=== PATIENT | female | born 1975 | race Caucasian/White ===

== ENCOUNTER 2020-05-31 11:24 | Outpatient (CLI) | payer OTHER, SELFPAY ==
--- NOTE | ~2020-05-31 | MMUS_ITS ---
EXAMINATION: MM diagnostic justo BI w lynda, US breast RT limited HISTORY: Right breast soreness and palpable bump TECHNIQUE: Additional 3-D tomosynthesis images of the breasts were performed and synthetic 2-D images were generated. CAD analysis was submitted and interpreted. High resolution bilateral breast ultraso und was performed. COMPARISON: No prior studies for comparison. BREAST PARENCHYMAL COMPOSITION: Breast composed of scattered areas of fibroglandular density. FINDINGS: MAMMOGRAPHIC FINDINGS: There are no suspicious masses, calcifications or architectural distortion to suggest malignancy. ULTRASOUND: Right breast ultrasound: At 10-11 o'clock, 6 cm from the nipple in the area of palpable concern there is a 5 mm cyst. No suspicious masses to suggest malignancy. IMPRESSION: 1. No evidence for malignancy in either breast. 2. Routine yearly screening mammogram and regular clinical breast examination are recommended. BI-RADS Category 2: Benign finding(s). Reviewed, dictated and finalized at location A. IMPRESSION: 1. No evidence for malignancy in either breast. 2. Routine yearly screening mammogram and regular clinical breast examination a re recommended. BI-RADS Category 2: Benign finding(s).
== END 2020-05-31 11:25 | disposition home or self-care (01) ==
LOC: ANHIMG 11:26
PROVIDERS: PCP Internal Medicine Geriatric Medicine; Visit Provider Nurse Practitioner Obstetrics & Gynecology
DX: N64.4 Mastodynia (principal)
CPT/HCPCS: 76642; 77062; 77066; G0279

== ENCOUNTER 2021-05-28 18:58 | Emergency (ER) | payer OTHER, SELFPAY ==
[2021-05-28 19:04] VITALS: BP 147/85; PULSE 80; RESP 14; TEMP 36.7; O2SAT 99
--- NOTE | 2021-05-28 19:06 | ED.GENADULT ---
HPI - General Adult General Chief complaint: Skin/Abscess/Foreign Body Stated complaint: Bee sting on thigh hot and swelling Time Seen by Provider: 05/28/21 19:10 Source: patient and RN notes reviewed Mode of arrival: ambulatory Limitations: no limitations History of Present Illness HPI narrative: 45-year-old female presents with concern for red, warm, swollen, itchy bee sting site on her left thigh. Reports she was stung yesterday and the area became red, reports since this morning it is grown at least 3 times in size. She denies fever, body aches, chills, sweats. Reports she has used topical hydrocortisone cream, oral Benadryl, home remedies such as baking soda paste with no relief. She denies swollen lips, swollen tongue, trouble breathing. Patient is 3 days into a Z-Reginaldo for exposure to strep throat. MD complaint: Insect sting Related Data Home Medications Medication Instructions Recorded Confirmed azithromycin 250 mg PO DAILY 05/28/21 05/28/21 sertraline [Zoloft] 50 mg PO DAILY 05/28/21 05/28/21 Allergies Allergy/AdvReac Type Severity Reaction Status Date / Time ciprofloxacin Allergy Intermediate RASH Verified 03/08/15 14:24 Penicillins Allergy Mild Hives Verified 05/28/21 19:15 Review of Systems Review of Systems: CONSTITUTIONAL: Denies malaise, chills, sweats, or fever. ENT: Denies swollen lips, swollen tongue CARDIOVASCULAR: Denies chest pain, palpitations, or edema. RESPIRATORY: Denies cough or dyspnea. GASTROINTESTINAL: Denies abdominal pain, nausea, vomiting SKIN: Reports red, tender, itchy, warm bee sting site on her left thigh MUSCULOSKELETAL: Denies myalgia. All systems reviewed & are unremarkable except as noted in HPI and below PMFSH Comments At time of signature, agree with nursing past medical, surgical, social and family history. There is no relevant family history pertinent to the presenting complaint Exam Narrative: GENERAL: Well-appearing, well-nourished, and in no acute distress. HEAD: Normocephalic, atraumatic. EYES: PERRLA, conjunctivae clear ENT: Mucous membranes moist. NECK: Supple. No lymphadenopathy CHEST: Clear to auscultation. No respiratory distress. HEART: Regular rate and rhythm. SKIN: Warm, dry. 7cm x 4cm slightly raised warm, tender, erythematous indurated area with no fluctuance surrounded by 17cm in diameter area of erythema no scabbed area, no stinger noted NEURO: Alert and oriented x3. PSYCH: Normal mood and affect Course Course Emergency Course: Patient is aware of diagnosis, understands and agrees to treatment plan. Anticipatory guidance given. Patient agrees to follow-up as directed and is aware of reasons to seek care at the emergency department. Portions of this record may have been created with voice recognition software Vital Signs Vital signs: Reviewed. Medical Decision Making MDM Narrative Medical decision making narrative: Exam findings show no acute concerns or changes; patient is non-toxic appearing and is in no distress. Patient is appropriate for outpatient treatment and follow-up. Differential Diagnosis Differential Diagnosis: Allergic reaction, cellulitis, insect bite, local reaction insect bite Critical Care Time Critical Care Time Critical Care Time: No Discharge Plan Discharge Clinical Impression: Insect bite of left thigh with local reaction Qualifiers: Encounter type: initial encounter Qualified Code(s): S70.362A - Insect bite (nonvenomous), left thigh, initial encounter Patient Disposition: Home, Self-Care Condition: Stable Instructions: Insect Bite or Sting (ED) Additional Instructions: Take steroid as directed Apply ice to the sting site and swollen area for pain and itch relief. Apply ice for 20 minutes once every hour as needed. Wrap the ice in a towel or keep a cloth between the ice and skin to keep from freezing the skin. Continue taking an antihistamine such as diphenhydramine (Benadryl) every 6 hours or a nonsedating o
[2021-05-28 19:16] VITALS: BP 147/85; PULSE 80; RESP 14; TEMP 36.7; O2SAT 99
[2021-05-28] MEDS: methylPREDNISolone SOD SUCC 125 MG VIAL IM (19:23)
== END 2021-05-28 19:43 | disposition home or self-care (01) ==
PROVIDERS: Emergency Provider Nurse Practitioner
DX: T63.441A Toxic effect of venom of bees, accidental (unintentional), initial encounter (principal); F32.9 Major depressive disorder, single episode, unspecified
CPT/HCPCS: 96372; 99213; G0463; J2930

== ENCOUNTER 2021-07-15 08:16 | Outpatient (CLI) | payer OTHER, SELFPAY ==
--- NOTE | ~2021-07-15 | MM_ITS ---
EXAMINATION: MM screening justo BI w lynda HISTORY: Screening mammogram TECHNIQUE: Craniocaudal and mediolateral oblique 3-D tomosynthesis images were obtained and synthetic 2-D images were generated. CAD analysis was submitted and interpreted. COMPARISON: 05/31/2020 bilateral diagnostic mammography and limited right breast ultrasound BREAST PARENCHYMAL COMPOSITION: The breasts are almost entirely fatty. FINDINGS: There is no evidence of suspicious mass, calcification, or architectural distortion to sugg est malignancy in either breast. There has been no suspicious interval change. IMPRESSION: 1. No mammographic evidence of malignancy. 2. Recommend routine screening mammography in one year. BI-RADS Category 1: Negative Reviewed, dictated and finalized at location A.
== END 2021-07-15 08:17 | disposition home or self-care (01) ==
LOC: ANHIMG 08:17
PROVIDERS: PCP Nurse Practitioner Adult Health; Visit Provider Nurse Practitioner Obstetrics & Gynecology
DX: Z12.31 Encounter for screening mammogram for malignant neoplasm of breast (principal)
CPT/HCPCS: 77063; 77067

== ENCOUNTER 2022-07-19 07:56 | Outpatient (CLI) | payer OTHER, SELFPAY ==
--- NOTE | ~2022-07-19 | MM_ITS ---
EXAMINATION: MM screening justo BI w lynda HISTORY: Screening TECHNIQUE: Craniocaudal and mediolateral oblique 3-D tomosynthesis images were obtained and synthetic 2-D images were generated. CAD analysis was submitted and interpreted. COMPARISON: Comparison to multiple prior studies sequentially, with oldest reviewed study dated 09/2019. BREAST PARENCHYMAL COMPOSITION: Breast composed of scattered areas of fibroglandular density FINDINGS: There is no evidence of suspicious mass, calcification, or architectural distortion to sugg est malignancy in either breast. There has been no suspicious interval change. IMPRESSION: 1. No mammographic evidence of malignancy. 2. Recommend routine screening mammography in one year. BI-RADS Category 1: Negative Reviewed, dictated and finalized at location A.
== END 2022-07-19 07:57 | disposition home or self-care (01) ==
PROVIDERS: PCP Nurse Practitioner Adult Health; Visit Provider Nurse Practitioner Obstetrics & Gynecology
DX: Z12.31 Encounter for screening mammogram for malignant neoplasm of breast (principal)
CPT/HCPCS: 77063; 77067

== ENCOUNTER → 2023-07-24 15:22 | Outpatient (CLI) | payer OTHER, SELFPAY ==
--- NOTE | ~2023-07-24 | US_ITS ---
EXAMINATION: US pelvic complete w TV DATE: 07/24/2023 15:52 INDICATION: Left pelvic pain Comparison:04/14/2015 TECHNIQUE: Multiple transabdominal and endovaginal sonographic images of the pelvis performed. FINDINGS: The uterus measures 8.8 x 5.1 x 3.6 cm. There is a nabothian cysts. The endometrial complex measures 8 mm. The right ovary measures 2.6 x 2.7 x 3.3 cm . There is a complicated 2.3 cm right ovarian cyst. There is normal Doppler signal in the right ovary . The left ovary is not visualized. There is no free fluid in the pelvis. There are no abnormal mass es seen on either side. IMPRESSION: 1. Complicated 2.3 cm right ovarian cyst. Reviewed, dictated and finalized at location B.
== END ==
PROVIDERS: PCP Nurse Practitioner Adult Health
DX: R10.2 Pelvic and perineal pain (principal); N83.201 Unspecified ovarian cyst, right side
CPT/HCPCS: 76830; 76856

== ENCOUNTER 2023-07-29 14:19 | Outpatient (CLI) | payer OTHER, SELFPAY ==
--- NOTE | ~2023-07-29 | MM_ITS ---
EXAMINATION: MM screening [facility] BI w lynda HISTORY: Screening mammogram TECHNIQUE: Craniocaudal and mediolateral oblique 3-D tomosynthesis images were obtained and synthetic 2-D images were generated. CAD analysis was submitted and interpreted. COMPARISON: 07/19/2022, 07/15/2021, 05/31/2020 BREAST PARENCHYMAL COMPOSITION: There are scattered areas of fibroglandular density. FINDINGS: No suspicious mass, calcification, or architectural distortion are identified in either zuleyka ast to suggest malignancy. There has been no suspicious interval change. IMPRESSION: 1. No mammographic evidence of malignancy. 2. Recommend routine screening mammography in one year. BI-RADS Category 1: Negative Reviewed, dictated and finalized at location A.
== END 2023-07-29 14:20 | disposition home or self-care (01) ==
LOC: ANHIMG 14:21
PROVIDERS: PCP Nurse Practitioner Adult Health; Visit Provider Nurse Practitioner Adult Health
DX: Z12.31 Encounter for screening mammogram for malignant neoplasm of breast (principal)
CPT/HCPCS: 77063; 77067

== ENCOUNTER 2023-09-05 08:46 | Day surgery (SDC) | payer OTHER, SELFPAY ==
[2023-08-06 14:11] VITALS: BMI 38.9
[2023-08-21 08:46] VITALS: BMI 38.9
--- NOTE | 2023-09-04 17:03 | WPDANESEPPF ---
Anes - Initial Pre Proc Eval Procedure: Operation Date: 09/05/23 11:00 Proposed Procedures p Screening Colonoscopy - Adiel Rothman MD Date/Time: 09/04/23 17:03 Surgeon: Adiel Rothman MD Pre Op Diagnosis: Neoplasm Screening Patient Data Age: 47 Gender: F Height: 1.63 m Weight: 103 kg Allergies Allergy/AdvReac Type Severity Reaction Status Date / Time ciprofloxacin Allergy Intermediate RASH Verified 09/05/23 10:05 Penicillins Allergy Mild Hives Verified 09/05/23 10:05 Home Medications Medication Instructions Recorded Confirmed Type sertraline 50 mg tablet (Zoloft) 50 mg PO DAILY 05/28/21 09/05/23 History alprazolam 0.25 mg tablet 0.25 mg PO DAILY PRN anxiety #30 06/26/23 09/05/23 Rx tabs cholecalciferol (vitamin D3) 125 125 mcg PO WEEKLY 06/26/23 09/05/23 History mcg (5,000 unit) capsule fexofenadine 180 mg tablet 180 mg PO DAILY 06/26/23 09/05/23 History (Luz Marina Allergy) semaglutide 2 mg/dose (8 mg/3 mL) 2 mg subcut WEEKLY 06/26/23 09/05/23 History subcutaneous pen injector (Ozempic) ferrous sulfate 134 mg (27 mg 134 mg PO DAILY 08/21/23 09/05/23 History iron) tablet rimegepant 75 mg disintegrating 75 mg PO DAILY 08/21/23 09/05/23 History tablet (Nurtec ODT) Patient hx anesthesia problems: none Family hx anesthesia problems: none Results Review: All pre-operative results and documents have been reviewed as part of the pre-operative evaluation. [facility] Past Medical History Medical History (Updated 09/04/23 @ 17:04 by Stephen Xavier DO) Allergies Anxiety Asthma Surgical History Surgical History (System 08/06/23 @ 14:57 by Juliane Bruce) H/O sinus surgery H/O: History of appendectomy Family History Family History (System 08/06/23 @ 14:57 by Juliane Bruce) Father Malignant neoplasm of prostate Hypertension Mother Depression Sibling Hypertension Social History Social History (System 08/06/23 @ 14:57 by Juliane Bender Smoking status: Never smoker Alcohol intake: current Alcohol use details: 2x week Substance use: never Substance use type: does not use Lack of Transportation: No Lack of Food: Never True Current Housing: I Have Housing Concerned About Future Housing: No Difficulty Paying Gas/Electric Bills: No Difficulty Paying for Meds: No Currently Unemployed: No Education: Associate Degree Difficulty w/ Childcare or Family Care: No Living arrangements: with family 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 Informed Consent: The patient's anesthetic plan and its attendant risks and benefits were discussed with the patient/family/POA. Questions were solicited and answers provided to the satisfaction of the patient/family/POA.
[2023-09-05 10:13] VITALS: BMI 38.5
[2023-09-05 10:14] VITALS: BP 131/85; PULSE 90; RESP 18; TEMP 36.9; O2SAT 100
[2023-09-05] MEDS: LACTATED RINGERS 1,000 ML 150 ML IV CONT (10:27)
--- NOTE | 2023-09-05 10:31 | PM.HPGS ---
History of Present Illness History of Present Illness Consent: Risks, benefits, and alternatives have been discussed and questions answered. Patient agrees to proceed with procedure. Chief complaint: Neoplasm Screening Narrative: Keely Jj is a 47 year old female here for first screening colonoscopy Review of Systems Constitutional: Constitutional: Denies headache(s) and Denies weakness Eyes: Eyes: Denies blurry vision ENT: Reports Normal hearing present, Denies headache(s) and Denies neck pain Cardiovascular: Cardiovascular: Denies chest pain and Denies dyspnea Respiratory: Respiratory: Denies dyspnea Gastrointestinal: Gastrointestinal: Reports no additional gastrointestinal complaints Genitourinary: Genitourinary: Denies dysuria Musculoskeletal: Musculoskeletal: Denies neck pain Integumentary/Breasts: Skin/Breast: Denies dry skin Neurologic: Reports Normal hearing present, Denies headache(s) and Denies weakness Psychiatric: Psychiatric: Denies anxiety Endocrine: Endocrine: Denies change in body appearance Hematologic/Lymphatic: Hematologic/Lymphatic: Denies easy bleeding Allergic/Immunologic: Allergic/Immunologic: Denies urticaria PMFSH Past Medical History Medical History (Updated 09/04/23 @ 17:04 by Stephen Xavier DO) Allergies Anxiety Asthma Surgical History Surgical History (System 08/06/23 @ 14:57 by Juliane Bruce) H/O sinus surgery H/O: History of appendectomy Family History Family History (System 08/06/23 @ 14:57 by Juliane Bruce) Father Malignant neoplasm of prostate Hypertension Mother Depression Sibling Hypertension Social History Social History (System 08/06/23 @ 14:57 by Juliane Bruce) Smoking status: Never smoker Alcohol intake: current Alcohol use details: 2x week Substance use: never Substance use type: does not use Lack of Transportation: No Lack of Food: Never True Current Housing: I Have Housing Concerned About Future Housing: No Difficulty Paying Gas/Electric Bills: No Difficulty Paying for Meds: No Currently Unemployed: No Education: Associate Degree Difficulty w/ Childcare or Family Care: No Living arrangements: with family Additional occupation/education comments: [employer] Spiritual care concerns: No Agree to blood products: Yes Meds Home Medications and Allergies Home Medications Medication Instructions Recorded Confirmed Type sertraline 50 mg tablet (Zoloft) 50 mg PO DAILY 05/28/21 09/05/23 History alprazolam 0.25 mg tablet 0.25 mg PO DAILY PRN anxiety #30 06/26/23 09/05/23 Rx tabs cholecalciferol (vitamin D3) 125 125 mcg PO WEEKLY 06/26/23 09/05/23 History mcg (5,000 unit) capsule fexofenadine 180 mg tablet 180 mg PO DAILY 06/26/23 09/05/23 History (Luz Marina Allergy) semaglutide 2 mg/dose (8 mg/3 mL) 2 mg subcut WEEKLY 06/26/23 09/05/23 History subcutaneous pen injector (Ozempic) ferrous sulfate 134 mg (27 mg 134 mg PO DAILY 08/21/23 09/05/23 History iron) tablet rimegepant 75 mg disintegrating 75 mg PO DAILY 08/21/23 09/05/23 History tablet (Nurtec ODT) Allergies Allergy/AdvReac Type Severity Reaction Status Date / Time ciprofloxacin Allergy Intermediate RASH Verified 09/05/23 10:05 Penicillins Allergy Mild Hives Verified 09/05/23 10:05 Vital Signs Vital Signs - 24 hr 09/05/23 10:14 Temperature 98.5 F Pulse Rate 90 Respiratory Rate 18 Blood Pressure 131/85 Pulse Oximetry 100 Oxygen Delivery Room Air Exam Const: General: comfortable and no acute distress HENMT: Face/Nose/Sinus: Normal nares present Eyes: General: appearance normal, both eyes and all related structures Neck: Neck: no JVD Resp: Auscultation: clear to auscultation bilaterally Cardio: Rate: regular rate Rhythm: regular rhythm GI: Inspection: non-distended GI Palp: Yes Soft to palpation Skin: General skin exam: normal c
[2023-09-05 10:47] VITALS: BP 131/84; PULSE 85; RESP 16; O2SAT 100
[2023-09-05 10:57] VITALS: BP 103/65; PULSE 82; RESP 18; O2SAT 100
[2023-09-05 11:07] VITALS: BP 128/86; PULSE 85; RESP 18; O2SAT 100
--- NOTE | 2023-09-05 12:22 | WPDANESPN ---
Anes - Prog Note Post-Op Date/Time: 09/05/23 12:22 Cardiovascular status: normal Respiratory status: normal Airway patency: baseline Mental status: baseline Post-Op hydration status: normal Vital Signs: Last Vital Signs Temp 36.9 C 09/05/23 10:14 Pulse 85 09/05/23 11:07 Resp 18 09/05/23 11:07 BP 128/86 09/05/23 11:07 Pulse Ox 100 09/05/23 11:07 O2 Del Method Room Air 09/05/23 11:07 Pain Score (VAS): 0 I/O: Intake & Output 09/04/23 09/05/23 09/05/23 23:59 07:59 15:59 Intake Total 300 Balance 300 Post-procedural complaints: none Patient Feedback: Patient satisfied with anesthetic care. Other Findings: Patient vital signs back to baseline. Patient denies nausea and vomiting. Patient's pain under control. Patient OK for discharge.
== END 2023-09-05 11:17 | disposition home or self-care (01) ==
PROVIDERS: PCP Nurse Practitioner Adult Health; Visit Provider Internal Medicine Gastroenterology
PROC: 0DJD8ZZ Inspection of Lower Intestinal Tract, Via Natural or Artificial Opening Endoscopic (ICD-10-PCS; CPT 45378; principal; 2023-09-05 11:00)
DX: Z12.11 Encounter for screening for malignant neoplasm of colon (principal); K57.30 Diverticulosis of large intestine without perforation or abscess without bleeding; K64.8 Other hemorrhoids
CPT/HCPCS: 45378

== ENCOUNTER 2024-11-06 07:56 | Outpatient (CLI) | payer OTHER, SELFPAY ==
--- NOTE | ~2024-11-06 | MM_ITS ---
EXAMINATION: MM screening [facility] BI w lynda HISTORY: Screening mammogram TECHNIQUE: Craniocaudal and mediolateral oblique 3-D tomosynthesis images were obtained and synthetic 2-D images were generated. CAD analysis was submitted and interpreted. COMPARISON: 07/29/2023, 07/19/2022, 07/15/2021 BREAST PARENCHYMAL COMPOSITION:Not Dense. There are scattered areas of fibroglandular density. FINDINGS: No suspicious mass, calcification, or architectural distortion are identified in either zuleyka ast to suggest malignancy. There has been no suspicious interval change. IMPRESSION: No mammographic evidence of malignancy. Recommend routine screening mammography in one year. BI-RADS Category 1: Negative Reviewed, dictated and finalized at location . 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
--- OUTSIDE RECORDS SUMMARY | 2024-11-06 08:01 | XMS_ITS | Data Portability ---
Author Organization [facility], Main Office Address [address] [place] [phone] Assessment No assessment recorded. Plan of Treatment Reminders Order Date Submit Date Provider Last Modified By Organization Details Last Modified Time Details Appointments None record ed. Lab None record ed. Referral None record ed. Procedures None record ed. Surgeries None record ed. Imaging None record ed. Medication Orders None record ed. Patient TargetsNo targets recorded. Patient InstructionsNo instructions recorded. Reason for Referral None Reported. Results Created Date Observation Date Name Description Value Unit Range Abnormal Flag Note LastModifiedBy Organization Detail LastModifiedTime 06/20/20 21 06/21/2021 HEMOG LOBIN A1C hemoglobin A1C 5.4 %_of_ total _HGB <5.7 normal Not Available [facility] [address] [place], [address], 06/21/2021 15:00:40 06/20/20 21 06/21/2021 VITAM IN B12/F OLATE , SERUM PANEL vitamin B12 341 pg/mL 200-11 00 normal Pleas e Note: Altho ugh the refer ence range for vitam in B12 is 200-1 100 pg/mL , it has been repor arun that betwe en 5 and 10% of patie nts with value s betwe en 200 and 400 pg/mL may exper ience neuro psych iatri c and hemat ologi c abnor malit ies due to occul t B12 defic iency ; less than 1% of patie nts with value s above 400 pg/mL will have sympt oms. Not Available [facility] [address] [place], [address], 06/21/2021 15:00:39 06/20/20 21 06/21/2021 VITAM IN B12/F OLATE , SERUM PANEL folate, serum 6.9 NG/mL normal Refer ence Range Low: <3.4 Borde rline : 3.4-5 .4 Marilu l: >5.4 Not Available [facility] [address] [place], [address], 06/21/2021 15:00:39 06/20/2006/21/2021 TSH TSH 2.42 mIU/L normal Refer ence Range > or = 20 Years 0.40- 4.50 Pregn lashay Range s First trime ster 0.26- 2.66 Secon d trime ster 0.55- 2.73 Third trime ster 0.43- 2.91 Not Available [facility] [address] [place], [address], 06/21/2021 15:00:38 06/20/2006/21/2021 T4, FREE T4, free 0.9 NG/dL 0.8-1. 8 normal Not Available [facility] [id number] [place], [place] [address], [address], 06/21/2021 15:00:37 06/20/2006/21/2021 INSUL IN insulin 13.5 uIU/m L normal Refer ence Range < or = 19.6 Risk: Optim al < or = 19.6 Moder ate NA High >19.6 Adult cardi ovasc ular event risk categ ory cut point s (opti mal, moder ate, high) are based on [facility] popul ation data from 09/18 11. This insul in assay shows stron g cross -reac tivit y for some insul in analo gs (lisp ro, aspar t, and glarg ine) and much lower cross -reac tivit y with other s (dete ariana, gluli sine) . Not Available [facility] [address] [place], [address], 06/21/2021 15:00:36 06/20/20 21 06/21/2021 THYRO ID PEROX IDASE ANTIB ODIES thyroid peroxidase antibodies 1 IU/mL <9 normal Not Available [address], [address], 06/21/2021 15:00:34 06/20/20 21 06/21/2021 CBC (INCL UDES DIFF/ PLT) white blood cell count 7.2 thous and/u L 3.8-10 .8 normal Not Available [address], [address], 06/21/2021 15:00:33 06/20/2006/21/2021 CBC (INCL UDES DIFF/ PLT) red blood cell count 4.48 sloane on/uL 3.80-5 .10 normal Not Available [address], [address], 06/21/2021 15:00:33 06/20/2006/21/2021 CBC (INCL UDES DIFF/ PLT) hemoglobin 11.5 g/dL 11.7-1 5.5 low Not Available [address], [address], 06/21/2021 15:00:33 06/20/20 21 06/21/2021 CBC (INCL UDES DIFF/ PLT) hematocrit 37.3 % 35.0-4 5.0 normal Not Available [address], [address], 06/21/2021 15:00:33 06/20/2006/21/2021 CBC (INCL UDES DIFF/ PLT) MCV 83.3 fL 80.0-1 00.0 normal Not Available [address], [address], 06/21/2021 15:00:33 06/20/20 21 06/21/2021 CBC (INCL UDES DIFF/ PLT) MCH 25.7 pg 27.0-3 3.0 low Not Available [address], [address], 06/21/2021 15:00:33 06/20/2006/21/2021 CBC (INCL UDES DIFF/ PLT) MCHC 30.8 g/dL 32.0-3 6.0 low Not Available [address], [address], 06/21/2021 15:00:33 06/20/2006/21/2021 CBC (INCL UDES DIFF/ PLT) RDW 14.3 % 11.0-1 5.0 normal Not Available [address], [address], 06/21/2021 15:00:33 06/20/2006/21/2021 CBC (INCL UDES DIFF/ PLT) platelet count 234 thous and/u L 140-40 0 normal Not Available [address], [address], 06/21/2021 15:00:33 06/20/2006/21/2021 CBC (INCL UDES DIFF/ PLT) MPV 12.3 fL 7.5-12 .5 normal Not Available [address], [address], 06/21/2021 15:00:33 06/20/20 21 06/21/2021 CBC (INCL UDES DIFF/ PLT) absolute neutrophils 5090 cells /uL 1500-7 800 normal Not Available [address], [address], 06/21/2021 15:00:33 06/20/2006/21/2021 CBC (INCL UDES DIFF/ PLT) absolute lymphocytes 1454 cells /uL 850-39 00 normal Not Available [address], [address], 06/21/2021 15:00:33 06/20/20 21 06/21/2021 CBC (INCL UDES DIFF/ PLT) absolute monocytes 446 cells /uL 200-95 0 normal Not Available [address], [address], 06/21/2021 15:00:33 06/20/2006/21/2021 CBC (INCL UDES DIFF/ PLT) absolute eosinophils 166 cells /uL 15-500 normal Not Available [address], [address], 06/21/2021 15:00:33 06/20/2006/21/2021 CBC (INCL UDES DIFF/ PLT) absolute basophils 43 cells /uL 0-200 normal Not Available [address], [address], 06/21/2021 15:00:33 06/20/20 21 06/21/2021 CBC (INCL UDES DIFF/ PLT) neutrophils 70.7 % normal Not Available [address], [address], 06/21/2021 15:00:33 06/20/2006/21/2021 CBC (INCL UDES DIFF/ PLT) lymphocytes 20.2 % normal Not Available [address], [address], 06/21/2021 15:00:33 06/20/2006/21/2021 CBC (INCL UDES DIFF/ PLT) monocytes 6.2 % normal Not Available [address], [address], 06/21/2021 15:00:33 06/20/2006/21/2021 CBC (INCL UDES DIFF/ PLT) eosinophils 2.3 % normal Not Available [address], [address], 06/21/2021 15:00:33 06/20/20 21 06/21/2021 CBC (INCL UDES DIFF/ PLT) basophils 0.6 % normal Not Available [address], [address], 06/21/2021 15:00:33 06/20/20 21 06/21/2021 COMPR EHENS ALESSANDRO METAB OLIC PANEL glucose 88 mg/dL 65-99 normal Fasti ng refer ence inter sherri Not Available [address], [address], 06/21/2021 15:00:33 06/20/20 21 06/21/2021 COMPR EHENS ALESSANDRO METAB OLIC PANEL urea nitrogen (BUN) 18 mg/dL 7-25 normal Not Available [address], [address], 06/21/2021 15:00:33 06/20/20 21 06/21/2021 COMPR EHENS ALESSANDRO METAB OLIC PANEL creatinine 0.64 mg/dL 0.50-1 .10 normal Not Available [address], [address], 06/21/2021 15:00:33 06/20/20 21 06/21/2021 COMPR EHENS ALESSANDRO METAB OLIC PANEL eGFR non-afr. singaporean 109 mL/mi n/1.7 3m2 > or = 60 normal Not Available [address], [address], 06/21/2021 15:00:33 06/20/20 21 06/21/2021 COMPR EHENS ALESSANDRO METAB OLIC PANEL eGFR 127 mL/mi n/1.7 3m2 > or = 60 normal Not Available [address], [address], 06/21/2021 15:00:33 06/20/20 21 06/21/2021 COMPR EHENS ALESSANDRO METAB OLIC PANEL BUN/creatini ne ratio not applic able (calc ) 6-22 Not Available [address], [address], 06/21/2021 15:00:33 06/20/20 21 06/21/2021 COMPR EHENS ALESSANDRO METAB OLIC PANEL sodium 140 mmol/ L 135-14 6 normal Not Available [address], [address], 06/21/2021 15:00:33 06/20/20 21 06/21/2021 COMPR EHENS ALESSANDRO METAB OLIC PANEL potassium 4.4 mmol/ L 3.5-5. 3 normal Not Available [address], [address], 06/21/2021 15:00:33 06/20/20 21 06/21/2021 COMPR EHENS ALESSANDRO METAB OLIC PANEL chloride 106 mmol/ L 98-110 normal Not Available [address], [address], 06/21/2021 15:00:33 06/20/20 21 06/21/2021 COMPR EHENS ALESSANDRO METAB OLIC PANEL carbon dioxide 28 mmol/ L 20-32 normal Not Available [address], [address], 06/21/2021 15:00:33 06/20/20 21 06/21/2021 COMPR EHENS ALESSANDRO METAB OLIC PANEL calcium 9.3 mg/dL 8.6-10 .2 normal Not Available [address], [address], 06/21/2021 15:00:33 06/20/20 21 06/21/2021 COMPR EHENS ALESSANDRO METAB OLIC PANEL protein, total 6.3 g/dL 6.1-8. 1 normal Not Available [address], [address], 06/21/2021 15:00:33 06/20/20 21 06/21/2021 COMPR EHENS ALESSANDRO METAB OLIC PANEL albumin 3.7 g/dL 3.6-5. 1 normal Not Available [address], [address], 06/21/2021 15:00:33 06/20/20 21 06/21/2021 COMPR EHENS ALESSANDRO METAB OLIC PANEL globulin 2.6 g/dL_ (calc ) 1.9-3. 7 normal Not Available [address], [address], 06/21/2021 15:00:33 06/20/20 21 06/21/2021 COMPR EHENS ALESSANDRO METAB OLIC PANEL albumin/glob ulin ratio 1.4 (calc ) 1.0-2. 5 normal Not Available [address], [address], 06/21/2021 15:00:33 06/20/20 21 06/21/2021 COMPR EHENS ALESSANDRO METAB OLIC PANEL bilirubin, total 0.3 mg/dL 0.2-1. 2 normal Not Available [address], [address], 06/21/2021 15:00:33 06/20/20 21 06/21/2021 COMPR EHENS ALESSANDRO METAB OLIC PANEL alkaline phosphatase 76 U/L 31-125 normal Not Available [address], [address], 06/21/2021 15:00:33 06/20/20 21 06/21/2021 COMPR EHENS ALESSANDRO METAB OLIC PANEL AST 16 U/L 10-30 normal Not Available [address], [address], 06/21/2021 15:00:33 06/20/20 21 06/21/2021 COMPR EHENS ALESSANDRO METAB OLIC PANEL ALT 19 U/L 6-29 normal Not Available [address] [address] [place], [address], 06/21/2021 15:00:33 06/20/2006/21/2021 LIPID PANEL , STAND ATRUN cholesterol, total 181 mg/dL <200 normal Not Available [address] [address] [place], [address], 06/21/2021 15:00:32 06/20/2006/21/2021 LIPID PANEL , STAND TARUN HDL cholesterol 54 mg/dL > or = 50 normal Not Available [address], [address], 06/21/2021 15:00:32 06/20/2006/21/2021 LIPID PANEL , STAND TARUN triglyceride s 150 mg/dL <150 high Not Available [address], [address], 06/21/2021 15:00:32 06/20/2006/21/2021 LIPID PANEL , STAND TARUN LDL-choleste rol 102 mg/dL _(lauren c) high Refer ence range : <100 Dina able range <100 mg/dL for prima ry preve ntion ; <70 mg/dL for patie nts with CHD or diabe tic patie nts with > or = 2 CHD risk facto rs. LDL-C is now calcu lated using the Gogo n-Hop kins calcu esme n, which is a valid ated novel metho d provi ding karmen r accur acy than the Fried mynor equat ion in the estim ation of LDL-C . Gogo ding SS et al. FIDEL. 2013; 310(1 9): 2061- 2068 (http ://ed ucati on.Qu Shelli cooleyDiscrete Sports. com/f aq/FA Q164) Not Available [facility] [address] [address] [place], [address], 06/21/2021 15:00:32 09/21/20 21 06/21/2021 LIPID PANEL , STAND TARUN chol/HDLC ratio 3.4 (calc ) <5.0 normal Not Available [address], [address], 06/21/2021 15:00:32 06/20/20 21 06/21/2021 LIPID PANEL , STAND TARUN non HDL cholesterol 127 mg/dL _(lauren c) <130 normal For patie nts with diabe kate plus 1 major ASCVD risk facto r, treat ing to a non-H DL-C goal of <100 mg/dL (LDL- C of <70 mg/dL ) is satinder mccloud optio n. Not Available [address], [address], 06/21/2021 15:00:32 07/19/2007/20/2021 HELEN TIN ferritin 12 NG/mL 16-232 low Not Available [address], [address], 07/20/2021 11:11:34 07/19/2007/20/2021 IRON AND TOTAL IRON CECILY NG CAPAC ITY iron, total 56 mcg/d L 40-190 normal Not Available [address], [address], 07/20/2021 11:11:33 07/19/2007/20/2021 IRON AND TOTAL IRON CECILY NG CAPAC ITY iron binding capacity 380 mcg/d L_(ca lc) 250-45 0 normal Not Available [address], [address], 07/20/2021 11:11:33 07/19/20 21 07/20/2021 IRON AND TOTAL IRON CECILY NG CAPAC ITY % saturation 15 %_(ca lc) 16-45 low Not Available [address], [address], 07/20/2021 11:11:33 07/21/20 21 08/02/2021 FECAL GLOBI N BY IMMUN OCHEM ISTRY fecal globin by immunochemis try see note FECAL GLOBI N BY IMMUN OCHEM ISTRY Micro Numbe r: [id number] Test Statu s: Final Speci men Sourc e: Insur e (tm) fobt test card Speci men Quali ty: Adequ ate Fecal Globi n: Not Detec arun Not Available [facility] [address] [address] [place], [address], 08/02/2021 14:20:22 02/14/20 22 02/14/2022 VITAM IN D,25- OH,TO GWENDOLYN,I A vitamin D,25-oh,tota l,ia 33 NG/mL 30-100 normal Vitam in D Statu s 25-OH Vitam in D: Defic iency : <20 ng/mL Insuf ficie ncy: 20 - 29 ng/mL Optim al: > or = 30 ng/mL For 25-OH Vitam in D testi ng on patie nts on D2-cormier pplem entat ion and patie nts for whom quant itati on of D2 and D3 fract ions is requi red, the [facility] eD(TM ) 25-OH VIT D, (D2,D 3), LC/MS /MS is recom karen d: order code 04834 (bonifacio ents >2yrs ). See Note 1 Note 1 For addit ional infor meghann horowitz e refer to http: //cynthia Whittaker stDia gnost ics.c om/fa q/FAQ 199 (This link is being provi ded for infor cale garibay/ educgayatri skinner purpo ses only. ) Not Available [facility] [address] [place], [address], 02/14/2022 07:54:42 02/14/20 22 02/14/2022 VITAM IN B12/F OLATE , SERUM PANEL vitamin B12 340 pg/mL 200-11 00 normal Plebrett e Note: Altho ugh the refer ence range for vitam in B12 is 200-1 100 pg/mL , it has been repor arun that betwe en 5 and 10% of patie nts with value s betwe en 200 and 400 pg/mL may exper ience neuro psych iatri c and hemat ologi c abnor malit ies due to occul t B12 defic iency ; less than 1% of patie nts with value s above 400 pg/mL will have sympt oms. Not Available [facility] [address], [address], 02/14/2022 07:54:41 02/14/20 22 02/14/2022 VITAM IN B12/F OLATE , SERUM PANEL folate, serum 9.9 NG/mL normal Refer ence Range Low: <3.4 Borde rline : 3.4-5 .4 Marilu l: >5.4 Not Available [facility] [address], [address], 02/14/2022 07:54:41 02/14/2002/14/2022 TSH TSH 1.74 mIU/L normal Refer ence Range > or = 20 Years 0.40- 4.50 Pregn lashay Range s First trime ster 0.26- 2.66 Secon d trime ster 0.55- 2.73 Third trime ster 0.43- 2.91 Not Available [facility] [address], [address], 02/14/2022 07:54:41 02/14/2002/14/2022 HELEN TIN ferritin 11 NG/mL 16-232 low Not Available [facility] [address], [address], 02/14/2022 07:54:40 02/14/20 22 02/14/2022 CBC (INCL UDES DIFF/ PLT) white blood cell count 7.5 thous and/u L 3.8-10 .8 normal Not Available [facility] [address], [address], 02/14/2022 07:54:39 02/14/20 22 02/14/2022 CBC (INCL UDES DIFF/ PLT) red blood cell count 4.62 sloane on/uL 3.80-5 .10 normal Not Available [address], [address], 02/14/2022 07:54:39 02/14/20 22 02/14/2022 CBC (INCL UDES DIFF/ PLT) hemoglobin 12.7 g/dL 11.7-1 5.5 normal Not Available [address], [address], 02/14/2022 07:54:39 02/14/2002/14/2022 CBC (INCL UDES DIFF/ PLT) hematocrit 39.6 % 35.0-4 5.0 normal Not Available [address], [address], 02/14/2022 07:54:39 02/14/20 22 02/14/2022 CBC (INCL UDES DIFF/ PLT) MCV 85.7 fL 80.0-1 00.0 normal Not Available [address], [address], 02/14/2022 07:54:39 02/14/2002/14/2022 CBC (INCL UDES DIFF/ PLT) MCH 27.5 pg 27.0-3 3.0 normal Not Available [address], [address], 02/14/2022 07:54:39 02/14/20 22 02/14/2022 CBC (INCL UDES DIFF/ PLT) MCHC 32.1 g/dL 32.0-3 6.0 normal Not Available [address], [address], 02/14/2022 07:54:39 02/14/20 22 02/14/2022 CBC (INCL UDES DIFF/ PLT) RDW 13.5 % 11.0-1 5.0 normal Not Available [address], [address], 02/14/2022 07:54:39 02/14/20 22 02/14/2022 CBC (INCL UDES DIFF/ PLT) platelet count 226 thous and/u L 140-40 0 normal Not Available [address], [address], 02/14/2022 07:54:39 02/14/20 22 02/14/2022 CBC (INCL UDES DIFF/ PLT) MPV 11.7 fL 7.5-12 .5 normal Not Available [address], [address], 02/14/2022 07:54:39 02/14/20 22 02/14/2022 CBC (INCL UDES DIFF/ PLT) absolute neutrophils 5175 cells /uL 1500-7 800 normal Not Available [address], [address], 02/14/2022 07:54:39 02/14/20 22 02/14/2022 CBC (INCL UDES DIFF/ PLT) absolute lymphocytes 1523 cells /uL 850-39 00 normal Not Available [address], [address], 02/14/2022 07:54:39 02/14/20 22 02/14/2022 CBC (INCL UDES DIFF/ PLT) absolute monocytes 555 cells /uL 200-95 0 normal Not Available [address], [address], 02/14/2022 07:54:39 02/14/20 22 02/14/2022 CBC (INCL UDES DIFF/ PLT) absolute eosinophils 218 cells /uL 15-500 normal Not Available [facility] [address], [address], 02/14/2022 07:54:39 02/14/20 22 02/14/2022 CBC (INCL UDES DIFF/ PLT) absolute basophils 30 cells /uL 0-200 normal Not Available [facility] [address], [address], 02/14/2022 07:54:39 02/14/20 22 02/14/2022 CBC (INCL UDES DIFF/ PLT) neutrophils 69 % normal Not Available [facility] [address], [address], 02/14/2022 07:54:39 02/14/20 22 02/14/2022 CBC (INCL UDES DIFF/ PLT) lymphocytes 20.3 % normal Not Available [address], [address], 02/14/2022 07:54:39 02/14/20 22 02/14/2022 CBC (INCL UDES DIFF/ PLT) monocytes 7.4 % normal Not Available [facility] [address], [address], 02/14/2022 07:54:39 02/14/20 22 02/14/2022 CBC (INCL UDES DIFF/ PLT) eosinophils 2.9 % normal Not Available [facility] [address], [address], 02/14/2022 07:54:39 02/14/20 22 02/14/2022 CBC (INCL UDES DIFF/ PLT) basophils 0.4 % normal Not Available [facility] [address], [address], 02/14/2022 07:54:39 02/14/20 22 02/14/2022 COMPR EHENS ALESSANDRO METAB OLIC PANEL creatinine 0.71 mg/dL 0.50-1 .10 normal Not Available [facility] [address], [address], 02/14/2022 07:54:39 02/14/20 22 02/14/2022 COMPR EHENS ALESSANDRO METAB OLIC PANEL eGFR non-afr. singaporean 104 mL/mi n/1.7 3m2 > or = 60 normal Not Available [address], [address], 02/14/2022 07:54:39 02/14/20 22 02/14/2022 COMPR EHENS ALESSANDRO METAB OLIC PANEL eGFR 120 mL/mi n/1.7 3m2 > or = 60 normal Not Available [address], [address], 02/14/2022 07:54:39 02/14/20 22 02/14/2022 COMPR EHENS ALESSANDRO METAB OLIC PANEL BUN/creatini ne ratio not applic able (calc ) 6-22 Not Available [address], [address], 02/14/2022 07:54:39 02/14/20 22 02/14/2022 COMPR EHENS ALESSANDRO METAB OLIC PANEL sodium 141 mmol/ L 135-14 6 normal Not Available [address], [address], 02/14/2022 07:54:39 02/14/20 22 02/14/2022 COMPR EHENS ALESSANDRO METAB OLIC PANEL potassium 4.2 mmol/ L 3.5-5. 3 normal Not Available [address], [address], 02/14/2022 07:54:39 02/14/20 22 02/14/2022 COMPR EHENS ALESSANDRO METAB OLIC PANEL chloride 107 mmol/ L 98-110 normal Not Available [address], [address], 02/14/2022 07:54:39 02/14/20 22 02/14/2022 COMPR EHENS ALESSANDRO METAB OLIC PANEL carbon dioxide 26 mmol/ L 20-32 normal Not Available [address], [address], 02/14/2022 07:54:39 02/14/20 22 02/14/2022 COMPR EHENS ALESSANDRO METAB OLIC PANEL calcium 9.1 mg/dL 8.6-10 .2 normal Not Available [address], [address], 02/14/2022 07:54:39 02/14/20 22 02/14/2022 COMPR EHENS ALESSANDRO METAB OLIC PANEL protein, total 6.5 g/dL 6.1-8. 1 normal Not Available [address], [address], 02/14/2022 07:54:39 02/14/20 22 02/14/2022 COMPR EHENS ALESSANDRO METAB OLIC PANEL albumin 3.8 g/dL 3.6-5. 1 normal Not Available [address], [address], 02/14/2022 07:54:39 02/14/20 22 02/14/2022 COMPR EHENS ALESSANDRO METAB OLIC PANEL globulin 2.7 g/dL_ (calc ) 1.9-3. 7 normal Not Available [address], [address], 02/14/2022 07:54:39 02/14/20 22 02/14/2022 COMPR EHENS ALESSANDRO METAB OLIC PANEL albumin/glob ulin ratio 1.4 (calc ) 1.0-2. 5 normal Not Available [address], [address], 02/14/2022 07:54:39 02/14/20 22 02/14/2022 COMPR EHENS ALESSANDRO METAB OLIC PANEL bilirubin, total 0.4 mg/dL 0.2-1. 2 normal Not Available [address] [place], [address], 02/14/2022 07:54:39 02/14/20 22 02/14/2022 COMPR EHENS ALESSANDRO METAB OLIC PANEL alkaline phosphatase 71 U/L 31-125 normal Not Available [address], [address], 02/14/2022 07:54:39 02/14/20 22 02/14/2022 COMPR EHENS ALESSANDRO METAB OLIC PANEL AST 15 U/L 10-30 normal Not Available [address], [address], 02/14/2022 07:54:39 02/14/20 22 02/14/2022 COMPR EHENS ALESSANDRO METAB OLIC PANEL ALT 13 U/L 6-29 normal Not Available [address], [address], 02/14/2022 07:54:39 02/14/20 22 02/14/2022 COMPR EHENS ALESSANDRO METAB OLIC PANEL glucose 79 mg/dL 65-99 normal Fasti ng refer ence inter sherri Not Available [address], [address], 02/14/2022 07:54:39 02/14/20 22 02/14/2022 COMPR EHENS ALESSANDRO METAB OLIC PANEL urea nitrogen (BUN) 15 mg/dL 7-25 normal Not Available [address], [address], 02/14/2022 07:54:39 02/14/20 22 02/14/2022 IRON AND TOTAL IRON CECILY NG CAPAC ITY iron, total 60 mcg/d L 40-190 normal Not Available [address], [address], 02/14/2022 07:54:39 02/14/20 22 02/14/2022 IRON AND TOTAL IRON CECILY NG CAPAC ITY iron binding capacity 384 mcg/d L_(ca lc) 250-45 0 normal Not Available [address], [address], 02/14/2022 07:54:39 02/14/20 22 02/14/2022 IRON AND TOTAL IRON CECILY NG CAPAC ITY % saturation 16 %_(ca lc) 16-45 normal Not Available [address], [address], 02/14/2022 07:54:39 02/14/20 22 02/14/2022 LIPID PANEL , STAND TARUN cholesterol, total 177 mg/dL <200 normal Not Available [address], [address], 02/14/2022 07:54:38 02/14/20 22 02/14/2022 LIPID PANEL , STAND TARUN HDL cholesterol 47 mg/dL > or = 50 low Not Available [address], [address], 02/14/2022 07:54:38 02/14/20 22 02/14/2022 LIPID PANEL , STAND TARUN triglyceride s 118 mg/dL <150 normal Not Available [address], [address], 02/14/2022 07:54:38 02/14/20 22 02/14/2022 LIPID PANEL , STAND TARUN LDL-choleste rol 107 mg/dL _(lauren c) high Refer ence range : <100 Dina able range <100 mg/dL for prima ry preve ntion ; <70 mg/dL for patie nts with CHD or diabe tic patie nts with > or = 2 CHD risk facto rs. LDL-C is now calcu lated using the Gogo n-Hop kins calcu esme n, which is a valid ated novel metho d provi diana peraza r accur acy than the Fried mynor equat ion in the estim ation of LDL-C . Gogo ding SS et al. FIDEL. 2013; 310(1 9): 2061- 2068 (http ://ed ucati on.Kaleb cooleyRSI Video [employer]. com/f aq/FA Q164) Not Available [facility] [address] [address] [place], [address], 02/14/2022 07:54:38 02/14/20 22 02/14/2022 LIPID PANEL , STAND TARUN chol/HDLC ratio 3.8 (calc ) <5.0 normal Not Available [facility] [address] [address] [address], [place], [address], 02/14/2022 07:54:38 02/14/2002/14/2022 LIPID PANEL , STAND TARUN non HDL cholesterol 130 mg/dL _(lauren c) <130 high For patie nts with diabe kate plus 1 major ASCVD risk facto r, treat ing to a non-H DL-C goal of <100 mg/dL (LDL- C of <70 mg/dL ) is consi noe a minesh liango n. Not Available [facility] [address] [place], [address], 02/14/2022 07:54:38 10/23/19 23 10/23/2022 HELEN TIN ferritin 21 NG/mL 6.24-1 37 Not Available [facility] (Lab) [address] [place], [address], 10/23/2022 15:02:04 10/23/19 23 10/23/2022 CBC/C OMPLE TE BLD COUNT W/DIF F white blood cells 9.4 x10'3 /uL 4.2-10 .8 Not Available [facility] (Lab) [address] [place], [address], 10/23/2022 14:41:27 10/23/19 23 10/23/2022 CBC/C OMPLE TE BLD COUNT W/DIF F red blood cells 5.03 x10'6 /uL 3.80-5 .20 Not Available [facility] (Lab) [address] [place], [address], 10/23/2022 14:41:27 10/23/19 23 10/23/2022 CBC/C OMPLE TE BLD COUNT W/DIF F hemoglobin 14.5 g/dL 12.0-1 5.6 Not Available [facility] (Lab) [address] [place], [address], 10/23/2022 14:41:27 10/23/19 23 10/23/2022 CBC/C OMPLE TE BLD COUNT W/DIF F hematocrit 44.6 % 35.7-4 5.7 Not Available [facility] (Lab) [address] [place], [address], 10/23/2022 14:41:27 10/23/19 23 10/23/2022 CBC/C OMPLE TE BLD COUNT W/DIF F mean red cell volume 88.7 fL 82.0-9 9.0 Not Available [facility] (Lab) [address] [place], [address], 10/23/2022 14:41:27 10/23/19 23 10/23/2022 CBC/C OMPLE TE BLD COUNT W/DIF F mean red cell hemoglobin 28.8 pg 27.0-3 3.0 Not Available [facility] (Lab) [address] [place], [address], 10/23/2022 14:41:27 10/23/19 23 10/23/2022 CBC/C OMPLE TE BLD COUNT W/DIF F mean RBC HGB concentratio n 32.5 g/dL 31.0-3 6.0 Not Available [facility] (Lab) [address] [place], [address], 10/23/2022 14:41:27 10/23/19 23 10/23/2022 CBC/C OMPLE TE BLD COUNT W/DIF F red cell distribution width 12.8 % 11.8-1 5.5 Not Available [facility] (Lab) [address] [place], [address], 10/23/2022 14:41:27 10/23/1910/23/2022 CBC/C OMPLE TE BLD COUNT W/DIF F platelets 272 x10'3 /uL 150-40 0 Not Available [facility] (Lab) [address] [place], [address], 10/23/2022 14:41:27 10/23/1910/23/2022 CBC/C OMPLE TE BLD COUNT W/DIF F mean platelet volume 12.3 fL 9.0-12 .4 Not Available [facility] (Lab) [address] [place], [address], 10/23/2022 14:41:27 10/23/1910/23/2022 CBC/C OMPLE TE BLD COUNT W/DIF F neutrophils 70.0 % 39.0-7 2.0 Not Available [facility] (Lab) [address] [place], [address], 10/23/2022 14:41:27 10/23/1910/23/2022 CBC/C OMPLE TE BLD COUNT W/DIF F lymphocytes 18.6 % 16.0-4 7.0 Not Available [facility] (Lab) [address] [place], [address], 10/23/2022 14:41:27 10/23/1910/23/2022 CBC/C OMPLE TE BLD COUNT W/DIF F monocytes 6.6 % 5.0-12 .0 Not Available [facility] (Lab) [address] [place], [address], 10/23/2022 14:41:27 10/23/1910/23/2022 CBC/C OMPLE TE BLD COUNT W/DIF F eosinophils 3.6 % 1.0-7. 0 Not Available [facility] (Lab) [address] [place], [address], 10/23/2022 14:41:27 10/23/1910/23/2022 CBC/C OMPLE TE BLD COUNT W/DIF F basophils 0.7 % 0.0-2. 0 Not Available [facility] (Lab) [address] [place], [address], 10/23/2022 14:41:27 10/23/1910/23/2022 CBC/C OMPLE TE BLD COUNT W/DIF F immature granulocytes 0.5 % 0.00-0 .50 Not Available [facility] (Lab) [address] [place], [address], 10/23/2022 14:41:27 10/23/1910/23/2022 CBC/C OMPLE TE BLD COUNT W/DIF F neutrophils, absolute count 6.57 x10'3 /uL 1.5-8. 0 Not Available [facility] (Lab) [address] [place], [address], 10/23/2022 14:41:27 10/23/19 23 10/23/2022 CBC/C OMPLE TE BLD COUNT W/DIF F lymphocytes, absolute count 1.75 x10'3 /uL 1.07-3 .43 Not Available [facility] (Lab) [address] [place], [address], 10/23/2022 14:41:27 10/23/1910/23/2022 CBC/C OMPLE TE BLD COUNT W/DIF F monocytes, absolute count 0.62 x10'3 /uL 0.29-0 .99 Not Available [facility] (Lab) [address] [place], [address], 10/23/2022 14:41:27 10/23/1910/23/2022 CBC/C OMPLE TE BLD COUNT W/DIF F eosinophils, absolute count 0.34 x10'3 /uL 0.02-0 .53 Not Available [facility] (Lab) [address] [place], [address], 10/23/2022 14:41:27 10/23/1910/23/2022 CBC/C OMPLE TE BLD COUNT W/DIF F basophils, absolute count 0.07 x10'3 /uL 0.01-0 .08 Not Available [facility] (Lab) [address] [place], [address], 10/23/2022 14:41:27 10/23/1910/23/2022 CBC/C OMPLE TE BLD COUNT W/DIF F immature granulocytes ,absolute 0.05 x10'3 /uL 0.00-0 .05 Not Available [facility] (Lab) [address] [place], [address], 10/23/2022 14:41:27 10/23/1910/23/2022 CBC/C OMPLE TE BLD COUNT W/DIF F nucleated red blood cells 0.0 % -[address] [facility] (Lab) [address] [place], [address], 10/23/2022 14:41:27 10/23/1910/23/2022 CBC/C OMPLE TE BLD COUNT W/DIF F NRBC# 0.00 x10'3 /uL Not Available [facility] (Lab) [address] [place], [address], 10/23/2022 14:41:27 10/23/1910/23/2022 IRON/ TIBC PANEL total iron binding capacity 397 mcg/d L 265-47 5 Not Available [facility] (Lab) [address] [place], [address], 10/23/2022 14:38:07 10/23/19 23 10/23/2022 IRON/ TIBC PANEL % transferrin saturation 18 % 20-55 low Not Available [facility] (Lab) [address] [place], [address], 10/23/2022 14:38:07 10/23/19 23 10/23/2022 IRON/ TIBC PANEL unsaturated iron bind capacity 324 mcg/d L 126-38 2 Not Available [facility] (Lab) [address] [place], [address], 10/23/2022 14:38:07 10/23/19 23 10/23/2022 IRON/ TIBC PANEL iron 73 mcg/d L 42-175 Not Available [facility] (Lab) [address] [place], [address], 10/23/2022 14:38:07 07/17/20 21 07/15/2021 imagi ng/[facility] [place] resul t No observ ation record ed. [id number], [place], [address], 11/28/2022 17:12:57 06/29/20 22 06/29/2022 CT, head, w/o contr ast No observ ation record ed. [id number] [facility] [address] [place] [address], [place], [address], 11/28/2022 17:12:57 06/29/20 22 CT, head, w/o contr ast [facility] [address] [place] [address] Lena t Name: CHAD MCCOLLUM Access ion #: [id number] Sex: F : 1974 3 Locati on: RA2 Attend ing Physic moncho: PATRICIA HANSEN Physic moncho: PATRICIA HANSEN Exam Date: 7:57 AM Exam Name: CT HEAD WO Admitt ing Diagno sis(es ): RADIOL OGY REPORT - FINAL EXAM: CT HEAD WO HISTOR Y: Headac he 46-yea r-old female with headac he, nausea , histor y of migrai ne headac hes. COMPAR ABBEY: None availa ble. TECHNI QUE: Noncon trast axial CT images of the head were perfor med. Sagitt al and burgess l reform atted images were obtain ed. This CT exam was perfor med using 1 or more of the follow ing dose reduct ion techni ques: Automa arun exposu re contro l, adjust ment of the mA and/or kv accord ing to patien t size, or the use of iterat alessandro recons tructi on techni ques. FINDIN GS: No intrac ranial hemorr mervin, mass, midlin e shift, hydroc ephalu s, or eviden ce Page 1 of 2 [facility] Patien t Name: CHAD MCCOLLUM Access ion #: [id number] Sex: F : 1974 3 Exam Date: 7:57 AM Exam Name: CT HEAD WO Admitt ing Diagno sis(es ): of acute large vessel infarc t. There is a small right maxill fabiola sinus mucous retent ion cyst. The bilate ral mastoi d air cells and middle ear spaces are clear. No crania l fractu re or scalp edema. IMPRES GILMA: 1. No acute intrac ranial proces s. 2. Mild right maxill fabiola sinus diseas e. Create d and electr onical ly signed by: Vincent gill MD Signed Date: 8:31 AM (CT) Dictat ed by: Vincent gill MD DD: 8:31 AM (CT) DT: 8:31 AM (CT) Page 2 of 2 [id number] [facility] (Imaging) [address] [place], [address], 11/28/2022 17:12:57 07/19/20 22 07/19/2022 MAMMO , scree lilliana, digit al, bilat eral No observ ation record ed. [id number] [facility] [address] [facility] [address], [place], [address], 11/28/2022 17:12:57 Result Notes None recorded. Problems Name Problem SNOMED Code Status Onset Date Resolution Date Notes Provider Name and Address Organization Details Recorded Time Anemia 536260144 Active 2020 Not Available [facility] 3 17:12:14 Vitamin D deficiency 43812544 Active 2021 Not Available [facility] 3 17:12:15 Migraine 56802371 Active 2021 Not Available [facility] 3 17:12:15 Obesity 107671519 Active 2021 Not Available [facility] 3 17:12:15 Anxiety 15909695 Active 2020 Not Available [facility] 3 17:12:15 Allergic rhinitis 50213692 Active 2022 Not Available [facility] 3 17:12:15 Insulin resistance 289257278 Active 2021 Not Available [facility] 3 17:12:15 Iron deficiency anemia 82889707 Active 2022 Not Available [facility] 3 17:12:15 Episodic migraine 5912076920050 06 Active 2022 Kala Baeza NP [address] [facility] [address], [place], [address] , [facility] [employer] [facility] 3 12:55:30 Problem Notes None recorded. Procedures Surgical History Date Name Laterality Status Provider Name and Address Organization Details Recorded Time Tonsillectomy completed Not Available [facility] 11/28/2022 17:11:55 Appendectomy completed Not Available [facility] 11/28/2022 17:11:55 Cholecystectomy completed Not Available [facility] 11/28/2022 17:11:55 other completed Not Available [facility] 09/2022 17:11:55 other completed Not Available [facility] 09/2022 17:11:55 completed Not Available [facility] 0 11/28/2022 17:11:55 Imaging Results Imaging Date Name Status LastModified by Organiz ation Details LastModified Time 07/15/2021 imaging/diagno stic result completed [id number] [address], [place], [address], 11/28/2022 17:12:57 07/19/2022 MAMMO, screening, digital, bilateral completed [id number] [address], [place], [address], 11/28/2022 17:12:57 06/29/2022 CT, head, w/o contrast completed [id number] 026 [facility] [address] [place] [address], [place], [address], 11/28/2022 17:12:57 06/29/2022 CT, head, w/o contrast completed [id number] 026 [facility] (Imaging) [address] [place], [address], 11/28/2022 17:12:57 Procedure Notes None recorded. Medical Equipment None Reported. Allergies Allergen ID Allergen Name Allergen Category Reaction Reaction Severity Criticality Documentation Date Start Date Code Code System Note Provider Name and Address Organization Details Recorded Time 12324 Product containin g penicilli n and antibioti c (product) medicatio n Not available Not available Not available 11/28/2022 96674 05 SNOMED Not Available [facility] 17:12:56 48166 Cipro medicatio n Not available Not available Not available 11/28/202279345 3 RxNorm Not Available [facility] 17:12:56 Medications Name Sig Start Date Stop Date Status Note LastModified by Organization Details LastModified Time prednisone 10 mg tablet TAKE 2 TABLETS BY MOUTH TWICE DAILY FOR 5 DAYS THEN TAKE 2 TABLETS BY MOUTH DAILY FOR 3 DAYS THEN TAKE 1 TABLET BY MOUTH DAILY FOR 3 DAYS 10/23 completed Not Available Not Available Not Available doxycycline hyclate 100 mg capsule Take 1 capsule twice a day by oral route for 10 days. active Not Available Not Available No t Available azithromyci n 250 mg tablet TAKE 2 TABLETS BY MOUTH FOR 1 DAY THEN TAKE 1 TABLET BY MOUTH DAILY FOR 4 DAYS 07/12 completed Not Available Not Available Not Available famotidine 40 mg tablet active Not Available Not Available Not Available prednisone 20 mg tablet TAKE 2 TABLETS BY MOUTH ONCE DAILY 02/07 completed Not Available Not Available Not Available sertraline 100 mg tablet TAKE 1 TABLET DAILY active Not Available Not Available No t Available phentermine 37.5 mg tablet Take 1 tablet every day by oral route for 30 days. active Not Available Not Available No t Available doxycycline monohydrate 100 mg tablet 02/07 completed Not Available Not Available Not Available triamcinolo ne acetonide 0.1 % topical cream APPLY TOPICALLY TO THE AFFECTED AREA TWICE DAILY FOR 7 DAYS 02/07 completed Not Available Not Available Not Available doxycycline monohydrate 100 mg capsule 10/23 completed Not Available Not Available Not Available cyanocobala min (vit B-12) 1,000 mcg/mL injection solution Inject 1 mL every month by subcutane ous route. 02/07 completed Not Available Not Available Not Available Baby Aspirin 81 mg chewable tablet Chew 1 tablet every day by oral route. 10/23 completed Not Available Not Available Not Available ergocalcife rol (vitamin D2) 1,250 mcg (50,000 unit) capsule TAKE ONE CAPSULE BY MOUTH WEEKLY 10/23 completed Not Available Not Available Not Available cefuroxime axetil 500 mg tablet 10/23 completed Not Available Not Available Not Available methylpredn isolone 4 mg tablets in a dose pack FOLLOW PACKAGE DIRECTION S 10/23 completed Not Available Not Available Not Available hydrocodone 10 mg-chlorphe niramine 8 mg/5 mL oral susp extend.rel 12hr TAKE 5 ML BY MOUTH EVERY 12 HOURS NEEDED FOR COUGH FOR UP TO 5 DAYS 10/23 completed Not Available Not Available Not Available albuterol sulfate HFA 90 mcg/actuati on aerosol inhaler INHALE 2 PUFFS BY MOUTH EVERY 4 HOURS NEEDED FOR WHEEZING active Not Available Not Available No t Available fluticasone propionate 50 mcg/actuati on nasal spray,suspe nsion SHAKE LIQUID AND USE 2 SPRAYS IN EACH NOSTRIL DAILY active Not Available Not Available No t Available sertraline 50 mg tablet Take 1 tablet every day by oral route. 02/07 completed Not Available Not Available Not Available Claritin 10/23 completed Not Available Not Available Not Available [facility] 2022 active Not Available Not Available Not Avai lable Arlettec ODT 75 mg disintegrat ing tablet active Not Available Not Available N ot Available BinaxNOW COVID-19 Ag Self Test kit TEST DIRECTED TODAY 10/23 completed Not Available Not Available Not Available Wegovy 2.4 mg/0.75 mL subcutaneou s pen injector Inject 0.75 mL every week by subcutane ous route. 02/07 completed Not Available Not Available Not Available Wegovy 1.7 mg/0.75 mL subcutaneou s pen injector Inject 1.7 mg every week by subcutane ous route. 02/07 completed Not Available Not Available Not Available Ozempic 2 mg/dose (8 mg/3 mL) subcutaneou s pen injector INJECT 2 MG UNDER THE SKIN EVERY WEEK active Not Available Not Available No t Available Vitals Date Recorded Body mass index (BMI) Body mass index (BMI) Body mass index (BMI) Body mass index (BMI) Body mass index (BMI) Body height Body height Body height Body height Body height Oxygen saturation Oxygen saturation in Arterial blood by Pulse oximetry Oxygen saturation Oxygen saturation in Arterial blood by Pulse oximetry Oxygen saturation Oxygen saturation in Arterial blood by Pulse oximetry Oxygen saturation Oxygen saturation in Arterial blood by Pulse oximetry Oxygen saturation Oxygen saturation in Arterial blood by Pulse oximetry Heart rate Heart rate Heart rate Heart rate Heart rate Respiratory rate Body temperature Body temperature Body temperature Body temperature Body temperature Body weight Body weight Body weight Body weight Body weight Systolic blood pressure Diastolic blood pressure Systolic blood pressure Diastolic blood pressure Systolic blood pressure Diastolic blood pressure Systolic blood pressure Diastolic blood pressure Systolic blood pressure Diastolic blood pressure Provider Name and Address Organization Details Last Updated DateTime 48.6 kg/m2 46.5 kg/m2 43.3 kg/m2 41.2 kg/m2 40.2 kg/m2 162.56 cm 162.56 cm 162.56 cm 162.56 cm 162.56 cm 98 % 98 % 99 % 99 % 98 % 98 % 99 % 99 % 97 % 97 % 90 /min 73 /min 75 /min 70 /min 66 /min 12 /min 96.8 [degF] 97.3 [degF] 96.9 [degF] 97.3 [degF] 97.8 [degF] 183716. 64 g 351794. 53 g 845101. 28 g 459489. 17 g 745941. 61 g 122 mm[Hg] 80 mm[Hg] 122 mm[Hg] 84 mm[Hg] 126 mm[Hg] 84 mm[Hg] 124 mm[Hg] 82 mm[Hg] 129 mm[Hg] 92 mm[Hg] Not Available [facility] 17:12:04 Social History Question Answer Notes LastModified by Organizat ion Details LastModified Time Tobacco Smoking Status Never Smoker Not Available [facility] 11/28/2022 17:11:53 What Is Your Level Of Alcohol Consumption? Occasional [id number] Information not available 11/28/2022 What Is Your Level Of Caffeine Consumption? Moderate [id number].[id number] Information not available 11/28/2022 What Type Of Diet Are You Following? REGULAR [id number].[id number] 5295 Information not available 11/28/2022 What Is The Highest Grade Or Level Of School You Have Completed Or The Highest Degree You Have Received? BI05731-5 MIGRATION.341470 0481 Information not available 11/28/2022 What Is The Fluoride Status Of Your Home? Unknown MIGRATION.[id number] Information not available 11/28/2022 Are There Any Guns Present In Your Home? No [id number].[id number] Information not available 11/28/2022 Do You Use Insect Repellent Routinely? No [id number].[id number] 6913 Information not available 11/28/2022 Where Do You Live? [place]House MIGRATION.[id number] 2568 Information not available 11/28/2022 Do You Have Any Pets? No MIGRATION.831243 3897 Information not available 11/28/2022 What Is Your Relationship Status? Single MIGRATION.[id number] 4101 Information not available 11/28/2022 Do You Have Smoke And Carbon Monoxide Detectors In Your Home? Yes MIGRATION.977090 4499 Information not available 11/28/2022 Are You Passively Exposed To Smoke? No MIGRATION.186940 8006 Information not available 11/28/2022 Are There Any Smokers In Your House? No MIGRATION.291558 1948 Information not available 11/28/2022 Do You Feel Stressed (tense, Restless, Nervous, Or Anxious, Or Unable To Sleep At Night)? CF0638-0 MIGRATION.256784 5298 Information not available 11/28/2022 Do You Use Any Illicit Or Recreational Drugs? No MIGRATION.245056 4421 Information not available 11/28/2022 Do You Use Sunscreen Routinely? Yes MIGRATION.390506 5842 Information not available 11/28/2022 Are You Currently In School? No MIGRATION.134257 5658 Information not available 11/28/2022 Do You Have Any Dietary Restrictions? No MIGRATION.289214 7129 Information not available 11/28/2022 Do You Or Have You Ever Used Any Other Forms Of Tobacco Or Nicotine? No MIGRATION.633011 4230 Information not available 11/28/2022 Sex: Female Functional Status Question Answer Note LastModified by [employer] Details LastModified Time What is your exercise level? Moderate [id number] Information not available 11/28/2022 Mental Status None recorded. Family History Relationship Description Onset Age of this Age Resolved Age Notes LastModified by Organization Details LastModified Time Father Hypertensive disorder [id number] Not available 11/28/2022 17:11:55 Father Celiac disease polyps [id number] Not available 11/28/2022 17:11:55 Father Carcinoma of prostate MIGRATION.842 [id number] Not available 11/28/2022 17:11:55 Brother Hypertensive disorder [id number] Not available 11/28/2022 17:11:55 Mother Mitral valve prolapse [id number] Not available 11/28/2022 17:11:55 Mother Raynaud's disease [id number] Not available 11/28/2022 17:11:55 Medical History Condition Response BLINDNESS N RHEUMATIC FEVER N KIDNEY STONES N BLADDER PROBLEMS N MRSA N OTHER # 1 N POLIO N LUNG DISEASE/DISORDER N HISTORY OF DRUG ABUSE N RADIATION / CHEMOTHERAPY N COPD N Other # 2 N BLOOD DISEASES N SURGERY N EAR OR HEARING PROBLEMS N MUMPS N SHINGLES N FEMALE PROBLEMS / INFECTIONS N DEPRESSION (INCLUDING POST ) N BOWEL PROBLEMS N STROKE/TIA N THYROID DISEASE N ULCERS N BENIGN PROSTATIC HYPERPLASIA N MEASLES N CERVICALGIA N TB SKIN TEST N HYPOTENSION N MYOCARDIAL INFARCTION N PARAPELGIA N OBESITY N GERD/NAUSEA N ANEURYSM N URINARY/BLADDER/KIDNEY PROBLEMS N CORONARY ARTERY DISEASE (CAD) N MENIERE'S DISEASE N ADDICTION CONCERNS N ENDOMETRIOSIS N USE OF BLOOD THINNERS N SKIN PROBLEMS N EMPHYSEMA N GASTROINTESTINAL DISORDER N MUSCLE,JOINT OR BONE PROBLEMS N GASTROINTESTINAL BLEEDING N BLOOD CLOTS N ASTHMA N CATARACTS N ERECTILE DYSFUNCTION N GI PROBLEMS N CHF N Low Testosterone N NEUROPATHY N INFERTILITY N AIDS/HIV N FRACTURES N CHEMOTHERAPY / RADIATION N VISION/EYE PROBLEMS N LIVER DISEASE N MALE HYPOGONADISM N HYPERTENSION N TOURETTE'S N ANXIETY DISORDER N BLOOD TRANSFUSION N ANEMIA/BLOOD DISORDER N CHRONIC EAR INFECTIONS N BRONCHITIS N TUBERCULOSIS N GLAUCOMA N FOOT PROBLEM N DIVERTICULITIS N SLEEP APNEA N CHICKENPOX N ALLERGIES/HAYFEVER N INFECTIOUS DISEASE N PROSTATE N HEART ARRHYTHMIA N INSOMNIA N HIGH CHOLESTEROL / HYPERLIPIDEMIA N HYPERTHYROIDISM N EYE PROBLEMS N EATING DISORDER N EDEMA N CHRONIC PAIN SYNDROME N CONSTIPATION N CAROTID BLOCKAGE N BACK / NECK PROBLEMS N HAVE YOU BEEN HOSPITALIZED OR SEEN IN [place] IN THE PAST YEAR ? Y ATHEROSCLEROSIS N BREAST PROBLEMS N DIALYSIS N ECZEMA N FIBROMYALGIA N OSTEOPOROSIS N ARTHRITIS N NO SIGNIFICANT PAST MEDICAL HISTORY N APPENDICITIS N DIABETES, TYPE N BAD TEETH N HEARTBURN / REFLUX N ADD/ADHD N AUTISM SPECTRUM DISORDER (ASD) N HEPATITIS / LIVER DISEASE N PULMONARY DISEASE N GOUT N SLEEP DISORDER N ALZHEIMER'S DISEASE N PAIN N HERPES N DEMENTIA N SEIZURES/EPILEPSY N HEADACHES/MIGRAINES N VASCULAR DISEASE N PACEMAKER N DIZZINESS N KIDNEY DISEASE N HEART DISEASE/HEART PROBLEMS N SCARLET FEVER N MULTIPLE SCLEROSIS N MENTAL DISORDER/ILLNESS N DEVELOPMENTAL OR BEHAVIORAL DISORDERS N CARDIAC ARRHYTHMIA N CANCER: SPECIFY N PNEUMONIA N Gall Stones N ATRIAL FIBRILLATION N PULMONARY EMBOLISM N AUTOIMMUNE DISEASE N Gynecological History Statement/Question Response Duration of Flow (days) 4 Date of LMP 10/05/2022 Obstetrics History GPAL:G 0 P 0 0 0 1 Type Value Living 1 Immunizations Vaccine Type Date Status Note Provider Gerald gill and Address Organization Details Recorded Time COVID-19, mRNA, LNP-S, PF, 30 mcg/0.3 mL dose 11/29/2020 completed Not Available [facility] 17:12:55 COVID-19, mRNA, LNP-S, PF, 100 mcg/0.5mL dose or 50 mcg/0.25mL dose 11/09/2020 completed Not Available [facility] 17:12:55 Past Encounters Encounter ID Performer Location Encounter Start Date Encounter Closed Date Diagnosis/Indication Diagnosis SNOMED-CT Code Diagnosis ICD10 Code Diagnosis Note [id number] [facility] [place] [address] [facility] [address] , [place] [address] 06/13/2021 00:00:00 06/13/2021 13:48:23 [id number] [facility] [place] [place] [address] [place] [address] [place] [address] 07/12/2021 00:00:00 07/12/2021 11:02:03 [id number] [facility] [place] [place] [address] [place] [address] [place] [address] 02/07/2022 00:00:00 02/09/2022 08:39:56 [id number] [facility] [place] [address] [place] [address] [place] [address] 05/10/2022 00:00:00 05/10/2022 11:20:00 [id number] [address] [place] [address] 10/23/2022 00:00:00 10/23/2022 08:53:10 Health Concerns Section Related Observation LastModified by Organization Detai ls LastModified Time None Recorded Concern Status LastModified by Organization Details LastModified Time None Recorded Advance Directives Directive None Recorded Payers None recorded. OBGyn Episode No OBEpisode recorded.
--- OUTSIDE RECORDS SUMMARY | 2024-11-06 08:01 | XMS_ITS | Clinical Summary ---
Author Organization [facility] Address [address] [place] [address] [place] [address] Care Team Providers Care Marketing Administrator Name Role Phone Kunal Sims MD Primary Care Provider [phone] Allergies Active Allergy Reactions Criticality Noted Date Comments Penicillins Hives High 04/18/2018 Medications sertraline (ZOLOFT) 50 mg tablet Take 50 mg by mouth daily. Active Active Problems Problem Noted Date Diagnosed Date Lump of right breast 04/18/2018 Morbid obesity with body mass index of 40.0-49.9 04/18/2018 Social History Tobacco Use Types Packs/Day Years Used Date Smoking Tobacco: Never Smokeless Tobacco: Never Alcohol Use Standard Drinks/Week Comments Yes 1 (1 standard drink = 0.6 oz pur e alcohol) occasionally Comments No Sex and Gender Information Value Date Recorded Sex Assigned at Not on file Legal Sex Female 2:35 PM CDT Gender Identity Not on file Sexual Orientation Not on file Last Filed Vital Signs Vital Sign Reading Time Taken Comments Blood Pressure 138/95 04/18/2018 9:22 AM CDT Pulse 80 04/18/2018 9:22 AM CDT Temperature 36.6 C (97.8 F) 04/18/2018 9:22 AM CDT Respiratory Rate - - Oxygen Saturation 98% 04/18/2018 9:22 AM CDT Inhaled Oxygen Concentration - - Weight 128.7 kg (283 lb 12.8 oz) 04/18/2018 9:22 AM CDT Height 162.6 cm (5' 4 ) 04/18/2018 9:22 AM CDT Body Mass Index 48.71 04/18/2018 9:22 AM CDT Plan of Treatment Health Maintenance Due Date Last Done Comments DTAP/TDAP/TD VACCINES (1 - Tdap) 1996 HEPATITIS B VACCINES (1 of 3 - 19+ 3-dose series) 09/01 CERVICAL CANCER SCREENING 2007 BREAST CANCER SCREENING 01/20/2019 01/20/2018 COLORECTAL SCREENING 2022 Colorectal Cancer Screening 2022 FIT-DNA Q 3 years 2022 FIT/FOBT Q 1 year 2022 Flex Sig/CT Colonography Q 5 years 2022 INFLUENZA VACCINE (#1) 2024 Procedures Procedure Name Priority Date/Time Associated Diagnosis Comments MAMMO 3D EVE DIAGNOSTIC EMMANUELLE AT W OR WO CAD Routine 01/20/2018 from Last 3 Months or Most Recently Relevant to Health Maintenance Results * MAMMO DIAG BILAT 3D EVE W OR WO CAD (01/20/2018) Anatomical Region Laterality Modality Breast Bilateral Other us Abstract Provider MAMMO ORDERABLES Final Result from Last 3 Months or Most Recently Relevant to Health Maintenance Care Teams Marketing Administrator Relationship Specialty Start Date End Date Kunal Sims MD PCP - General Internal Medicine 04/18/18
--- OUTSIDE RECORDS SUMMARY | 2024-11-06 08:01 | XMS_ITS | Data Portability ---
Author Organization [facility] [place] Address [address] [place] [address] Care Team Providers Care Size Marker Name Role Phone TRE SHEPARD Primary Care Provider PATRICIA VACA Primary Care Provider [phone] Assessment Encounter Date Assessment Date Assessment LastModified by Organization Details LastModified Time 05/28/2020 05/28/2020 Annual gynecological exam performed. Patient will come back in a year unless there are new symptoms. [email or web address] Not available 05/28/2020 12:00:59 05/31/2021 05/31/2021 Annual gynecological exam performed. Patient will come back in a year unless there are new symptoms. Not available 05/31/2021 10:18:52 06/06/2022 06/06/2022 Annual gynecological exam performed. Patient will come back in a year unless there are new symptoms. [email or web address] Not available 06/06/2022 09:48:11 07/19/2023 07/19/2023 Annual gynecological exam performed. Patient will come back in a year unless there are new symptoms. [email or web address] Not available 07/19/2023 09:16:01 08/17/2024 08/17/2024 Annual gynecological exam performed. Patient will come back in a year unless there are new symptoms. [email or web address] Not available 08/12/2024 10:52:46 Plan of Treatment Reminders Order Date Submit Date Provider Last Modified By Organization Details Last Modified Time Details Appointments None recorded. Lab pap, IG + HR HPV - HPV regardless but if HPV is positive need subtyping 16,18/45Add CT/GC/Trich 11/18/ 2024 11/18/2 024 [facility] (Lab), [address], [place], [address], 4 10:09:42 Referral None recorded. Procedures None recorded. Surgeries None recorded. Imaging MAMMO, diagnostic, digital, bilateral 2019 020 [facility], [address], [place], [address], 0 19:38:38 US, breast, unilateral 2019 020 [facility], [address], [place], [address], 1 05:02:42 MAMMO, screening, bilateral [address] [facility], [address], [place], [address], 4 16:16:26 MAMMO, screening, digital, bilateral [address] [facility], [address], [address], [place], [address], 4 04:02:21 Medication Orders None recorded. Patient TargetsNo targets recorded. Patient Instructions Encounter Date Encounter Id Patient Instructions Last Modified By Organization Details Last Modified Time 05/28/2020 [id number] [email or web address] Not available 12:29:04 Reason for Referral None Reported. Results Created Date Observation Date Name Description Value Unit Range Abnormal Flag Note LastModifiedBy Organization Detail LastModifiedTime 05/30/20 20 06/01/2020 pap, LB Pap test thin prep Negati ve for Intrae pithel ial Lesion or Malign lashay normal ACCES DARIO #: [id number] Sourc e: Cervi tony/E ndoce rvica l LMP: 020 Date Taken : 05/30 Speci men Type: ThinP rep Vial Date Repor arun: Clini tony Data: Cytot ech: Mandy Santiago brice CT( CP) Date Repor arun: Speci men Adequ acy: Satis facto ry for evalu ation Endoc ervic al/tr ansfo rmati on zone compo nent prese nt Gener al Categ oriza tion: NEGAT ALESSANDRO FOR INTRA EPITH ELIAL LESIO N OR MALIG GABBI The follo wing tests have been order ed as reque sted and a separ ate repor t will be issue d: Chlam ydia, Gonor rhoea e, and Trich omona s This speci men has been mario zed by the ThinP rep Imagi ng Syste m, an inter activ e compu ter syste m which howard ts the lab in the scree lilliana of ThinP rep Pap Test slide s. Follo wing imagi ng, the slide was revie wed by a Cytot echno logis t and/o r Patho logis t. D N A A S S A Y S R E P O R T TEST NAME RESUL TS ----- ---- ----- -- HPV High Risk Scree n (TMA) ThinP rep Vial The human papil lomav irus (HPV) High Risk Scree n is an FDA-a pprov ed in-vi tro ampli fied nucle ic acid test for the quali tativ e detec tion of E6/E7 viral mRNA. Resul ts shoul d be corre lated with patie nt prese ntati on, histo ry, cervi tony cytol ogy and other clini tony and labor atory findi ngs. See https ://Motivano/s ites/ defau lt/fi les/2 018-0 3/AW- 95453 _002_ 01.pd f for furth er infor matio n. Test perfo rmed by [facility], d/b/a [facility], [address], [place] [address] , Blanca Jackson ra, DO, Labor atory Direc tor. HPV High Risk *HPV NOT DETEC ARUN (TYPE S 16, 18, 31, 33, 35, 39, 45, 51, 52, 56, 58, 59, 66, 68) *HPV: The human papil lomav irus (HPV) High Risk Juan Alberto ding is an FDA-a pprov ed in-vi tro ampli fied nucle ic acid test for the quali tativ e detec tion of E6/E7 viral mRNA. Resul ts shoul d be corre lated with patie nt prese ntati on, histo ry, cervi tony cytol ogy and other clini tony and labor atory findi ngs. See https ://Motivano/s ites/ defau lt/fi les/2 018-0 3/AW- 95771 _002_ 01.pd f for popeye marcelo infor cale ding. Test perfo rmed by [facility] [facility], d/b/a [facility], [address], [place] [address] , Blanca Jackson ra, DO, [facility] [email or web address] Dire tor. End of t Techn ical servi al provi ded by [employer] [facility] [employer], d/b/a [facility], [address] [place] [address] Peña Carranza MD, [facility]. Case revie wed and diagn osis rende red at [facility], d/b/a [facility], [address] [place] [address] Peña Carranza MD, [facility]. CONFI DENTI AL Not Available [facility] ([facility]) [address], [place], [address], 06/01/2020 11:42:58 05/30/20 20 06/01/2020 CT + NG DNA, PCR, unspe cifie d speci men trichomonas vaginalis, aptima (panther) NOT DETECT ED normal DNA testi ng perfo rmed by Trans cript ion Media arun Ampli ficat ion (TMA) These resul ts shoul d be inter prete d in light of all clini tony and labor atory findi ngs. This assay is highl y accur ate, but rare false posit alessandro and negat alessandro resul ts may occur . Posit alessandro resul ts in low preva lence popul ation s may requi re re-ev aluat ion. A negat alessandro resul t does not precl ude a possi ble infec tion due to a speci men inade quacy or sampl ing error . Test perfo rmed by [facility] [employer], [facility], d/b/a [facility]il[facility], [address], [place] [address] , Blanca Jackson ra, DO, Labor atory Direc tor. Not Available [facility] ([facility]) [facility] [facility] [address], [place], [address], 06/01/2020 11:42:59 05/30/20 20 06/01/2020 CT + NG DNA, PCR, unspe cifie d speci men neisseria gonorrhoeae, aptima NOT DETECT ED normal DNA testi ng perfo rmed by Trans cript ion Media arun Ampli ficat ion (TMA) These resul ts shoul d be inter prete d in light of all clini tony and labor atory findi ngs. This assay is highl y accur ate, but rare false posit alessandro and negat alessandro resul ts may occur . Posit alessandro resul ts in low preva lence popul ation s may requi re re-ev aluat ion. A negat alessandro resul t does not precl ude a possi ble infec tion due to a speci men inade quacy or sampl ing error . Test perfo rmed by [facility] [employer], [facility], d/b/a Ke[facility]an rou[facility]ilson, [address], [place] [address] , Blanca Jackson ra, DO, Labor atory Direc tor. Not Available [facility] ([facility]) [address], [place], [address], 06/01/2020 11:42:59 05/30/20 20 06/01/2020 CT + NG DNA, PCR, unspe cifie d speci men chlamydia trachomatis, aptima NOT DETECT ED normal DNA testi ng perfo rmed by Trans cript ion Media arun Ampli ficat ion (TMA) These resul ts shoul d be inter prete d in light of all clini tony and labor atory findi ngs. This assay is highl y accur ate, but rare false posit alessandro and negat alessadnro resul ts may occur . Posit alessandro resul ts in low preva lence popul ation s may requi re re-ev aluat ion. A negat alessandro resul t does not precl ude a possi ble infec tion due to a speci men inade quacy or sampl ing error . Test perfo rmed by [employer] d/b/a [facility]le[facility], [address], [place] [address] , Blanca Jackson ra, DO, Labor atory Dire tor. Not Available [facility] ([facility]) [address], [place], [address], 06/01/2020 11:42:59 05/30/20 20 06/01/2020 HPV DNA, high- risk HPV high risk NOT DETECT ED normal The human papil lomav irus (HPV) High Risk Juan Alberto ding is an FDA-a pprov ed in-vi tro ampli fied nucle ic acid test for the quali tativ e detec tion of E6/E7 viral mRNA. Resul ts shoul d be corre lated with patie nt prese ntati on, histo ry, cervi tony cytol ogy and other clini tony and labor atory findi ngs. See https ://[employer]. La Miu/s ites/ defau lt/fi les/2 018-0 3/AW- 53775 _002_ 01.pd f for popeye sanfordr cale ding. Test perfo rmed by [facility], d/b/a [facility], [address], [place] [address] , Blanca Jackson ra, DO, Labor [facility]. 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 Order ing Locat ion: [place] Patho logy Recei hanna: 06/01 0751 First Scree n: Andrei Esparza , CT Speci men: Scree lilliana Pap - Image d, Cervi x STATE MENT OF ADEQU ACY: Satis facto ry for evalu ation Trans forma tion zone compo nent prese nt FINAL DIAGN OSIS: Negat alessandro for Intra epith elial Leonard ding or Matti sanches (NIL) Elect devonte pineda jermain d by Andrei Esparza , CT on 021 at 4:19 PM ----- ----- ----- ----- ----- ----- ----- ----- ----- ----- ----- ----- ----- ----- ----- ----- ----- ---- HPV RESUL TS: HPV mRNA E6/E7 : No HPV mRNA Detec arun NOTE: This high risk HPV mRNA assay detec ts fourt een high- risk HPV types (16, 18, 31, 33, 35, 39, 45, 51, 52, 56, 58, 59, 66, 68) witho ut diffe renti ation . COMME NT: Note: This speci men was revie wed by a Cytot echno logis t and/o r Patho logis t (as indic ated in this repor t) after evalu ation using the Thinp rep Imagi ng Syste m. CLINI TONY INFOR MATIO N: Menst rual Statu s: LMP (if appli cable ): Clini tony Histo ry/Pr eviou s Pap: Type of Neopl fiordaliza (if appli cable ): Signi fican t Clini tony Findi ngs: Other Histo ry: Hormo tammie (if appli cable ): PAP EDUCA CALVIN L NOTE: The Pap Test is a scree lilliana test with an inher ent false negat alessandro rate. Liqui d-bas e sampl ing may decre ase, but will not elimi mitesh, false negat alessandro resul ts. A negat alessandro resul t does not precl ude the prese nce and/o r devel opmen t of disea se, since the prese nce of abnor mal cells in the sampl e depen ds on the locat ion of the lesio n and sampl ing techn ique. John nued regul ar scree lilliana is the best metho d of cance r preve ntion . If repor arun cytol ogic findi ng do not corre late with physi tony and/o r histo rical findi ngs, furth er inves tigat ion is recom karen d, as clini teressa langford nted. Not Available [facility] (Lab) [address] , [place], [address], 06/03/2021 17:22:34 05/31/20 21 05/31/2021 TRICH OMONA S VAGIN CLAU (RRNA ) trichomonas vaginalis ribosomal RNA (rrna) Negati ve negati ve Not Available [facility] (Lab) [address], [place], [address], 06/03/2021 17:22:35 05/31/20 21 05/31/2021 CT/GC (ROM) , THINP REP VIAL chlamydia trachomatis, PCR Negati ve negati ve Not Available [facility] (Lab) [address], [place], [address], 06/03/2021 17:22:35 05/31/20 21 05/31/2021 CT/GC (ROM) , THINP REP VIAL neisseria gonorrhoeae, PCR Negati ve negati ve Not Available [facility] (Lab) [address], [place], [address], 06/03/2021 17:22:35 06/06/20 22 06/06/2022 IMAGE GUIDE D PAP AND HPV REGAR DLESS image guided Pap, HPV regardless of Pap result SEE RESULT S BELOW CASE REPOR T: Cytol ogy Gynec ologi tony Repor t Case: [id number] Autho jame celis Provi ajith: Anuel Lo Colle cted: 06/06 1626 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 Fabricio pineda jermain d by Edgard Flynn am, CT on 2021 at 1:03 PM ----- ----- ----- ----- ----- ----- ----- ----- ----- ----- ----- ----- ----- ----- ----- ----- ----- ---- HPV RESUL TS: HPV mRNA E6/E7 : No HPV mRNA Detec arun NOTE: This high risk HPV mRNA assay detec ts fourt een high- risk HPV types (16, 18, 31, 33, 35, 39, 45, 51, 52, 56, 58, 59, 66, 68) witho ut diffe renti ation . COMME NT: Note: This speci men was revie wed by a Cytot echno logis t and/o r Patho logis t (as indic ated in this repor t) after evalu ation using the Thinp rep Imagi ng Syste m. CLINI TONY INFOR MATIO N: Menst rual Statu s: LMP (if appli cable ): Clini tony Histo ry/Pr eviou s Pap: Type of Neopl fiordaliza (if appli cable ): Signi fican t Clini tony Findi ngs: Other Histo ry: Hormo tammie (if appli cable ): PAP EDUCA CALVIN L NOTE: The Pap Test is a scree lilliana test with an inher ent false negat alessandro rate. Liqui d-bas ed sampl ing may decre ase, but will not elimi mitesh, false negat alessandro resul ts. A negat alessandro resul t does not precl ude the prese nce and/o r devel opmen t of disea se, since the prese nce of abnor mal cells in the sampl e depen ds on the locat ion of the lesio n and sampl ing techn ique. John nued regul ar scree lilliana is the best metho d of cance r preve ntion . If repor arun cytol ogic findi ng do not corre late with physi toyn and/o r histo rical findi ngs, furth er inves tigat ion is recom karen d, as clini teressa langford nted. Not Available [facility] [address] [place], [address], 06/12/2022 14:06:04 06/06/20 22 06/06/2022 TRICH OMONA S VAGIN CLAU (RRNA ) trichomonas vaginalis ribosomal RNA (rrna) NEGATI VE negati ve Not Available [facility] [address] [place], [address], 06/12/2022 14:06:05 06/06/20 22 06/06/2022 CT/GC (ROM) , THINP REP VIAL chlamydia trachomatis, PCR NEGATI VE negati ve Not Available [facility] [address], [place], [address], 06/12/2022 14:06:05 06/06/20 22 06/06/2022 CT/GC (ROM) , THINP REP VIAL neisseria gonorrhoeae, PCR NEGATI VE negati ve Not Available [facility] [address] [place], [address], 06/12/2022 14:06:05 07/19/20 23 07/19/2023 IMAGE GUIDE D PAP AND HPV REGAR DLESS image guided Pap, HPV regardless of Pap result SEE RESULT S BELOW CASE REPOR T: Cytol ogy Gynec ologi tony Repor t Case: [id number] Autho jame lalita Provi ajith: Anuel Lo Colle cted: 07/19 1451 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 Shift in liban sugge stive of bacte rial vagin osis. Elect devonte aly d by Scot farah, Zachariah de la cruz, CT on 07/24 at 8:24 PM ----- ----- ----- ----- ----- ----- ----- ----- ----- ----- ----- ----- ----- ----- ----- ----- ----- ---- HPV RESUL TS: HPV mRNA E6/E7 : No HPV mRNA Detec arun NOTE: This high risk HPV mRNA assay detec ts fourt een high- risk HPV types (16, 18, 31, 33, 35, 39, 45, 51, 52, 56, 58, 59, 66, 68) witho ut diffe renti ation . COMME NT: This speci men was revie wed by a Cytot echno logis t and/o r Patho logis t (as indic ated in this repor t) after evalu ation using the Thinp rep Imagi ng Syste m. CLINI TONY INFOR MATIO N: Menst rual Statu s: LMP (if appli cable ): Clini tony Histo ry/Pr eviou s Pap: Type of Neopl fiordaliza (if appli cable ): Signi fican t Clini tony Findi ngs: Other Histo ry: Hormo tammie (if appli cable ): PAP EDUCA CALVIN L NOTE: The Pap Test is a scree lilliana test with an inher ent false negat alessandro rate. Liqui d-bas ed sampl ing may decre ase, but will not elimi mitesh, false negat alessandro resul ts. A negat alessandro resul t does not precl ude the prese nce and/o r devel opmen t of disea se, since the prese nce of abnor mal cells in the sampl e depen ds on the locat ion of the lesio n and sampl ing techn ique. John nued regul ar scree lilliana is the best metho d of cance r preve ntion . If repor arun cytol ogic findi ng do not corre late with physi tony and/o r histo rical findi ngs, furth er inves tigat ion is recom karen d, as clini etressa langford nted. Not Available [facility] (Lab) [address], [place], [address], 07/24/2023 21:27:48 07/19/20 23 07/19/2023 TRICH OMONA S VAGIN CLAU (RRNA ) trichomonas vaginalis ribosomal RNA (rrna) Negati ve negati ve Not Available [facility] (Lab) [address], [place], [address], 07/24/2023 21:27:49 07/19/20 23 07/19/2023 CT/GC (ROM) , THINP REP VIAL chlamydia trachomatis, PCR Negati ve negati ve Not Available [facility] (Lab) [address], [place], [address], 07/24/2023 21:27:49 07/19/20 23 07/19/2023 CT/GC (ROM) , THINP REP VIAL neisseria gonorrhoeae, PCR Negati ve negati ve Not Available [facility] (Lab) [address], [place], [address], 07/24/2023 21:27:49 08/17/20 24 08/17/2024 IMAGE GUIDE D PAP AND HPV REGAR DLESS image guided Pap, HPV regardless of Pap result SEE RESULT S BELOW CASE REPOR T: Cytol ogy Gynec ologi tony Repor t Case: [id number] Autho jame g Provi ajith: Dermo dy, Kendall , ANP, JAVA SQL DEVELOPER Colle cted: 08/17 1035 Order ing Locat ion: [place] Patho logy Recei hanna: 08/18 1244 First Scree n: Iliana Bruno, CT Speci men: Juan Alberto lilliana Pap - Image d, Cervi x STATE MENT OF ADEQU ACY: Satis facto ry for evalu ation Trans forma tion zone compo nent prese nt ----- ----- ----- ----- ----- ----- ----- ----- ----- ----- ----- ----- ----- ----- ----- ----- ----- ---- FINAL DIAGN OSIS: Negat alessandro for Intra epith elial Lesio n or Matti sanches (NIL) . Shift in liban sugge stive of bacte rial vagin osis. Elect devonte aly d by Iliana Bruno, CT on 08/26 at 9:05 AM ----- ----- ----- ----- ----- ----- ----- ----- ----- ----- ----- ----- ----- ----- ----- ----- ----- ---- HPV RESUL TS: HPV mRNA E6/E7 : No HPV mRNA Detec arun NOTE: This high risk HPV mRNA assay detec ts fourt een high- risk HPV types (16, 18, 31, 33, 35, 39, 45, 51, 52, 56, 58, 59, 66, 68) witho ut diffe renti ation . COMME NT: This speci men was revie wed by a Cytot echno logis t and/o r Patho logis t (as indic ated in this repor t) after evalu ation using the Thinp rep Imagi ng Syste m. CLINI TONY INFOR MATIO N: Menst rual Statu s: LMP (if appli cable ): Clini tony Histo ry/Pr eviou s Pap: Type of Neopl fiordaliza (if appli cable ): Signi fican t Clini tony Findi ngs: Other Histo ry: Hormo tammie (if appli cable ): PAP EDUCA CALVIN L NOTE: The Pap Test is a scree lilliana test with an inher ent false negat alessandro rate. Liqui d-bas ed sampl ing may decre ase, but will not elimi mitesh, false negat alessandro resul ts. A negat alessandro resul t does not precl ude the prese nce and/o r devel opmen t of disea se, since the prese nce of abnor mal cells in the sampl e depen ds on the locat ion of the lesio n and sampl ing techn ique. John nued regul ar scree lilliana is the best metho d of cance r preve ntion . If repor arun cytol ogic findi ng do not corre late with physi tony and/o r histo rical findi ngs, fur er inves tigat ion is recom karen d, as clini teressa langford nted. Not Available [facility] (Lab) [address], [place], [address], 08/26/2024 10:09:42 08/17/20 24 08/17/2024 TRICH OMONA S VAGIN CLAU (RRNA ) trichomonas vaginalis ribosomal RNA (rrna) Negati ve negati ve Not Available [facility] (Lab) [address], [place], [address], 08/26/2024 10:09:43 08/17/20 24 08/17/2024 CT/GC (ROM) , THINP REP VIAL chlamydia trachomatis, PCR Negati ve negati ve Not Available [facility] (Lab) [address], [place], [address], 08/26/2024 10:09:43 08/17/20 24 08/17/2024 CT/GC (ROM) , THINP REP VIAL neisseria gonorrhoeae, PCR Negati ve negati ve Not Available [facility] (Lab) [address], [place], [address], 08/26/2024 10:09:43 05/31/20 20 05/31/2020 MAMMO , diagn ostic , digit al, bilat eral No observ ation record ed. [facility] (Imaging) [address] [place] [address], [phone], 06/09/2020 10:51:38 07/20/20 21 MAMMO juan alberto, bilat eral No observ ation record ed. [facility] [address], [place], [address], 07/27/2021 08:34:18 08/15/20 22 MAMMO juan alberto, bilat eral No observ ation record ed. [address] [facility] [address], [place], [address], 07/19/2023 09:29:31 07/29/20 23 07/24/2023 imagi ng/di lenoraos tic resul t No observ ation record ed. [facility] [address], [place], [address], 08/06/2023 12:14:14 Result Notes None recorded. Problems Name Problem SNOMED Code Status Onset Date Resolution Date Notes Provider Name and Address Organization Details Recorded Time Antenata l ultrasou nd scan for slow growth 841571033 Completed 201405/30/2021 Antenata l screenin g for growth retardat ion using ultrason ics;Ramírez rded Elsewher e: No Locat ion: [facility] S ource: EHR Public Health Physician ruth: N Practi ce ID: [id number] David lable Time: 11:00:00 AM Josselyn [facility] 17:40:29 Primigra mahad [id number] Completed 201305/30/2021 Supervis ion of normal first pregnanc y;Record ed Elsewher e: No Locat ion: [facility] S ource: EHR Public Health Physician ruth: N Practi ce ID: [id number] David lable Time: 08:45:00 AM Josselyn Schulte [facility] 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 17:41:[address] Concept Completed 201605/30/2021 Encntr for agile test lead exam (general ) (routine ) w/o abn findings ;Recorde d Elsewher e: No Locat ion: [facility] S ource: EHR Public Health Physician ruth: N Practi ce ID: [id number] David lable Time: 03:00:00 PM Josselyn sanford [facility] 17:41:[address] Concept Completed 201705/30/2021 Encntr for general adult medical exam w/o abnormal findings ;Recorde d Elsewher e: No Locat ion: [facility] S ource: EHR Public Health Physician ruth: N Practi ce ID: [id number] Daivd lable Time: 08:00:00 AM Josselyn sanford [facility] 17:41:26 Insertio n of intraute rine contrace ptive device Completed 201101/13/2013 INSERTIO N OF IUD;Ramírez rded Elsewher e: No Locat ion: [facility] S ource: EHR Public Health Physician ruth: N Practi ce ID: 0001 David lable Time: 03:15:00 PM Not Available [facility] 0 17:10:07 Cellulit is [id number] Completed 201405/30/2021 Cellulit is and abscess of other specifie d sites;Pr actice ID: 0001 Josselyn Schulte [facility] 17:40:35 Postoper ative follow-u p visit Completed 201405/30/2021 Follow Up Surgery; Practice ID: 0001 Josselyn Schulte [facility] 17:41:08 Hyperten dario complica ting pregnanc y, childbir th and the [place]er[place] um [id number] Completed 201405/30/2021 HYPERTEN S POSTPART UM;Pract ice ID: 0001 Josselyn Schulte [facility] 17:40:50 Complica tion of obstetri tony surgical wound [id number] Completed 201405/30/2021 OB SURG COMP NEC-POST PAR;Prac maxwell ID: 0001 Josselyn sanford [facility] 17:40:37 Postpart um care Completed 201405/30/2021 Postpart um follow-u p;Practi ce ID: 0001 Josselyn Schulte [facility] 17:41:09 Human papillom avirus deoxyrib onucleic acid detected , high risk on cervical specimen [id number] Completed 201705/30/2021 Cervical high risk HPV DNA test positive ;Practic e ID: 0001 Josselyn Schulte [facility] 17:40:49 Screenin g for malignan t neoplasm of rectum Completed 201705/30/2021 Encounte r for screenin g for malignan t neoplasm of rectum;P ractice ID: 0001 Josselyn Schulte [facility] 17:41:23 Speciali zed medical examinat ion Completed 201205/30/2021 Routine gynecolo gical examinat ion;Prac maxwell ID: 0001 Josselyn Schulte [facility] 17:41:30 Screenin g for malignan t neoplasm of cervix Completed 201205/30/2021 Pap Smear;Pr actice ID: 0001 Josselyn Schulte [facility] 17:41:22 Reproduc tive care manageme nt Completed 201205/30/2021 Unspecif ied procreat alessandro manageme nt;Pract ice ID: 0001 Josselyn Schulte [facility] 17:41:18 Removal of intraute rine device Completed 201205/30/2021 REMOVAL OF IUD;Prac maxwell ID: 0001 Jossleyn Schulte [facility] 17:41:16 Female infertil ity associat ed with anovulat ion [id number] Completed 201205/30/2021 Infertil ity, female, associat ed with anovulat ion;Prac maxwell ID: 0001 Josselyn sanford, [facility] 17:40:42 Amenorrh ea [id number] Completed 201205/30/2021 AMENORRH EA;Pract ice ID: 0001 [facility] 17:40:26 Pregnanc y test positive [id number] Completed 201205/30/2021 Positive Pregnanc y Test;Pra ctice ID: 0001 Josselyn sanford, [facility] 17:41:13 Threaten ed miscarri age [id number] Completed 201205/30/2021 Threaten ed , antepart um;Pract ice ID: 0001 [facility] 17:41:31 Incomple te [id number] Completed 201205/30/2021 Spontane ous , incomple te, without mention of complica tion;Pra ctice ID: 0001 [facility] 17:40:54 Missed miscarri age [id number] Completed 201205/30/2021 Missed ;Practic e ID: 0001 Josselyn sanford, [facility] 17:41:01 Malaise and fatigue [id number] Completed 201305/30/2021 Fatigue And Malaise; Practice ID: 0001 Josselyn sanford, [facility] 17:40:58 Ultrason ography Completed 201405/30/2021 Antenata l screenin g for malforma tion using ultrason ics;Prac maxwell ID: 0001 [facility] 17:41:35 Antenata l screenin g Completed 201405/30/2021 Antenata l screenin g for malforma tion using ultrason ics;Prac maxwell ID: 0001 Josselyn sanford, [facility] 17:40:28 Congenit al malforma tion [id number] Completed 201405/30/2021 Antenata l screenin g for malforma tion using ultrason ics;Prac maxwell ID: 0001 Josselyn sanford [facility] 17:40:39 Morbid obesity [id number] Completed 201405/30/2021 Morbid obesity; Practice ID: 0001 Josselyn Schulte [facility] 17:41:04 Poor growth affectin g manageme nt [id number] Completed 201405/30/2021 GROWTH POOR SGA;Prac maxwell ID: 0001 Josselyn Schulte [facility] 17:41:06 Transien t hyperten dario of pregnanc y - not delivere d [id number] Completed 201405/30/2021 Antepart um transien t hyperten dario;Pra ctice ID: 0001 Josselyn Schulte [facility] 17:41:33 Routine antenata l care Completed 201405/30/2021 Supervis ion of other normal pregnanc y;Practi ce ID: 0001 Josselyn sanford [facility] 17:41:20 Breech presenta tion - delivere d [id number] Completed 201405/30/2021 Breech presenta tion without mention of version, delivere d;Practi ce ID: 0001 Josselyn sanford [facility] 17:40:32 Single live [id number] Completed 201405/30/2021 Mother with single liveborn ;Practic e ID: 0001 Josselyn sanford [facility] 08/31/202 1 17:41:25 Low grade squamous intraepi thelial lesion on cervical Papanico laou smear [id number] 105 Completed 201605/30/2021 Low grade intrepit h lesion cyto smr crvx (LGSIL); Recorded Elsewher e: No Locat ion: Crystal jairo [facility] S ource: EHR Public Health Physician ruth: N Practi ce ID: 0001 David lable Time: 02:27:03 PM Josselyn [facility] 17:40:55 Benign neoplasm of vulva [id number] Completed 201105/30/2021 Benign neoplasm of vulva;Re corded Elsewher e: No Locat ion: [facility] S ource: EHR Public Health Physician ruth: N Pamelati ce ID: 0001 David lable Time: 09:30:00 AM Josselyn [facility] 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 17:40:45 Depressi ve disorder [id number] Completed 201305/30/2021 Depressi on;Recor ded Elsewher e: No Locat ion: [facility] S ource: EHR Public Health Physician ruth: N Practi ce ID: 0001 David lable Time: 05:00:00 PM Josselyn [facility] 17:40:41 Removal of intraute rine device Completed 201101/13/2013 REMOVAL OF IUD;Ramírez rded Elsewher e: No Locat ion: [facility] S ource: EHR Public Health Physician ruth: N Practi ce ID: 0001 David lable Time: 03:45:00 PM Josselyn Schulte [facility] 1 17:41:16 Neoplasm of uncertai n behavior of skin [id number] Completed 201101/13/2013 Neoplasm of uncertai n behavior of skin;Rec orded Elsewher e: No [facility] S ource: EHR Public Health Physician ruth: N Practi ce ID: 0001 David lable Time: 03:30:00 PM Not Available [facility] 0 17:10:13 Pregnanc y test negative [id number] Completed 201101/13/2013 Pregnanc y examinat ion or test, negative result;R ecorded Elsewher e: No Locat ion: [facility] S ource: EHR Public Health Physician ruth: N Practi ce ID: 0001 David lable Time: 03:15:00 PM Josselyn Schulte [facility] 1 17:41:11 Family planning surveill ance Completed 201101/13/2013 Contrace ptive surveill ance, unspecif ied;Ramírez rded Elsewher e: No Locat ion: [facility] S ource: EHR Public Health Physician ruth: N Practi ce ID: 0001 David lable Time: 03:30:00 PM Not Available [facility] 0 17:10:14 anatomy study Completed 201405/30/2021 [facility];R ecorded Elsewher e: No Locat ion: [facility] S ource: EHR Public Health Physician ruth: N Practi ce ID: 0001 David lable Time: 08:15:00 AM Josselyn Schulte [facility] 1 17:40:44 Microsco pic hematuri a [id number] Completed 201305/30/2021 MICROSCO PIC HEMATURI A;Record ed Elsewher e: No Locat ion: [facility] jairo [facility] S ource: EHR Public Health Physician ruth: N Practi ce ID: 0001 David lable Time: 04:00:00 PM Josselyn Schulte [facility] 17:40:59 Screenin g for malignan t neoplasm of cervix Completed 201101/13/2013 Screenin g for malignan t neoplasm s of the cervix;R ecorded Elsewher e: No Locat ion: Shaylee gill [facility] S ource: EHR Public Health Physician ruth: N Practi ce ID: 0001 David lable Time: 02:00:00 PM Josselyn Schulte [facility] 17:41:22 Acute upper respirat ory infectio n [id number] Completed 201305/30/2021 URI;Ramírez rded Elsewher e: No Locat ion: Shaylee gill [facility] S ource: EHR Public Health Physician ruth: N Practi ce ID: 0001 David lable Time: 12:15:00 PM Josselyn Schulte [facility] 17:40:25 Acute sinusiti s [id number] Completed 201305/30/2021 Acute infectio n of sinus;Re corded Elsewher e: No [facility] S ource: EHR Public Health Physician ruth: N Practi ce ID: 0001 David lable Time: 09:15:00 AM Josselyn Schulte [facility] 17:40:22 Urinary tract infectio us disease [id number] Completed 201305/30/2021 Urinary Tract Infectio n;Record ed Elsewher e: No Locat ion: [facility] S ource: EHR Public Health Physician ruth: N Practi ce ID: 0001 David lable Time: 04:00:00 PM Josselyn Schulte [facility] 17:41:36 Speciali zed medical examinat ion Completed 201101/13/2013 Gynecolo gical Examinat ion;Ramírez rded Elsewher e: No Locat ion: Crystalll jairo [facility] S ource: EHR Public Health Physician ruth: N Practi ce ID: 0001 David lable Time: 02:00:00 PM Josselyn Schulte [facility] 17:41:30 Ill-defi stephanie intestin al infectio n Completed 201105/30/2021 No Show Fee;Prac maxwell ID: 0001 Josselyn Schulte [facility] 17:40:52 Pregnanc y test negative [id number] Completed 201105/30/2021 Negative Pregnanc y Test;Pra ctice ID: 0001 Josselyn Schulte [facility] 17:41:11 Carcinom a in situ of vulva [id number] Completed 201105/30/2021 CARCINOM A IN SITU VULVA;Pr actice ID: 0001 Josselyn Schulte [facility] 17:40:34 History of recurren t miscarri age - not delivere d [id number] Completed 201305/30/2021 Habitual aborter, antepart um conditio n or complica tion;Pra ctice ID: 0001 Josselyn Schulte [facility] 17:40:47 Problem Notes None recorded. Procedures Surgical History Date Name Laterality Status Provider Name and Address Organization Details Recorded Time 08/15/20 24 Date of Last Mammogram completed [facility] 08/17/2024 10:00:58 09/05/20 23 Date of Last Colonoscopy completed [facility] 08/17/2024 09:54:27 07/19/20 23 Date of Last Pap Smear completed [facility] 08/12/2024 10:52:04 09/30/19 23 perinasal sinusotomy completed Yasmine Xavier [facility] 07/19/2023 09:19:43 09/30/19 15 delivery completed [facility] 05/28/2020 22:45:00 09/30/19 13 Dilation and Curettage completed [facility] 05/28/2020 22:43:33 09/30/19 12 excision of vulval lesion completed [facility] 05/28/2020 22:43:16 07/31/19 93 appendectomy completed [facility] 05/28/2020 22:42:12 cholecystectomy completed [facility] 05/28/2020 22:42:21 tonsillectomy completed [facility] 05/28/2020 22:42:28 Imaging Results Imaging Date Name Status LastModified by Organiz ation Details LastModified Time 05/31/2020 MAMMO, diagnostic, digital, bilateral completed [facility] (Imaging) [address] [place] [address], [id number], 06/09/2020 10:51:38 07/20/2021 MAMMO, screening, bilateral completed [address], [phone], 07/27/2021 08:34:18 08/15/2022 MAMMO, screening, bilateral completed [address] [facility] [address] [place] [address], [phone], 07/19/2023 09:29:31 07/24/2023 imaging/diagno stic result completed [facility] [address], [place], [address], 08/06/2023 12:14:14 Procedure Notes None recorded. Medical Equipment None Reported. Allergies Allergen ID Allergen Name Allergen Category Reaction Reaction Severity Criticality Documentation Date Start Date Code Code System Note Provider Name and Address Organization Details Recorded Time 95158 ciproflox acin medicatio n Not available Not available Not available 09/16/2020 2551 RxNorm Comme nt: Locat ion: [facility] Cau sativ e Agent : Cipro ; Not Available [facility] 0 14:20:35 1868 Cipro medicatio n Not available Not available Not available 05/28/202068715 3 RxNorm Josselyn Schulte [facility] 1 10:20:01 186 Product containin g penicilli n and antibioti c (product) medicatio n Not available Not available Not available 05/28/2020 56991 05 SNOMED Verónica Liliya [facility] 0 12:14:05 Medications Name Sig Start Date Stop Date Status Note LastModified by Organization Details LastModified Time Prometriu m 200 mg capsule TAKE 1 CAPSULE BY ORAL ROUTE EVERY DAY 04/28 completed Prescrib ed Elsewher e: No Locat ion: [facility] jairo [facility] odify By: irving mireles DateTime : 08/09/20 14 11:19:35 AM Not Available Not Available Not Available Mirena 21 mcg/24 hr (up to 8 years) 52 mg intrauter ine device 03/11 completed Prescrib ed Elsewher e: No Locat ion: [facility] jairo [facility] odify By: jeffery montesinos DateTime : 02/20/20 12 09:00:00 AM Not Available Not Available Not Available Augmentin 875 mg-125 mg tablet take 1 tablet by oral route every 12 hours 12/28 completed Prescrib ed Elsewher e: No Locat ion: [facility] odify By: irving mireles DateTime : 09/20/20 14 08:55:22 AM Not Available Not Available Not Available prednison e 10 mg tablet TAKE 2 TABLETS BY MOUTH TWICE DAILY FOR 5 DAYS THEN TAKE 2 TABLETS BY MOUTH DAILY FOR 3 DAYS THEN TAKE 1 TABLET BY MOUTH DAILY FOR 3 DAYS 07/19 completed Not Available Not Available Not Available doxycycli ne hyclate 100 mg capsule TAKE 1 CAPSULE BY MOUTH TWICE DAILY WITH MEALS FOR 7 DAYS 08/17 completed Not Available Not Available Not Available cefuroxim e axetil 250 mg tablet 07/19 completed Not Available Not Available Not Available azithromy paula 250 mg tablet TK 2 TS PO ON DAY 1, THEN TK 1 T PO D FOR 4 DAYS 07/19 completed Not Available Not Available Not Available Cytotec 200 mcg tablet insert 4 by by vagina route all at once 01/15 completed Prescrib ed Elsewher e: No Locat ion: [facility] odify By: arabella Garcia ter DateTime : 01/02/20 14 09:00:00 AM Not Available Not Available Not Available metronida zole 0.75 % (37.5 mg/5 gram) vaginal gel INSERT 1 APPLICAT ORFUL VAGINALL Y AT BEDTIME FOR 5 NIGHTS 08/12 completed Not Available Not Available Not Available famotidin e 40 mg tablet 07/19 completed Not Available Not Available Not Available prednison e 20 mg tablet TAKE 2 TABLETS BY MOUTH ONCE DAILY 05/30 completed Not Available Not Available Not Available Prometriu m 100 mg capsule take 1 Capsule by oral route 2 times every day 09/07 completed Prescrib ed Elsewher e: Yes Loca tion: [facility] odify By: amkuhsusanne Gill ncomaddy DateTime : 08/03/20 14 08:30:00 AM Not Available Not Available Not Available sertralin e 100 mg tablet TAKE 1 TABLET BY MOUTH EVERY NIGHT active Not Available Not Available No t Available Zoloft 20 mg/mL oral concentra te 06/06 completed Not Available Not Available Not Available Selvin Low Dose Aspirin 81 mg tablet,de layed release take 1 tablet by oral route every day 11/30 completed Prescrib ed Elsewher e: Yes Loca tion: [facility] odify By: leónric h Jose ter DateTime : 07/19/20 14 10:00:00 AM Not Available Not Available Not Available phentermi ne 37.5 mg tablet TAKE 1 TABLET BY MOUTH EVERY DAY 07/19 completed Not Available Not Available Not Available doxycycli ne monohydra te 100 mg tablet 06/06 completed Not Available Not Available Not Available tramadol 50 mg tablet 07/19 completed Not Available Not Available Not Available triamcino lone acetonide 0.1 % topical cream APPLY TOPICALL Y TO THE AFFECTED AREA TWICE DAILY FOR 7 DAYS 06/06 completed Not Available Not Available Not Available Macrobid 100 mg capsule take 1 capsule by oral route every 12 hours with food 03/21 completed Prescrib ed Elsewher e: No Locat ion: [facility] odify By: arabella montesinos DateTime : 03/12/20 14 04:00:00 PM Not Available Not Available Not Available alprazola m 0.25 mg tablet TAKE 1 TABLET BY MOUTH DAILY NEEDED FOR ANXIETY active Not Available Not Available No t Available Methergin e 0.2 mg tablet take 1 tablet (0.2MG) by oral route every 6 hours 08/13 completed Prescrib ed Elsewher e: No Locat ion: [facility] odify By: ismael mireles DateTime : 08/03/20 13 09:45:00 AM Not Available Not Available Not Available doxycycli ne monohydra te 100 mg capsule 07/19 completed Not Available Not Available Not Available cephalexi n 500 mg capsule 07/19 completed Not Available Not Available Not Available oseltamiv ir 75 mg capsule TAKE 1 CAPSULE BY MOUTH TWICE DAILY WITH MEALS FOR 5 DAYS 08/17 completed Not Available Not Available Not Available Prednison e Intensol 5 mg/mL oral concentra te take 1 millilit er by oral route 4 times every day 01/13 completed Prescrib ed Elsewher e: Yes Loca tion: [facility] odify By: jeffery montesinos DateTime : 02/20/20 12 09:00:00 AM Not Available Not Available Not Available ergocalci ferol (vitamin D2) 1,250 mcg (50,000 unit) capsule TAKE ONE CAPSULE BY MOUTH WEEKLY active Not Available Not Available No t Available cefuroxim e axetil 500 mg tablet take 1 tablet by oral route every 12 hours 07/19 completed Not Available Not Available Not Available methylpre dnisolone 4 mg tablets in a dose pack FOLLOW PACKAGE DIRECTIO NS 07/19 completed Not Available Not Available Not Available hydrocodo ne 10 mg-chlorp heniramin e 8 mg/5 mL oral susp extend.re l 12hr TAKE 5 ML BY MOUTH EVERY 12 HOURS NEEDED FOR COUGH FOR UP TO 5 DAYS 07/19 completed Not Available Not Available Not Available albuterol sulfate HFA 90 mcg/actua tion aerosol inhaler INHALE 2 PUFFS BY MOUTH EVERY 4 TO 6 HOURS NEEDED active Not Available Not Available No t Available hydrocort isone 2.5 % topical ointment APPLY TO AREAS OF ECZEMA ON FACE TWICE DAILY FOR 2 WEEKS THEN STOP active Not Available Not Available No t Available cefdinir 300 mg capsule TAKE 1 CAPSULE BY MOUTH EVERY 12 HOURS FOR 7 DAYS 08/17 completed Not Available Not Available Not Available fluticaso ne propionat e 50 mcg/actua tion nasal spray,birgit pension SHAKE LIQUID AND USE 2 SPRAYS IN EACH NOSTRIL DAILY active Not Available Not Available No t Available Bactrim 400 mg-80 mg tablet take 2 tablet by oral route every 12 hours 05/07 completed Prescrib ed Elsewher e: Yes Loca tion: [facility] odify By: davey julien DateTime : 04/28/20 15 11:30:00 AM Not Available Not Available Not Available Zoloft 05/30 completed Not Available Not Available Not Available Vitamin D3 10 mcg (400 unit) capsule 05/30 completed Prescrib ed Elsewher e: Yes Loca tion: [facility] odify By: irving mireles DateTime : 04/28/20 15 11:30:00 AM Not Available Not Available Not Available Triveen-D uo DHA 29 mg-1 mg-400 mg oral pack take 2 by Oral route every day for 30 days 09/01 completed Prescrib ed Elsewher e: No Locat ion: [facility] odify By: song mireles DateTime : 08/03/20 14 08:30:00 AM Not Available Not Available Not Available 24Hour Allergy 10 mg tablet active Not Available Not Available Not Available [facility] mg disintegr ating tablet active Not Available Not Available Not Available BinaxNOW COVID-19 Ag Self Test kit TEST DIRECTED TODAY 07/19 completed Not Available Not Available Not Available Wegovy 2.4 mg/0.75 mL subcutane ous pen injector 06/06 completed Not Available Not Available Not Available Wegovy 1.7 mg/0.75 mL subcutane ous pen injector 06/06 completed Not Available Not Available Not Available Ozempic 2 mg/dose (8 mg/3 mL) subcutane ous pen injector INJECT 2 MG UNDER THE SKIN EVERY WEEK active Not Available Not Available No t Available Vitals Date Recorded Body height Body mass index (BMI) Body weight Provider Name and Address Organization Details Last Updated DateTime 05/31/2021 158.75 cm 51.3 kg/m2 278739.83 g J[facility]elyn [facility] 05/31/2021 10:19:18 Date Recorded Systolic blood pressure Diastolic blood pressure Provider Name and Address Organization Details Last Updated DateTime 05/31/2021 142 mm[Hg] 80 mm[Hg] Alison Lee, [facility]- [address], [place], [address], [facility] 05/31/2021 11:23:58 Date Recorded Body height Body mass index (BMI) Body weight Systolic blood pressure Diastolic blood pressure Provider Name and Address Organization Details Last Updated DateTime 06/06/2022 158.75 cm 42.5 kg/m2 596827.8 g 112 mm[Hg] 76 mm[Hg] Josselyn [facility] 2 09:49:43 Date Recorded Body height Body mass index (BMI) Body weight Systolic blood pressure Diastolic blood pressure Provider Name and Address Organization Details Last Updated DateTime 05/28/2020 161.29 cm 50.7 kg/m2 113616.3 8 g 142 mm[Hg] 87 mm[Hg] Verónica Lovell [facility] 0 12:09:10 Date Recorded Body height Body mass index (BMI) Body weight Systolic blood pressure Diastolic blood pressure Provider Name and Address Organization Details Last Updated DateTime 07/19/2023 158.75 cm 40.9 kg/m2 507569.4 7 g 133 mm[Hg] 83 mm[Hg] Yasmine Xavier [facility] 3 09:16:20 Date Recorded Body height Body mass index (BMI) Body weight Systolic blood pressure Diastolic blood pressure Provider Name and Address Organization Details Last Updated DateTime 08/17/2024 158.75 cm 43.8 kg/m2 197987.1 g 143 mm[Hg] 83 mm[Hg] Latricia Dorita [facility] 4 09:59:31 Social History Question Answer Notes LastModified by Organizat ion Details LastModified Time Tobacco Smoking Status Never Smoker Yasmine Xavier [facility] 07/19/2023 09:17:59 Do You Have An Advance Directive? No Information not available 05/31/2021 What Is Your Level Of Alcohol Consumption? Occasional Information not available 05/31/2021 How Many Years Have You Consumed Alcohol? 20 Information not available 05/31/2021 Are You Blind Or Do You Have Difficulty Seeing? No Information not available 05/31/2021 What Is Your Level Of Caffeine Consumption? Moderate Information not available 06/06/2022 How Much Tobacco Do You Chew? None Information not available 05/31/2021 In The 14 Days Before Symptom Onset, Have You Had Close Contact With A Laboratory-confir med COVID-19 While That Case Was Ill? No Information not available 05/31/2021 In The 14 Days Before Symptom Onset, Have You Had Close Contact With A Person Who Is Under Investigation For COVID-19 While That Person Was Ill? No Information not available 05/31/2021 Have You Been To An Area Known To Be High Risk For COVID-19? No Information not available 05/31/2021 Are You Deaf Or Do You Have Serious Difficulty Hearing? No Information not available 05/31/2021 What Type Of Diet Are You Following? SPECIFIC Information not available 06/06/2022 What Is The Highest Grade Or Level Of School You Have Completed Or The Highest Degree You Have Received? 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 Yes [email or web address] Information not available 07/19/2023 Do You Use Protection During Sex? Usually Information not available 05/31/2021 Do You Use Your Seat Belt Or Car Seat Routinely? Yes Information not available 05/31/2021 Do You Have Smoke And Carbon Monoxide Detectors In Your Home? Yes Information not available 05/31/2021 How Much Tobacco Do You Smoke? No Information not available 05/31/2021 Do You Feel Stressed (tense, Restless, Nervous, Or Anxious, Or Unable To Sleep At Night)? [id number] [email or web address] Information not available 07/19/2023 Do You Use Any Illicit Or Recreational Drugs? No Information not available 05/31/2021 Do You Use Sunscreen Routinely? Yes Information not available 05/31/2021 Have You Used IV Drugs? No Information not available 05/31/2021 Sex: Unknown Functional Status Question Answer Note LastModified by Organizat ion Details LastModified Time Do you have difficulty walking or climbing stairs? No [email or web address] Information not available 07/19/2023 Are you able to walk? YESWOREST Information not available 05/31/2021 Are you able to care for yourself? Yes [email or web address] Information not available 07/19/2023 Do you have difficulty dressing or bathing? No [email or web address] Information not available 07/19/2023 What is your exercise level? Moderate [email or web address] Information not available 07/19/2023 Mental Status None recorded. Family History Relationship Description Onset Age of this Age Resolved Age Notes LastModified by Organization Details LastModified Time Father Hypertensive disorder [email or web address] Not available 2019 22:40:37 Father Chronic hepatitis Not available 2023 09:39:59 Father Hyperlipidem ia [email or web address] Not available 2023 09:39:59 Father Carcinoma of prostate Not available 2023 09:39:59 Medical History Condition Response Allergies (Food, seasonal, environmental ) Y Other N Breast Cancer N Drug/Latex Allergies/Reactions Y Blood Transfusion N Dermatologic Disorders N Lung Disease N Defects or Inherited Disease N Breast Problem N Gestational Diabetes N Hematologic disorders N Anesthesia Complications N History of STI Y Deep Vein Thrombosis N Polycystic ovary syndrome N Anxiety Disorder Y Autoimmune disease N Arthritis N Infertility N Polyps N Acid Reflux (GERD) Y History of abnormal pap Y Cancer N Stroke N Varicosities N Neurologic/Epilepsy N Endometriosis N High Cholesterol N Headaches Y Fibromyalgia N Kidney Disease N Heart Problems N Kidney or Bladder Problems N Thyroid Problems N GI Problems N Eating Disorder N Anemia N Art (IVF or FET) N Psychiatric Illness N Ovarian Cancer N Diabetes N Pulmonary (TB, Asthma) N Hepatitis/Liver Disease N No Past Medical History N Eczema N Urinary Tract Infection N Abuse/Domestic Violence N Asthma N Trauma/Violence N Depression/ depression N Heart Disease N Pre-Eclampsia N Hypertension N Osteoporosis N Thrombophilias N Gynecological History Statement/Question Response Abnormal Pap Y Flow Heavy Date of Last Mammogram 08/15/2024 Date of LMP 08/03/2024 N On BCP's at Conception? N STIs/STDs Y Was last menstrual period normal Y HPV Vaccine N Duration of Flow (days) 4 Current Control Method Condoms Age at First Child 39 Date of Last Colonoscopy 09/05/2023 Frequency of Cycle (Q days) 28 Sexually Active? Y Menses Monthly Y Age of first menstrual cycle 16 Date of Last Pap Smear 07/19/2023 Sexual Problems? N LMP Approximate Desired Control Method IUD N Obstetrics History GPAL:G 3 P 1 0 2 1 Type Value Full Term 1 Spontaneous 2 Living 1 Total 3 Past Encounters Encounter ID Performer Location Encounter Start Date Encounter Closed Date Diagnosis/Indication Diagnosis SNOMED-CT Code Diagnosis ICD10 Code Diagnosis Note [id number] CJ Garcia[facility] [address] [address] 05/28/2020 11:55:22 05/28/2020 12:45:14 Gynecologic examination 44252450 Z01.419 Suggested Calcium with Vitamin D 1200-1500m g daily. Patient advised to get an annual flu shot in the fall and she could obtain at [facility] or [facility] care clinic. Also to obtain TDap vaccinatio n if you have not had one in the last 10 years. Recommend yearly mammograms . Encouraged monthly self breast exams. Encourage safe sexual practices, to use condoms and limit partners if not already in a monogamous relationsh ip. Engage in daily exercise of low impact aerobic exercise 45-60 minutes 4-5 times weekly. Avoid tobacco and illicit drugs as well as using moderation with alcohol intake less than 1-2 8 oz beverages daily. This lifestyle behavior pattern will lead to less health conditions and longer life span. If BMI greater than 25 weight watchers or dietary consult advised. All questions have been answered. Patient appears to understand informatio n, but if you have any questions please call or respond to this email. Breast tenderness [id number] N64.4 Right breast tenderness present no connected to menses. Screening mammography 24 511204 Z12.31 [id number] Alison Lee , [facility] [address] [address] 05/31/2021 10:07:55 05/31/2021 15:53:11 Gynecologic examination 24190237 Z01.419 Suggested Calcium with Vitamin D 1200-1500m g daily. Patient advised to get an annual flu shot in the fall and she could obtain at [facility] or [facility] care clinic. Also to obtain TDap vaccinatio n if you have not had one in the last 10 years. Recommend yearly mammograms . Encouraged monthly self breast exams. Encourage safe sexual practices, to use condoms and limit partners if not already in a monogamous relationsh ip. Engage in daily exercise of low impact aerobic exercise 45-60 minutes 4-5 times weekly. Avoid tobacco and illicit drugs as well as using moderation with alcohol intake less than 1-2 8 oz beverages daily. This lifestyle behavior pattern will lead to less health conditions and longer life span. If BMI greater than 25 weight watchers or dietary consult advised. All questions have been answered. Patient appears to understand informatio n, but if you have any questions please call or respond to this email.Pap/ hpv/STD sentNo Medical Pathologist related issues Contracept ion care management [id number] Z30.9 Considerin g contracept ion other than condoms.Wi ll let us know if interested in BC.We discussed BCP's/Nuva ring/Patch es/IUD/Imp lant.Her BP is elevated today likely from Prednisone .If calls and is interested in a BC method would recommend SLYND/IUD or other progestero ne only method to start until we know her BP is wnl. [id number] Alison Lee , [facility] [address] [address] 06/06/2022 09:20:51 06/06/2022 10:15:33 Gynecologic examination 09042612 Z11.51 Z11.3 Z11.8 Suggested Calcium with Vitamin D 1200-1500m g daily. Patient advised to get an annual flu shot in the fall and she could obtain at [facility] or [facility] care clinic. Also to obtain TDap vaccinatio n if you have not had one in the last 10 years. Recommend yearly mammograms . Encouraged monthly self breast exams. Encourage safe sexual practices, to use condoms and limit partners if not already in a monogamous relationsh ip. Engage in daily exercise of low impact aerobic exercise 45-60 minutes 4-5 times weekly. Avoid tobacco and illicit drugs as well as using moderation with alcohol intake less than 1-2 8 oz beverages daily. This lifestyle behavior pattern will lead to less health conditions and longer life span. If BMI greater than 25 weight watchers or dietary consult advised. All questions have been answered. Patient appears to understand informatio n, but if you have any questions please call or respond to this email.Pap/ hpv sent STD Screen sent Genetic Screen discussed Colon Screen na Dexa Screen na Routine Labs PCPMammo ordered [id number] Alison Lee , [facility] [address] [address] 07/19/2023 09:08:40 07/19/2023 09:31:18 Gynecologic examination 93124035 Z11.51 Z11.3 Z11.8 Suggested Calcium with Vitamin D 1200-1500m g daily. Patient advised to get an annual flu shot in the fall and she could obtain at [facility] or [facility] care clinic. Also to obtain TDap vaccinatio n if you have not had one in the last 10 years. Recommend yearly mammograms . Encouraged monthly self breast exams. Encourage safe sexual practices, to use condoms and limit partners if not already in a monogamous relationsh ip. Engage in daily exercise of low impact aerobic exercise 45-60 minutes 4-5 times weekly. Avoid tobacco and illicit drugs as well as using moderation with alcohol intake less than 1-2 8 oz beverages daily. This lifestyle behavior pattern will lead to less health conditions and longer life span. If BMI greater than 25 weight watchers or dietary consult advised. All questions have been answered. Patient appears to understand informatio n, but if you have any questions please call or respond to this email.Pap/ hpv sentSTD Screen sentGeneti c Screen discussedC olon Screen PCPDexa Screen naRoutine Labs PCPMammo ordered Screening mammography 288018 Z12.31 Contracept ion care management [id number] Z30.9 Discussed all control options and pt would like mirena IUD. I have discussed in detail all risks and benefits including risk of infection and perforatio n. She understand s she will need to contact office with next menses or may abstain, complete serum HCG day before placement, if neg can have IUD placed next day. Aware of need to verify with insurance device coverage. Literature given. All questions answered to patient satisfacti on. [id number] KENDALL GODFREY, [facility] [address] [address] 08/17/2024 09:39:10 08/17/2024 13:59:28 Gynecologic examination 04107761 Z01.419 Annual gynecologi tony exam performed. Patient will come back in a year unless there are new symptoms. Suggest Calcium with Vitamin D if not eating in diet. Patient advised to get annual flu shot. Recommend yearly physicals and perform monthly breast exams. Genetic testing is available for patients with family history of cancer. Engage in safe sexual practices, use condoms. Encouraged to have daily exercise. Avoid tobacco and illicit drugs, moderation of alcohol. If BMI greater than 25 dietary consult advised. If you have any questions please call or email. mammogram- UTD; order given - pt to scheduled annual mammogram colon cancer screening - UTD PCP DEXA scan- n/aPap smear- pap w/ HPV collected laboratory evaluation - PCP STI testing - requested Screening mammography 24 280906 Z12.31 Venereal d isease screening 858811225 Z11.3 Pt requested STI testing.Di scussed the various types of STDs, related symptoms and the potential consequenc es (including effects on fertility) of STD infections . Reviewed ways to limit exposure and prevention techniques . Menorrhagia [id number] N9 2.0 Today we discussed multiple options for menorrhagi a including: IUDs, Patch, Ring, Pills, Nexplanon, Lysteda; Endometria l ablation (requires MD consult). We discussed if any are contraindi cated with her current health Hx.Patient may be interested in Mirena IUD, but wants to further consider options. Pt to call to schedule IUD insertion when she starts a period if she decides to get one. Risks/bene fits discussed. Health Concerns Section Related Observation LastModified by Organization Detai ls LastModified Time None Recorded Concern Status LastModified by Organization Details LastModified Time None Recorded Advance Directives Directive N: Payers Encounter Date Sequence Insurance Name Policy Number Policy Mtz Covered Member ID Mtz Member ID Guarantor Name 05/28/2020 1 [facility] [id number] Keely Pointer [id number] Keely Pointer 05/31/2021 1 [facility] [id number] Keely Pointer [id number] Keely Pointer 06/06/2022 1 [facility] [id number] Keely Pointer [id number] Keely Pointer 07/19/2023 1 [facility] [id number] Keely Pointer [id number] Keely Pointer 08/17/2024 1 [facility] [id number] Keely Pointer [id number] Keely Pointer Notes Date Note Type Note Provider Name and Address Organization Details Recorded Time 05/28/2020 text/html Annual GYNReport ed bypatient.History: no gynecologic complaints Menstrual cycle:Normal menses Urinary symptoms:No hematuria; No incontinence Vulva:No genital lesion Vagina:Normal vaginal discharge Breast:No breast lump; No nipple discharge;Breast pain; right breast Current Contraception:Sati sfied with current contraception; Monogamous relationship; Condoms Sexual complaints:No sexual complaints; No pain during intercourse; Normal libido Menopausal Symptoms:No menopausal symptoms; Normal vaginal lubrication Psychological symptoms:No depression; No anxiety; No PMDD Preventive measures:Encourage self breast examination; Encourage regular exercise; Encourage no tobacco use; Encourage regular mammograms starting age 40; Followed with Q3 year pap smear and high risk HPV typing; History of abnormal pap smear/cervical dysplasia; Needs to schedule mammogram [facility] [address], [place], [address], [facility] 05/28/2020 12:36:34 05/31/2021 text/html Annual GYNReport ed bypatient.History: no gynecologic complaints Menstrual cycle:Normal menses Urinary symptoms:No hematuria; No incontinence Vulva:No genital lesion Vagina:Normal vaginal discharge Breast:No breast pain; No breast lump; No nipple discharge Current Contraception:Wilson gamous relationship; Condoms; Requests testing for sexually transmitted infections Sexual complaints:No sexual complaints; No pain during intercourse; Normal libido Menopausal Symptoms:No menopausal symptoms; Normal vaginal lubrication Psychological symptoms:No depression; No anxiety; No PMDD Preventive measures:Encourage self breast examination; Encourage regular exercise; Encourage no tobacco use; Encourage regular mammograms starting age 40; History of abnormal pap smear/cervical dysplasia (+HR HPV in 2017 but wnl since that time.); Needs to schedule mammogram Recently stung by a bee.Very allergicHad to get a prednisone injection & then has been on prednisone x 7 days.Feels this is why her BP is elevated as it is normally fine.She goes back to doctor in a couple of days for check up. Alison Lee [facility] [address], [place], [address], [facility] 05/31/2021 11:24:18 06/06/2022 text/html Annual GYNReport ed bypatient.Menstrua l cycle:Normal menses Urinary symptoms:No hematuria; No incontinence Vulva:No genital lesion Vagina:Normal vaginal discharge Breast:No breast pain; No breast lump; No nipple discharge Current Contraception:Sati sfied with current contraception; Condoms Sexual complaints:No sexual complaints; No pain during intercourse; Normal libido Menopausal Symptoms:No menopausal symptoms; Normal vaginal lubrication Psychological symptoms:No depression; No anxiety; No PMDD Preventive measures:Encourage self breast examination; Encourage regular exercise; Encourage no tobacco use; Encourage regular mammograms starting age 40; Followed with yearly pap smears; Needs to schedule mammogram [facility] [address], [place], [address], [facility] 06/06/2022 09:57:59 07/19/2023 text/html Annual GYNReport ed bypatient.History: no gynecologic complaints Menstrual cycle:Menorrhagia Urinary symptoms:No hematuria; No incontinence Vulva:No genital lesion Vagina:Normal vaginal discharge Breast:No breast pain; No breast lump; No nipple discharge Current Contraception:Cond oms Sexual complaints:No sexual complaints; No pain during intercourse; Normal libido Menopausal Symptoms:No menopausal symptoms; Normal vaginal lubrication Psychological symptoms:No depression; No anxiety; No PMDD Preventive measures:Encourage self breast examination; Encourage regular exercise; Encourage no tobacco use; Encourage regular mammograms starting age 40; Followed with yearly pap smears; Needs to schedule mammogram; Needs to schedule colonoscopy [facility] [address], [place], [address], [facility] 07/19/2023 09:31:12 08/17/2024 text/html Annual GYNReport ed bypatient.History: no gynecologic complaints Menstrual cycle:Normal menses Urinary symptoms:No hematuria; No incontinence Vulva:No genital lesion Vagina:Normal vaginal discharge Breast:No breast pain; No breast lump; No nipple discharge Current Contraception:Cond oms Sexual complaints:No sexual complaints; No pain during intercourse; Normal libido Menopausal Symptoms:No menopausal symptoms; Normal vaginal lubrication Psychological symptoms:No depression; No anxiety; No PMDD Preventive measures:Encourage self breast examination; Encourage regular exercise; Encourage no tobacco use; Encourage regular mammograms starting age 40; Mammogram performed within the past year; Up to date on colonoscopy screening Patient presents for annual well woman exam.Patient reports heavy periods that last 3-4 days with regular cycles.Patient not currently on BC, uses condoms. Patient considering getting IUD. KENDALL GODFREY NP [address], [place], [address], [facility] 08/17/2024 13:56:42 OBGyn Episode Ob Episode Information Episode Created Date Number of Fetuses Patient Bloodtype Patient rh Status Prepregnancy Weight lbs Domestic Partner Domestic Partner Phone Father Name Extractor Tender Raw Stock Status 05/28/20 20 1 CLOSED Fetus Data First Name Last Name Admitted to NICU Weight (g) Sex Living Outcome Pediatric Complications Fetus ID Race Codes Race Delivery Type [id number] Primary Inocencio Calculation Initial Inocencio Date Initial Exam Date Initial Exam Provider Initial Ultrasound Date Last Menstrual Period Date Ultra Sound Weeks Gestation 0 Eighteen To Twenty Week Inocencio Update Ultra Sound Date Fundal Height At Umbil Quickening Date Ultra Sound Latest Weeks Gestation Final Inocencio Confirmed By Final Inocencio Confirmed Date Final Inocencio Date Ultra Sound Latest Days Gestation 0 0 Menstrual History Last Menstrual Date Menses Monthly On Bcp Conception Prior Menses Frequency Hcg Plus Date Menarche Onset Age Delivery Information Delivery Date Delivery Type Labor Anesthesia Weeks Gestation Incision Type Labor Labor Length Hrs Delivered By Post Complications Tubal Sterilization Discharge Date Comments 5 breech,G H TN,Gbs+ Discharge Information Feeding Method Contraceptive Method Maternal HG B and HCT Levels Ob Episode Information Episode Created Date Number of Fetuses Patient Bloodtype Patient rh Status Prepregnancy Weight lbs Domestic Partner Domestic Partner Phone Father Name Extractor Tender Raw Stock Status 05/28/20 20 1 CLOSED Fetus Data First Name Last Name Admitted to NICU Weight (g) Sex Living Outcome Pediatric Complications Fetus ID Race Codes Race Delivery Type , Spontane ous [id number] Inocencio Calculation Initial Inocencio Date Initial Exam Date Initial Exam Provider Initial Ultrasound Date Last Menstrual Period Date Ultra Sound Weeks Gestation 0 Eighteen To Twenty Week Inocencio Update Ultra Sound Date Fundal Height At Umbil Quickening Date Ultra Sound Latest Weeks Gestation Final Inocencio Confirmed By Final Inocencio Confirmed Date Final Inocencio Date Ultra Sound Latest Days Gestation 0 0 Menstrual History Last Menstrual Date Menses Monthly On Bcp Conception Prior Menses Frequency Hcg Plus Date Menarche Onset Age Delivery Information Delivery Date Delivery Type Labor Anesthesia Weeks Gestation Incision Type Labor Labor Length Hrs Delivered By Post Complications Tubal Sterilization Discharge Date Comments 4 Discharge Information Feeding Method Contraceptive Method Maternal HG B and HCT Levels Ob Episode Information Episode Created Date Number of Fetuses Patient Bloodtype Patient rh Status Prepregnancy Weight lbs Domestic Partner Domestic Partner Phone Father Name Extractor Tender Raw Stock Status 05/28/20 20 1 CLOSED Fetus Data First Name Last Name Admitted to NICU Weight (g) Sex Living Outcome Pediatric Complications Fetus ID Race Codes Race Delivery Type , Spontane ous 4121 Inocencio Calculation Initial Inocencio Date Initial Exam Date Initial Exam Provider Initial Ultrasound Date Last Menstrual Period Date Ultra Sound Weeks Gestation 0 Eighteen To Twenty Week Inocencio Update Ultra Sound Date Fundal Height At Umbil Quickening Date Ultra Sound Latest Weeks Gestation Final Inocencio Confirmed By Final Inocencio Confirmed Date Final Inocencio Date Ultra Sound Latest Days Gestation 0 0 Menstrual History Last Menstrual Date Menses Monthly On Bcp Conception Prior Menses Frequency Hcg Plus Date Menarche Onset Age Delivery Information Delivery Date Delivery Type Labor Anesthesia Weeks Gestation Incision Type Labor Labor Length Hrs Delivered By Post Complications Tubal Sterilization Discharge Date Comments 3 Discharge Information Feeding Method Contraceptive Method Maternal HG B and HCT Levels
--- OUTSIDE RECORDS SUMMARY | 2024-11-06 08:01 | XMS_ITS | Clinical Summary ---
Author Organization [facility] Address [address] [place] [address] Phone Care Team Providers Care Card Seller Name Role Phone Kunal Sims MD Primary Care Provider [phone] Allergies Active Allergy Reactions Criticality Noted Date Comments Penicillins Hives 04/18/2018 Medications sertraline (ZOLOFT) 50 MG Tablet Take 50 mg by mouth daily. Active albuterol 108 (90 Base) MCG/ACT Aerosol Solution take 2 Puffs by inhalation every 4 hours as needed for Cough. 8.5 g 9 Active Additional Information Patient not taking.Reported on 09/16/2021 predniSONE (DELTASONE) 20 MG Tablet 3 po q am times 2 days 2 po q am times 2 days 1 po q am times 3 days take medication in am with food. 13 Tab 9 Active Additional Information Patient not taking.Reported on 09/16/2021 traMADol (ULTRAM) 50 MG Tablet Take 1 Tab by mouth every 6 hours as needed for Moderate or more severe pain. 10 Tab 9 Active Additional Information Patient not taking.Reported on 09/16/2021 naproxen (NAPROSYN) 500 MG Tablet Take 1 Tab by mouth 2 times daily as needed for Moderate or more severe pain. 20 Tab 9 Active Additional Information Patient not taking.Reported on 09/16/2021 Active Problems No known active problems Social History Tobacco Use Types Packs/Day Years Used Date Smoking Tobacco: Never Smokeless Tobacco: Never Alcohol Use Standard Drinks/Week Comments Yes 0 (1 standard drink = 0.6 oz pur e alcohol) socially Comments No Sex and Gender Information Value Date Recorded Sex Assigned at Not on file Legal Sex Female 1:32 PM [employer] Gender Identity Not on file Sexual Orientation Not on file Last Filed Vital Signs Vital Sign Reading Time Taken Comments Blood Pressure 152/102 09/16/2021 3:11 PM [employer] Pulse 113 09/16/2021 3:00 PM [employer] Temperature 37.1 C (98.8 F) 09/16/2021 3:00 PM [employer]CH [employer] Respiratory Rate 18 09/16/2021 3:00 PM TECH ED[employer] Oxygen Saturation 99% 09/16/2021 3:00 PM TECH ED[employer] Inhaled Oxygen Concentration - - Weight 117.9 kg (260 lb) 03/05/2019 2:17 PM CDT Height 162.6 cm (5' 4 ) 03/05/2019 2:17 PM CDT Body Mass Index 44.63 03/05/2019 2:17 PM CDT Plan of Treatment Health Maintenance Due Date Last Done Comments Hepatitis C Virus (HCV) Screening 1977 Hepatitis B Immunization (1 of 3 - 19+ 3-dose series) 1996 Pap Smear 1998 Cervical Cancer Screening (CCS) 2007 HPV/Cotest 2007 Discussion re Starting/Frequency of Mammograms 2017 Colonoscopy 2022 Colorectal Cancer Screening 2022 Influenza Immunization (#1) 05/31/202406/30, 07/23/2017, 07/02/2016, Additional history exists SARS-COV-2 Immunization ( season) 2024 09/12/2021, 12/17/2020, 11/29/2020, Additional history exists Respiratory Syncytial Virus (RSV) Immunization (Adult) (1 - 1-dose 75+ series) 2052 DTaP/Tdap/Td Immunization Discontinued 12/12/2014 TdaP Immunization Completed 12/12/2014 Meningococcal Immunization (ACWY) Aged Out No longer eligible based on patient's age to complete this topic Pneumococcal Immunization Combined Aged Out No longer eligible based on patient's age to complete this topic Rotavirus Immunization Aged Out No lo nger eligible based on patient's age to complete this topic Care Teams Card Seller Relationship Specialty Start Date End [place] [id number] [address] PCP - General Internal Medicine 03/05/19
--- OUTSIDE RECORDS SUMMARY | 2024-11-06 08:02 | XMS_ITS | Data Portability ---
Author Organization [facility] Address [address] [place] [address] Assessment No assessment recorded. Plan of Treatment Reminders Order Date Submit Date Provider Last Modified By Organization Details Last Modified Time Details Appointments None steff shay Lab urinaly sis, dipstic k 2022 023 In-Office Order, Internal Use Only DO Not Attach Compendium DO Not Attach Compendium, Do Not Delete/merge, [id number] 15:02:13 pregnan cy test, urine 2022 023 MINI In-Office Order, Internal Use Only DO Not Attach Compendium DO Not Attach Compendium, Do Not Delete/merge, [id number] 3 17:10:50 rapid strep group A, throat 2023 024 In-Office Order, Internal Use Only DO Not Attach Compendium DO Not Attach Compendium, Do Not Delete/merge, [id number] 4 10:59:46 rapid flu (A+B) 2023 024 In-Office Order, Internal Use Only DO Not Attach Compendium DO Not Attach Compendium, Do Not Delete/merge, [id number] 4 10:59:47 rapid SARS CoV 2 Ag, QL IA, respira tory specime n 2023 024 In-Office Order, Internal Use Only DO Not Attach Compendium DO Not Attach Compendium, Do Not Delete/merge, [id number] 4 10:59:49 strepto coccus group A, culture , throat 2023 024 [facility], Denisa [address]ath, [address], [place], [address], 4 09:08:50 influen za virus A + B + SARS-Co V-2 (COVID1 9) Ag panel, rapid IA, upper respira tory specime n 2023 024 In-Office Order, Internal Use Only DO Not Attach Compendium DO Not Attach Compendium, Do Not Delete/merge, [id number] 4 10:54:10 rapid strep group A, throat 2023 024 In-Office Order, Internal Use Only DO Not Attach Compendium DO Not Attach Compendium, Do Not Delete/merge, [id number] 10:54:08 CBC w/ auto diff 2024 025 [facility], [address]isa [address], [address], [place], [address], 5 08:26:51 CMP, serum or plasma 2024 025 [facility], Denisa [address], [address], [place], [address], 5 08:26:49 lipid panel, serum 2024 025 [facility], Denisa [address], [address], [place], [address], 5 08:26:47 HbA1c (hemogl obin A1c), blood 2024 025 [facility], Denisa [address], [address], [place], [address], 5 08:26:50 vitamin D, 25-hydr oxy, total, serum 2024 025 [facility], [address], [address], [place], [address], 5 08:26:52 TSH + free T4, serum 2024 025 [facility], [address], [address], [place], [address], 5 08:26:46 Referral None recorde d. Procedures None recorde d. Surgeries None recorde d. Imaging US, pelvis, transab dominal + transva ginal - HOLD AND CALL Please fax results to 2022 023 [facility], [address] [place] [address] , [place] [address], [place], [address], 3 13:07:07 Medication Orders oseltam ivir 75 mg capsule 2023 024 [id number], [address] , [place], [place], [id number], 4 15:58:36 Patient TargetsNo targets recorded. Patient Instructions Encounter Date Encounter Id Patient Instructions Last Modified By Organization Details Last Modified Time 07/24/2023 [id number] pelvic pain: car e instructions Not available 07/29/2023 14:20:47 11/27/2023 [id number] influenza (flu): care instructions Not available 11/27/2023 11:58:00 01/02/2024 [id number] nausea and vomiting: care instructions Not available 01/06/2024 10:54:46 Reason for Referral None Reported. Results Created Date Observation Date Name Description Value Unit Range Abnormal Flag Note LastModifiedBy Organization Detail LastModifiedTime 07/24/20 23 07/24/2023 pregn lashay test, urine HCG negati ve Not Available In-Office Order Internal Use Only DO Not Attach Compendium DO Not Attach Compendium, Do Not Delete/merge, [id number] 07/24/2023 14:55:54 07/24/2007/24/2023 urina lysis , dipst ick Leukocytes Negati ve Not Available In-Office Order Internal Use Only DO Not Attach Compendium DO Not Attach Compendium, Do Not Delete/merge, [id number] 07/24/2023 14:55:48 07/24/2007/24/2023 urina lysis , dipst ick Nitrite negati ve Not Available In-Office Order Internal Use Only DO Not Attach Compendium DO Not Attach Compendium, Do Not Delete/merge, [id number] 07/24/2023 14:55:48 07/24/2007/24/2023 urina lysis , dipst ick Urobilinogen .2 Not Available In-Of fice Order Internal Use Only DO Not Attach Compendium DO Not Attach Compendium, Do Not Delete/merge, [id number] 07/24/2023 14:55:48 07/24/2007/24/2023 urina lysis , dipst ick Protein Negati ve Not Available In-Office Order Internal Use Only DO Not Attach Compendium DO Not Attach Compendium, Do Not Delete/merge, [id number] 07/24/2023 14:55:48 07/24/2007/24/2023 urina lysis , dipst ick pH 5.5 Not Available In-Office Order Internal Use Only DO Not Attach Compendium DO Not Attach Compendium, Do Not Delete/merge, [id number] 07/24/2023 14:55:48 07/24/2007/24/2023 urina lysis , dipst ick Blood Negati ve Not Available In-Office Order Internal Use Only DO Not Attach Compendium DO Not Attach Compendium, Do Not Delete/merge, [id number] 07/24/2023 14:55:48 07/24/2007/24/2023 urina lysis , dipst ick Specific Gilford 1.015 Not Available In-Off ice Order Internal Use Only DO Not Attach Compendium DO Not Attach Compendium, Do Not Delete/merge, [id number] 07/24/2023 14:55:48 07/24/20 23 07/24/2023 urina lysis , dipst ick Ketone Negati ve Not Available In-Office Order Internal Use Only DO Not Attach Compendium DO Not Attach Compendium, Do Not Delete/merge, [id number] 07/24/2023 14:55:48 07/24/20 23 07/24/2023 urina lysis , dipst ick Bilirubin Negati ve Not Available In-Office Order Internal Use Only DO Not Attach Compendium DO Not Attach Compendium, Do Not Delete/merge, [id number] 07/24/2023 14:55:48 07/24/2007/24/2023 urina lysis , dipst ick Glucose Negati ve Not Available In-Office Order Internal Use Only DO Not Attach Compendium DO Not Attach Compendium, Do Not Delete/merge, [id number] 07/24/2023 14:55:48 07/24/2007/24/2023 urina lysis , dipst ick Appearance Clear Not Available In-Offi ce Order Internal Use Only DO Not Attach Compendium DO Not Attach Compendium, Do Not Delete/merge, [id number] 07/24/2023 14:55:48 07/24/2007/24/2023 urina lysis , dipst ick Color Yellow Not Available In-Office Order Internal Use Only DO Not Attach Compendium DO Not Attach Compendium, Do Not Delete/merge, [id number] 07/24/2023 14:55:48 11/27/19 24 11/27/2023 rapid SARS CoV 2 Ag, QL IA, respi rator y speci men rapid SARS CoV 2 Ag, QL IA, respiratory specimen negati ve Not Available In-Office Order Internal Use Only DO Not Attach Compendium DO Not Attach Compendium, Do Not Delete/merge, [id number] 11/27/2023 10:59:18 11/27/19 24 11/27/2023 rapid flu (A+B) Flu A negati ve Not Available In-Office Order Internal Use Only DO Not Attach Compendium DO Not Attach Compendium, Do Not Delete/merge, [id number] 11/27/2023 10:59:10 11/27/19 24 11/27/2023 rapid flu (A+B) Flu B positi ve Not Available In-Office Order Internal Use Only DO Not Attach Compendium DO Not Attach Compendium, Do Not Delete/merge, [id number] 11/27/2023 10:59:10 11/27/19 24 11/27/2023 rapid strep group A, throa t Strep negati ve Not Available In-Office Order Internal Use Only DO Not Attach Compendium DO Not Attach Compendium, Do Not Delete/merge, [id number] 11/27/2023 10:59:08 11/28/19 24 12/01/2023 BETA STREP GP A CULTU RE beta strep gp A culture Negati ve Refer ence Range : Negat murali Not Available [facility] ([facility]) [address], [place], [address], 12/01/2023 09:08:49 01/06/20 24 01/06/2024 rapid strep group A, throa t Strep negati ve Not Available In-Office Order Internal Use Only DO Not Attach Compendium DO Not Attach Compendium, Do Not Delete/merge, [id number] 01/06/2024 10:53:51 01/06/20 24 01/06/2024 influ albertina virus A + B + SARS- CoV-2 (COVI D19) Ag panel , rapid IA, upper respi rator y speci men Flu A negati ve Not Available In-Office Order Internal Use Only DO Not Attach Compendium DO Not Attach Compendium, Do Not Delete/merge, [id number] 01/06/2024 10:53:44 01/06/20 24 01/06/2024 influ albertina virus A + B + SARS- CoV-2 (COVI D19) Ag panel , rapid IA, upper respi rator y speci men Flu B negati ve Not Available In-Office Order Internal Use Only DO Not Attach Compendium DO Not Attach Compendium, Do Not Delete/merge, [id number] 01/06/2024 10:53:44 01/06/20 24 01/06/2024 influ albertina virus A + B + SARS- CoV-2 (COVI D19) Ag panel , rapid IA, upper respi rator y speci men Rapid SARS CoV 2 Ag, QL IA, respiratory specimen negati ve Not Available In-Office Order Internal Use Only DO Not Attach Compendium DO Not Attach Compendium, Do Not Delete/merge, [id number] 01/06/2024 10:53:44 10/14/19 25 10/15/2024 TSH+F REE T4 TSH 1.520 uIU/m L 0.450- 4.500 Not Available [facility] ([facility]) [address] [place], [address], 10/15/2024 08:26:46 10/14/19 25 10/15/2024 TSH+F REE T4 T4,free(dire ct) 1.07 NG/dL 0.82-1 .77 Not Available [facility] ([facility]) [address] [place], [address], 10/15/2024 08:26:46 10/14/19 25 10/15/2024 LIPID PANEL cholesterol, total 248 mg/dL 100-19 9 above high normal Not Available [facility] ([facility]) [address] [place], [address], 10/15/2024 08:26:47 10/14/19 25 10/15/2024 LIPID PANEL triglyceride s 115 mg/dL 0-149 Not Available [facility]) [address] [place], [address], 10/15/2024 08:26:47 10/14/19 25 10/15/2024 LIPID PANEL HDL cholesterol 56 mg/dL >39 Not Available [facility]) [address] [place], [address], 10/15/2024 08:26:47 10/14/19 25 10/15/2024 LIPID PANEL VLDL cholesterol lauren 20 mg/dL 5-40 Not Available [facility] ([facility]) [address] [place], [address], 10/15/2024 08:26:47 10/14/19 25 10/15/2024 LIPID PANEL LDL chol calc (rust) 172 mg/dL 0-99 above high normal Not Available [facility] ([facility]) [address] [place], [address], 10/15/2024 08:26:47 10/14/19 25 10/15/2024 COMP. METAB OLIC PANEL (14) glucose 58 mg/dL 70-99 below low normal Not Available [facility] ([facility]) [address] [place], [address], 10/15/2024 08:26:48 10/14/19 25 10/15/2024 COMP. METAB OLIC PANEL (14) BUN 13 mg/dL 6-24 Not Available [facility] ([facility]) [address] [place], [address], 10/15/2024 08:26:48 10/14/19 25 10/15/2024 COMP. METAB OLIC PANEL (14) creatinine 0.71 mg/dL 0.57-1 .00 Not Available [facility] ([facility]) [address] [place], [address], 10/15/2024 08:26:48 10/14/19 25 10/15/2024 COMP. METAB OLIC PANEL (14) eGFR 105 mL/mi n/1.7 3 >59 Not Available [facility] ([facility]) [address] [place], [address], 10/15/2024 08:26:48 10/14/19 25 10/15/2024 COMP. METAB OLIC PANEL (14) BUN/creatini ne ratio 18 9-23 Not Available [facility] ([facility]) [address] [place], [address], 10/15/2024 08:26:48 10/14/19 25 10/15/2024 COMP. METAB OLIC PANEL (14) sodium 138 mmol/ L 134-14 4 Not Available [facility] ([facility]) [address] [place], [address], 10/15/2024 08:26:48 10/14/19 25 10/15/2024 COMP. METAB OLIC PANEL (14) potassium 4.7 mmol/ L 3.5-5. 2 Not Available [facility] ([facility]) [address] [place], [address], 10/15/2024 08:26:48 10/14/19 25 10/15/2024 COMP. METAB OLIC PANEL (14) chloride 101 mmol/ L 96-106 Not Available [facility] ([facility]) [address] [place], [address], 10/15/2024 08:26:48 10/14/19 25 10/15/2024 COMP. METAB OLIC PANEL (14) carbon dioxide, total 21 mmol/ L 20-29 Not Available [facility] ([facility]) [address] [place], [address], 10/15/2024 08:26:48 10/14/19 25 10/15/2024 COMP. METAB OLIC PANEL (14) calcium 9.0 mg/dL 8.7-10 .2 Not Available [facility] ([facility]) [address] [place], [address], 10/15/2024 08:26:48 10/14/19 25 10/15/2024 COMP. METAB OLIC PANEL (14) protein, total 7.1 g/dL 6.0-8. 5 Not Available [facility] ([facility]) [address] [place], [address], 10/15/2024 08:26:48 10/14/19 25 10/15/2024 COMP. METAB OLIC PANEL (14) albumin 4.3 g/dL 3.9-4. 9 Not Available [facility] ([facility]) [address] [place], [address], 10/15/2024 08:26:48 10/14/19 25 10/15/2024 COMP. METAB OLIC PANEL (14) globulin, total 2.8 g/dL 1.5-4. 5 Not Available [facility] ([facility]) [address] [place], [address], 10/15/2024 08:26:48 10/14/19 25 10/15/2024 COMP. METAB OLIC PANEL (14) bilirubin, total 0.3 mg/dL 0.0-1. 2 Not Available [facility] ([facility]) [address] [place], [address], 10/15/2024 08:26:48 10/14/19 25 10/15/2024 COMP. METAB OLIC PANEL (14) alkaline phosphatase 90 IU/L 44-121 Not Available [facility]) [address] [place], [address], 10/15/2024 08:26:48 10/14/19 25 10/15/2024 COMP. METAB OLIC PANEL (14) AST (SGOT) 19 IU/L 0-40 Not Available [facility] ([facility]) [address] [place], [address], 10/15/2024 08:26:48 10/14/19 25 10/15/2024 COMP. METAB OLIC PANEL (14) ALT (SGPT) 16 IU/L 0-32 Not Available [facility] ([facility]) [address] [place], [address], 10/15/2024 08:26:48 10/14/19 25 10/15/2024 HEMOG LOBIN A1C hemoglobin A1C 5.3 % 4.8-5. 6 Predi abete s: 5.7 - 6.4 Diabe kate: >6.4 Glyce samantha contr ol for adult s with diabe kate: <7.0 Not Available [facility] ([facility]) [address], [place], [address], 10/15/2024 08:26:50 10/14/1910/15/2024 CBC WITH DIFFE RENTI AL/PL ATELE T WBC 7.5 x10e3 /uL 3.4-10 .8 Not Available [facility] ([facility]) [address], [place], [address], 10/15/2024 08:26:51 10/14/1910/15/2024 CBC WITH DIFFE RENTI AL/PL ATELE T RBC 5.18 x10e6 /uL 3.77-5 .28 Not Available [facility] ([facility]) [address] [facility], [place], [address], 10/15/2024 08:26:51 10/14/1910/15/2024 CBC WITH DIFFE RENTI AL/PL ATELE T hemoglobin 14.2 g/dL 11.1-1 5.9 Not Available [facility] ([facility]) [address], [place], [address], 10/15/2024 08:26:51 10/14/1910/15/2024 CBC WITH DIFFE RENTI AL/PL ATELE T hematocrit 44.7 % 34.0-4 6.6 Not Available [facility] ([facility]) [address] [facility], [place], [address], 10/15/2024 08:26:51 10/14/1910/15/2024 CBC WITH DIFFE RENTI AL/PL ATELE T MCV 86 fL 79-97 Not Available [facility] ([facility]) [address] [place], [address], 10/15/2024 08:26:51 10/14/19 25 10/15/2024 CBC WITH DIFFE RENTI AL/PL ATELE T MCH 27.4 pg 26.6-3 3.0 Not Available [facility] ([facility]) [address] [facility], [place], [address], 10/15/2024 08:26:51 10/14/19 25 10/15/2024 CBC WITH DIFFE RENTI AL/PL ATELE T MCHC 31.8 g/dL 31.5-3 5.7 Not Available [facility] ([facility]) [address], [place], [address], 10/15/2024 08:26:51 10/14/19 25 10/15/2024 CBC WITH DIFFE RENTI AL/PL ATELE T RDW 13.2 % 11.7-1 5.4 Not Available [facility] ([facility]) [address] [facility], [place], [address], 10/15/2024 08:26:51 10/14/19 25 10/15/2024 CBC WITH DIFFE RENTI AL/PL ATELE T platelets 271 x10e3 /uL 150-45 0 Not Available [facility] ([facility]) [address] [facility], [place], [address], 10/15/2024 08:26:51 10/14/19 25 10/15/2024 CBC WITH DIFFE RENTI AL/PL ATELE T neutrophils 68 % notest ab. Not Available [facility] ([facility]) [address] [place], [address], 10/15/2024 08:26:51 10/14/1910/15/2024 CBC WITH DIFFE RENTI AL/PL ATELE T lymphs 23 % notest ab. Not Available [facility] ([facility]) [address] [place], [address], 10/15/2024 08:26:51 10/14/19 25 10/15/2024 CBC WITH DIFFE RENTI AL/PL ATELE T monocytes 7 % notest ab. Not Available [facility] ([facility]) [address] [place], [address], 10/15/2024 08:26:51 10/14/19 25 10/15/2024 CBC WITH DIFFE RENTI AL/PL ATELE T eos 2 % notest ab. Not Available [facility] ([facility]) [address] [facility], [place], [address], 10/15/2024 08:26:51 10/14/1910/15/2024 CBC WITH DIFFE RENTI AL/PL ATELE T basos 0 % notest ab. Not Available [facility] ([facility]) [address] [facility], [place], [address], 10/15/2024 08:26:51 10/14/19 25 10/15/2024 CBC WITH DIFFE RENTI AL/PL ATELE T neutrophils (absolute) 5.1 x10e3 /uL 1.4-7. 0 Not Available [facility] ([facility]) [address] [facility], [place], [address], 10/15/2024 08:26:51 10/14/1910/15/2024 CBC WITH DIFFE RENTI AL/PL ATELE T lymphs (absolute) 1.7 x10e3 /uL 0.7-3. 1 Not Available [facility] ([facility]) [address] [facility], [place], [address], 10/15/2024 08:26:51 10/14/1910/15/2024 CBC WITH DIFFE RENTI AL/PL ATELE T monocytes(ab solute) 0.5 x10e3 /uL 0.1-0. 9 Not Available [facility] ([facility]) [address] [place], [address], 10/15/2024 08:26:51 10/14/19 25 10/15/2024 CBC WITH DIFFE RENTI AL/PL ATELE T eos (absolute) 0.1 x10e3 /uL 0.0-0. 4 Not Available [facility] ([facility]) [address] [facility], [place], [address], 10/15/2024 08:26:51 10/14/1910/15/2024 CBC WITH DIFFE RENTI AL/PL ATELE T baso (absolute) 0.0 x10e3 /uL 0.0-0. 2 Not Available [facility] ([facility]) [address] [place], [address], 10/15/2024 08:26:51 10/14/1910/15/2024 CBC WITH DIFFE RENTI AL/PL ATELE T immature granulocytes 0 % notest ab. Not Available [facility] ([facility]) [address] [facility], [place], [address], 10/15/2024 08:26:51 10/14/1910/15/2024 CBC WITH DIFFE RENTI AL/PL ATELE T immature grans (abs) 0.0 x10e3 /uL 0.0-0. 1 Not Available [facility] ([facility]) [address] [facility], [place], [address], 10/15/2024 08:26:51 10/14/1910/15/2024 VITAM IN D, 25-HY DROXY vitamin D, 25-hydroxy 22.4 NG/mL 30.0-1 00.0 below low normal Vitam in D defic iency has been defin ed by the Insti tute of Medic ine and an Endoc rine Socie ty pract ice guide line as a level of serum 25-OH vitam in D less than 20 ng/mL (1,2) . The Endoc rine Socie ty went on to furth er defin e vitam in D insuf ficie ncy as a level betwe en 21 and 29 ng/mL (2). 1. IOM (Inst itute of Medic ine). 2010. Dieta ry refer ence intak es for calci um and D. Evelyn gutierrez [place]: The [facility] Press . 2. Charity laws MF, Sayra joseph [place], Bisjose miguel off-F beatriz i YING, et al. Evalu ation , treat ment, and preve ntion of vitam in D defic iency : an Endoc rine Socie ty clini lauren pract ice guide line. JCEM. 2010; 96(7) :1911 -30. Not Available [facility] ([facility]) [address] [facility], [place], [address], 10/15/2024 08:26:52 07/24/20 23 07/24/2023 US, pelvi s, trans abdom inal + trans vagin al No observ ation record ed. [facility] [address] [place] [address] [address], [place], [address], 07/29/2023 10:12:53 Result Notes None recorded. Problems No Known Problems Procedures Surgical History Date Name Laterality Status Provider Name and Address Organization Details Recorded Time Cholecystectomy completed Erika quiros [place] - [facility] 01/02/2024 16:02:31 Appendectomy completed Erika [place] - [facility] 01/02/2024 16:02:37 Tonsillectomy completed Erika [place]is [place] - [facility] 01/02/2024 16:02:42 Caesarean Section completed HITESH Smiley [place] - [facility] 01/02/2024 16:02:48 Imaging Results Imaging Date Name Status LastModified by Organization Details LastModified Time 07/24/2023 US, pelvis, transabdominal + transvaginal completed [facility] [address], [place], [address], 07/29/2023 10:12:53 Procedure Notes None recorded. Medical Equipment None Reported. Allergies Allergen ID Allergen Name Allergen Category Reaction Reaction Severity Criticality Documentation Date Start Date Code Code System Note Provider Name and Address Organization Details Recorded Time 324963 Product containin g penicilli n and antibioti c (product) medicatio n Not available Not available Not available 01/02/2024 03187 05 SNOMED Not Available Not Available Not Available Medications Name Sig Start Date Stop Date Status Note LastModified by Organization Details LastModified Time prednisone 10 mg tablet TAKE 2 TABLETS BY MOUTH TWICE DAILY FOR 5 DAYS THEN TAKE 2 TABLETS BY MOUTH DAILY FOR 3 DAYS THEN TAKE 1 TABLET BY MOUTH DAILY FOR 3 DAYS 11/27 completed Not Available Not Available Not Available doxycycline hyclate 100 mg capsule TAKE 1 CAPSULE BY MOUTH TWICE DAILY WITH MEALS FOR 7 DAYS 11/27 completed Not Available Not Available Not Available cefuroxime axetil 250 mg tablet 11/27 completed Not Available Not Available Not Available clindamycin HCl 300 mg capsule TAKE 1 CAPSULE BY MOUTH EVERY 8 HOURS FOR 7 DAYS 10/14 completed Not Available Not Available Not Available azithromyci n 250 mg tablet TAKE 2 TABLETS BY MOUTH FOR 1 DAY THEN TAKE 1 TABLET BY MOUTH DAILY 10/14 completed Not Available Not Available Not Available metronidazo le 0.75 % (37.5 mg/5 gram) vaginal gel INSERT 1 APPLICATO RFUL VAGINALLY AT BEDTIME FOR 5 NIGHTS 11/27 completed Not Available Not Available Not Available famotidine 40 mg tablet 11/27 completed Not Available Not Available Not Available sertraline 100 mg tablet TK ONE T PO QHS active Not Available Not Available No t Available phentermine 37.5 mg tablet TAKE 1 TABLET BY MOUTH EVERY DAY 11/27 completed Not Available Not Available Not Available tramadol 50 mg tablet 11/27 completed Not Available Not Available Not Available alprazolam 0.25 mg tablet TAKE 1 TABLET BY MOUTH DAILY NEEDED FOR ANXIETY active Not Available Not Available No t Available doxycycline monohydrate 100 mg capsule 11/27 completed Not Available Not Available Not Available cephalexin 500 mg capsule 11/27 completed Not Available Not Available Not Available oseltamivir 75 mg capsule TAKE 1 CAPSULE BY MOUTH TWICE DAILY WITH MEALS FOR 5 DAYS 01/01 completed Not Available Not Available Not Available ergocalcife rol (vitamin D2) 1,250 mcg (50,000 unit) capsule TK ONE C PO WEEKLY 07/02 completed Not Available Not Available Not Available cefuroxime axetil 500 mg tablet 11/27 completed Not Available Not Available Not Available methylpredn isolone 4 mg tablets in a dose pack FOLLOW PACKAGE DIRECTION S active Not Available Not Available No t Available hydrocodone 10 mg-chlorphe niramine 8 mg/5 mL oral susp extend.rel 12hr TAKE 5 ML BY MOUTH EVERY 12 HOURS NEEDED FOR COUGH FOR UP TO 5 DAYS 11/27 completed Not Available Not Available Not Available albuterol sulfate HFA 90 mcg/actuati on aerosol inhaler INHALE 2 PUFFS BY MOUTH EVERY 4 TO 6 HOURS NEEDED 11/27 completed Not Available Not Available Not Available hydrocortis one 2.5 % topical ointment APPLY TO AREAS OF ECZEMA ON FACE TWICE DAILY FOR 2 WEEKS THEN STOP 07/02 completed Not Available Not Available Not Available cefdinir 300 mg capsule TAKE 1 CAPSULE BY MOUTH EVERY 12 HOURS FOR 7 DAYS 01/01 completed Not Available Not Available Not Available fluticasone propionate 50 mcg/actuati on nasal spray,suspe nsion SHAKE LIQUID AND USE 2 SPRAYS IN EACH NOSTRIL DAILY 11/27 completed Not Available Not Available Not Available Virtussin AC 10 mg-100 mg/5 mL oral liquid 12/20 completed Not Available Not Available Not Available Nurte ODT 75 mg disintegrat ing tablet active Not Available Not Available N ot Available Fluarix Quad (PF) 60 mcg (15 mcg x 4)/0.5 mL IM syringe ADM 0.5ML IM UTD 11/27 completed Not Available Not Available Not Available BinaxNOW COVID-19 Ag Self Test kit TEST DIRECTED TODAY 11/27 completed Not Available Not Available Not Available Ozempic 2 mg/dose (8 mg/3 mL) subcutaneou s pen injector INJECT 2 MG UNDER THE SKIN EVERY WEEK active Not Available Not Available No t Available Vitals Date Recorded Heart rate Respiratory rate Body temperature Provider Name and Address Organization Details Last Updated DateTime 07/29/2023 87 /min 20 /min 98.2 [degF] LORI Fabian NP Attn: Accounting,[address] [facility], [place], [address], [place] - [place] 07/29/2023 14:23:49 Date Recorded Oxygen saturation Oxygen saturation in Arterial blood by Pulse oximetry Heart rate Respiratory rate Body temperature Systolic blood pressure Diastolic blood pressure Provider Name and Address Organization Details Last Updated DateTime 99 % 99 % 90 /min 18 /min 99 [degF] 124 mm[Hg] 72 mm[Hg] LORI Fabian NP Attn: Ericka g,[address] [place], [address], [place] - [facility] 11:12:50 Date Recorded Body height Oxygen saturation Oxygen saturation in Arterial blood by Pulse oximetry Heart rate Respiratory rate Body temperature Body mass index (BMI) Body weight Systolic blood pressure Diastolic blood pressure Provider Name and Address Organization Details Last Updated DateTime 162.56 cm 98 % 98 % 108 /min 20 /min 99.6 [degF] 38.6 kg/m2 830939. 28 g 124 mm[Hg] 74 mm[Hg] HITESH Smiley [place] - [facility] 15:58:53 Date Recorded Body height Provider Name an d Address Organization Details Last Updated DateTime 07/02/2024 162.56 cm LORI Fabian NP Attn: Accounting,[address] [place], [address], [place] - [facility] 07/02/2024 15:32:29 Date Recorded Body height Provider Name an d Address Organization Details Last Updated DateTime 10/14/2024 162.56 cm LORI Fabian NP Attn: Accounting,[address] [place], [address], [place] [facility] 10/14/2024 09:53:15 Social History Question Answer Notes LastModified by Organizat ion Details LastModified Time Tobacco Smoking Status Never Smoker HITESH Smiley null, [place] - [facility] 01/02/2024 16:02:14 What Was The Date Of Your Most Recent Tobacco Screening? 10/14/2024 Information not available 10/14/2024 Has Tobacco Cessation Counseling Been Provided? No Information not available 01/02/2024 Do You Or Have You Ever Used Any Other Forms Of Tobacco Or Nicotine? No Information not available 01/02/2024 Sex: Unknown Functional Status None recorded. Mental Status None recorded. Family History Relationship Description Onset Age of this Age Resolved Age Notes LastModified by Organization Details LastModified Time Father No current problems or disability [email or web address] Not available 01/01 16:02:07 Mother No current problems or disability [email or web address] Not available 01/01 16:02:07 Medical History Condition Response Coronary Artery Disease N Other N High Blood Pressure N Atrial Fibrillation N Thyroid Problems N Kidney or Bladder Problems N GI Problems N Depression N COPD N Blood Clots N Skin Problems N Eating Disorder N Anemia N Heart Attack (IA) N Anxiety Disorder N Diabetes N Muscle, Joint, or Bone Problems N Arthritis N Seizures/Epilepsy N Acid Reflux (GERD) N Cancer N Stroke N Asthma N Allergies N ADHD N Substance Abuse N High Cholesterol N Hepatitis N Liver Disease N Schizophrenia N Headaches N Heart Failure N Osteoporosis N Gynecological History Statement/Question Response Menses Monthly Y Current Control Method None Date of LMP 12/16/2023 Obstetrics History GPAL:G 0 P 0 0 0 0 Immunizations Vaccine Type Date Status Note Provider Nam e and Address Organization Details Recorded Time Influenza, split virus, quadrivalent, preservative 2 completed LORI Fabian NP Attn: Accounting,[address] [place], [address], [facility] - [facility] 07/16/2022 14:13:06 Influenza, split virus, quadrivalent, PF 3 completed HITESH Smiley null, [place] - [facility] 06/21/2023 18:50:36 Influenza, split virus, trivalent, PF 4 completed Francisca Adorno MA null, [place] - [facility] 07/02/2024 15:34:41 Past Encounters Encounter ID Performer Location Encounter Start Date Encounter Closed Date Diagnosis/Indication Diagnosis SNOMED-CT Code Diagnosis ICD10 Code Diagnosis Note [id number] VIC [facility] [address] [place] [address] 03/07/2020 12:04:13 03/08/2020 09:57:52 Suspected COVID-19 560435698 Z03.818 D/w pt the current pandemic of COVID-19 and call for social isolation in order to blunt the curve and minimize risk and spread. Encouraged patient and family to take restrictio ns seriously. They have verbalized understand ing of such. Viral syndrome 483639938 B34.9 Exposure t o SARS-CoV-2 249436279 Z20.382 [id number] CORTNEY Jones-KOKO [employer] [address] [place] [address] 04/21/2020 14:33:35 04/22/2020 11:42:47 Exposure to SARS-CoV-2 459413017 Z20.493 [id number] Isaura Ana Maria, [facility]- [facility]gan[facility] [address] [place] [address] 09/02/2020 11:47:03 09/05/2020 09:56:34 Viral screening 169964238 Z11.59 Viral syndrome 090663219 B34.9 [id number] LORI Fabian NP [facility] [address] [place] [address] 07/11/2022 15:09:25 08/01/2022 08:39:46 Administration of influenza vaccine 12117115 Z23 [id number] LORI Fabian NP [facility] [address] [place] [address] 02/07/2023 10:22:13 02/21/2023 03:46:43 Adult health examination 459447089 Z00.00 Anemia 402756632 D64.9 -Kala rasmussen is PCP [id number] HITESH Smiley [facility] [address] [place] [address] 06/20/2023 15:34:44 06/26/2023 15:59:16 Administration of influenza vaccine 96212112 Z23 [id number] LORI Fabian NP [facility] [address] [place] [address] 07/24/2023 14:04:44 08/01/2023 13:07:07 Pain in pelvis 03913164 R10.2 -[facility] called for STAT US. Pt is going to go now.-ER referral. Pt declined and would like to avoid ER if possible.- ER precaution s discussed. Pt states she will go if the pain gets worse.-UA normal in SBC. Constipation 23954002 K5 9.00 -To increase fiber-To take miralax. [id number] LORI Fabian NP [facility] [address] [place] [address] 11/27/2023 10:33:44 11/27/2023 10:57:44 Influenza caused by Influenza B virus 22101316 J10.1 -To take as directed.- Will culture swab due to exposure and physical exam.-Incr ease fluid intake-Can use tylenol or ibuprofen for fever or pain-To alert clinic if any new or wosening symptoms. [id number] LORI Fabian NP [facility] [employer] [facility] [employer] [facility] [address] [place] [address] 01/02/2024 15:50:46 01/02/2024 16:17:15 Viral gastroenteritis 530676571 A08.4 -[place] diet.-Incr ease fluid intake-Can use tylenol or ibuprofen for fever or pain-To alert clinic if any new or wosening symptoms. [id number] LORI Fabian NP [facility] [employer] [place] [facility] [employer] [facility] [address] [place] [address] 07/02/2024 15:29:13 07/02/2024 15:36:40 Administration of influenza vaccine 42328964 Z23 [id number] LORI Fabian NP [facility] [employer] [place] [facility] [employer] [address] [place] [address] 10/14/2024 09:47:47 10/24/2024 03:47:54 Adult health examination 759186444 Z00.00 Health Concerns Section Related Observation LastModified by Organization Detai ls LastModified Time None Recorded Concern Status LastModified by Organization Details LastModified Time None Recorded Advance Directives Directive None Recorded Payers Encounter Date Sequence Insurance Name Policy Number Policy Mtz Covered Member ID Mtz Member ID Guarantor Name 07/24/[address] [facility] [id number] Keely Pointer [id number] Keely Pointer 11/27/[address] [facility] [id number] Keely Pointer [id number] Keely Pointer 01/02/[address] [facility] [id number] Keely Pointer [id number] Keely Pointer 07/02/[address] [facility] [id number] Keely Pointer [id number] Keely Pointer 10/14/[address] [facility] [id number] Keely Jesusmarcelo [id number] Keely Анна Notes Date Note Type Note Provider Name and Address Organization Details Recorded Time 07/24/2023 text/html Pelvic PainRepor arun bypatient.Location:l eft; suprapubic Onset/Timin-7 days; sudden Duration:constant Quality:sharp; stabbing Severity:pain level 04/08 Alleviating Factors:none Aggravating Factors:movement Associated Symptoms:no back pain; no chills; no diarrhea; no vaginal discharge; no pain with urination; normal emptying of bladder; no feelings of urgency; no blood in the urine; no fever; no nausea; no vomiting; no nocturia; no sexual abuse; no ectopic pregnancies; no endometriosis; no urinary frequency; no vaginal itching or irritation;abdominal pain;constipation Pt reports intermittent sharp LLQ pain that started about 2 hours ago. Pt reports it will make her bend forward in pain. No urinary symptoms. Possible chance of . LMP: 07/03/23. Feels slightly nauseous due to pain. No vomiting. No rash. No fever. Last BM was 4 days ago. Hard stools. LORI Fabian NP Attn: [employer] , [place], [address], [place] 07/29/2023 14:30:48 11/27/2023 text/html Throat PainRepor arun bypatient.Location: ilateral Quality:sore Severity:mild Onset/Timing:abrupt Associated Symptoms:no stress; no coughing with sputum; no choking; no throat tickle/itch; no globus sensation; no odynophagia; no dysphagia; no burping; no neck/shoulder muscle tension; no weight loss; no fever; no lump in neck; no dyspnea; no daytime somnolence; no ear pain; no ear infection; no nasal congestion; no postnasal drip; no oral mucosal lesion; no hemoptysis;hoarsenes s;loss of appetite Pt into [facility] based [facility] center for sore throat. Pt reports sore throat since last night. Reports symptoms have gotten much worse this AM. No fever. No N/V/D. No rash. Daughter with + flu B. + exposure to strep as well. LORI Fabian NP Attn: Accounting,[address] [facility], [place], [address], [facility] 11/27/2023 11:58:53 01/02/2024 text/html NauseaReported bypatient.Locationdi ffuse Quality:intermittent Severity:mild Onset/Timing:abrupt onset;worse with meals Contextno drug/alcohol abuse; no recent camping; no recent picnic; no possible food sources; no well water;others with similar symptoms Associated Symptoms:no abdominal pain; no excess gas; no cholesterol issues;fever;diarrhe a;vomiting;dry heaves;fatigue;muscl e aches Pt into school based clinic for N/v/D. Pt reports symptoms for the past 3 days. Has been taking ibuprofen to help with symptoms. Diarrhea has been watery. Has been able to tolerate PO fluids well. Low grade temp. Also reports body aches. No abdominal pain. LORI Fabian NP Attn: Accounting,[address] [facility], [place], [address], [facility] 01/06/2024 10:56:11 OBGyn Episode No OBEpisode recorded.
--- OUTSIDE RECORDS SUMMARY | 2024-11-06 08:02 | XMS_ITS | Referral Summary ---
Author Organization [address] Address [address] [place] [address] Care Team Providers Care Film Processing Utility Worker Name Role Phone Curtis Camacho MD Unavailable [phone] Robyn Mata NP Primary Care Provider [phone] Encounters Date Type Department Care Team Description 10/14/2024 4:00 PM WHEELMAN Office Visit [facility] Otolaryngology [address] [place] [address] Juany Dobson NP Tinnitus of right ear (Primary Dx); Dysfunction of right eustachian tube 09/26/2024 3:00 PM WHEELMAN Office Visit [facility] Medical Group [facility] Care at [address] [address] Valarie Funk PA Tinnitus of right ear (Primary Dx) from Last 3 Months Allergies Active Allergy Reactions Criticality Noted Date Comments Ciprofloxacin Itching Medium Penicillins Hives Medium Medications Ozempic 2 mg/dose (8 mg/3 mL) pen injector injectionIndica tions:weight loss Inject 2 mg under the skin once a week Weekly on Saturday 2 Active albuterol HFA (PROVENTIL HFA,VENTOLIN HFA,PROAIR HFA) 90 mcg/actuation inhaler Inhale 2 puffs every 4 (four) hours as needed for wheezing 1 each 2 Active Nurtec ODT tablet,disinteg ratingIndicatio ns:Migraine Place under the tongue as needed 3 Active sertraline (ZOLOFT) 100 mg tablet Take 0.5 tablets (50 mg total) by mouth nightly 3 Active fluticasone propionate (FLONASE) 50 mcg/actuation nasal sprayIndication s:Non-seasonal allergic rhinitis due to pollen SHAKE LIQUID AND USE 2 SPRAYS IN EACH NOSTRIL DAILY 16 g 3 3 Active Additional Information Patient taking differently: 2 spray 2 times daily, Reported on 10/14/2024 fexofenadine (MANJINDER) 180 mg tablet Take 1 tablet (180 mg total) by mouth daily Active iron heme polypep-folic acid 12-1 mg tablet Take 1 tablet by mouth daily with lunch Active ergocalciferol (VITAMIN D) 50,000 unit capsule TK ONE C PO WEEKLY Active predniSONE (DELTASONE) 10 mg tabletIndicatio ns:Dysfunction of right eustachian tube 2 tablets twice daily for 5 days, then 2 tablets daily for 3 days, then 1 tablet daily for 3 days. 29 tablet 5 Active Active Problems Problem Noted Date Diagnosed Date Fluid level behind tympanic membrane of right ea r 10/14/2024 Tinnitus of right ear 10/14/2024 Dysfunction of right eustachian tube 10/14/2024 Hypertrophy of nasal turbinates 10/18/2022 Overview (10/18/2022): Added automatically from request for surgery [id number] Chronic pansinusitis 10/17/2022 Assessment & Plan (05/25/2023 4:25 PM CDT): She is actually healed quite well thus far. I do not see any problems with this. I do not anticipate any further problems either. At this point I do not feel there is any need for further intervention. I did ask her to call if she should have any further sinus problems. Otherwise I will see her as needed. Assessment & Plan (04/16/2023 6:55 PM CDT): I think the bleeding was probably coming from the left inferior turbinate. In any case I did clean a lot of old blood from the left side of the nose and I also debrided old packing from the ethmoid cavities bilaterally. I do not see any active bleeding now. I used a Q-tip to palpate the left inferior turbinate but found no bleeding sites. I recommended that she not take any more nonsteroidals for pain. She can use Tylenol. I also recommended using Afrin spray 3 times a day for the next 3 days. She should stop it afterwards. The plan is for a follow-up in about 4 weeks. Call if there is further bleeding however. Assessment & Plan (04/12/2023 4:33 PM CDT): She appears to be doing well. Her nasal airway looks good. No significant bleeding. No evidence of septal hematoma. She still has some packing in the ethmoid cavities on both sides and I explained that to her. The plan is for a follow-up in about 1-2 weeks. I would like to have her use saline spray daily. She can start blowing her nose and a couple of days. She can resume normal activities in about a week. Assessment & Plan (10/17/2022 5:52 AM WHEELMAN): I reviewed her CT scan with her. She has significant bilateral pansinusitis. She is probably had this for years judging from the appearance of the CT scan. I think she would benefit from endoscopic sinus surgery. I discussed the risk of sinus surgery including the risk of recurrent or persistent disease that may require further revision surgery. There is a risk of orbital injury and COPY DIRECTOR injury which could result in blindness or double vision or brain damage. These risks are quite low. Some risk of permanent anosmia. She indicated that she would like to go ahead and pursue this. She had no questions. Deviated nasal septum 10/17/2022 Assessment & Plan (10/17/2022 5:53 AM WHEELMAN): She also has a deviated nasal septum and enlarged inferior turbinates. I talked with her about that. I think she would benefit from a septoplasty and bilateral inferior turbinectomy. She has a lot of nasal obstruction symptoms. I discussed the risk of a septoplasty with and without turbinectomy with the patient. There is a risk of continued nasal obstruction, bleeding, septal perforation, permanent anosmia. Also risk of inadequate correction which could result in continued nasal obstruction symptoms. She would like to go ahead and pursue this also. We will start working on getting it scheduled. She had no questions.. Seasonal allergies 12/22/2021 Assessment & Plan (12/22/2021 11:32 AM CDT): Continues to Claritin daily. Drink plenty of fluids. Acute non-recurrent maxillary sinusitis 12/23/19 Assessment & Plan (12/22/2021 11:33 AM CDT): Doxycycline 100 mg b.i.d. for 10 days. Sudafed 4 hour take as needed. Use saline nasal spray to keep moisture in the nose. Drink plenty of fluids. Follow-up with your provider if you do not improve. Common bile duct calculus 04/05/2016 Vertigo 07/14/2015 Overview (01/10/2017): Vertigo Abdominal pain 05/27/2015 Immunizations Name Administration Dates Next Due Moderna SARS-CoV-2 Monovalent Vaccination (12+ Y RS) 11/09/2020 Pfizer SARS-CoV-2 Monovalent Vaccination (12+ Yrs) PURPLE 11/29/2020 Social History Tobacco Use Types Packs/Day Years Used Date Smoking Tobacco: Never Smokeless Tobacco: Never AUDIT-C Answer Date Recorded Q1: How often do you have a drink containing alc ohol? Monthly or less 04/08/2023 Average Number of Drinks Not on file 023 Frequency of Binge Drinking Not on file 03/30 Personal Safety Answer Date Recorded Have you ever been in or are you currently in a harmful physical or emotional relationship or is someone making you feel afraid or unsafe? Denies 04/08/2023 Comments No Sex and Gender Information Value Date Recorded Sex Assigned at Not on file Legal Sex Female 2:03 PM WHEELMAN Gender Identity Not on file Sexual Orientation Not on file Last Filed Vital Signs Vital Sign Reading Time Taken Comments Blood Pressure 130/87 09/26/2024 2:57 PM WHEELMAN Pulse 76 09/26/2024 2:57 PM WHEELMAN Temperature 36.7 C (98.1 F) 09/26/2024 2:57 PM WHEELMAN Respiratory Rate 18 10/14/2024 4:04 PM WHEELMAN Oxygen Saturation 99% 09/26/2024 2:57 PM WHEELMAN Inhaled Oxygen Concentration - - Weight 98.9 kg (218 lb) 10/14/2024 4:04 PM WHEELMAN Height 162.6 cm (5' 4 ) 10/14/2024 4:04 PM WHEELMAN Body Mass Index 37.42 10/14/2024 4:04 PM WHEELMAN Plan of Treatment Not on file Procedures Procedure Name Priority Date/Time Associated Diagnosis Comments SCREENING MAMMOGRAM BILATERAL W ELIEZER Schedule Routine, Read Routine (OP Routine) 05/09/2019 10:52 AM CDT Encounter for screening mammogram for malignant neoplasm of breast from Last 3 Months or Most Recently Relevant to Health Maintenance Results * Screening Mammogram Bilateral W Eliezer (05/09/2019 10:52 AM CDT) Anatomical Region Laterality Modality Breast Bilateral Mammography 05/09/2019 11:2 6 AM CDT Impressions 05/09/2019 11:27 AM CDT BI-RADS CATEGORY I: NEGATIVE EXAM. RECOMMEND ROUTINE FOLLOW-UP. Electronically signed by: Obi Mcdoanld M.D. Narrative 05/09/2019 11:27 AM CDT SCREENING MAMMOGRAM BILATERAL W ELIEZER HISTORY: Routine screening, no current complaints. COMPARISON: 01/13/2018 FINDINGS: Breast density: Scattered fibroglandular densities. There has been no significant interval change. There are no suspicious masses, microcalcifications, or architectural distortions. Tomographic images demonstrate no additional findings. Digital technology was employed plus computer aided detection software (R2) was utilized in interpretation of these images. This facility utilizes a reminder system to notify patient's of yearly mammograms. [facility] MAMMO PROCEDURES Final Result from Last 3 Months or Most Recently Relevant to Health Maintenance Insurance [facility] CHOICE PLUS [employer] CHOICE PLUS CHOICE PLUS Care Teams Film Processing Utility Worker Relationship Specialty Start Date End Date Robyn Mata NP [address] [place] [address] PCP - General Nurse Practitioner 09/21/24 Curtis Camacho MD [address] [place] [address] Consulting Physician Otolaryngology 04/08/23
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
== END 2024-11-06 07:57 | disposition home or self-care (01) ==
LOC: ANHIMG 07:58
PROVIDERS: PCP Nurse Practitioner Adult Health; Visit Provider Student in an Organized Health Care Education/Training Program
DX: Z12.31 Encounter for screening mammogram for malignant neoplasm of breast (principal)
CPT/HCPCS: 77063; 77067

== ENCOUNTER 2025-06-15 11:19 | Outpatient (CLI) | payer OTHER, SELFPAY ==
--- NOTE | ~2025-06-15 | XR_ITS ---
XR sinus min 3V Indication: J32.9 - Chronic sinusitis, unspecified Comparison: None Technique: 3 view. Findings: No acute fracture or malalignment. No significant degenerative changes. Soft tissues demonstrate no significant sinusitis Impression: No sinusitis identified Reviewed, dictated and finalized at location A. Impression: No sinusitis identified
--- OUTSIDE RECORDS SUMMARY | 2025-06-15 13:22 | XMS_ITS | Clinical Summary ---
Author Organization [address] Address [address] [place] [phone] Care Team Providers Care Sales Associate Key Holder Name Role Phone Curtis Camacho MD Unavailable [phone] Robyn Mata NP Primary Care Provider Allergies Active Allergy Reactions Criticality Noted Date [...] for 3 days. 29 tablet 5 Active doxycycline (VIBRAMYCIN) 100 mg capsule Take 1 tablet/capsule (100 mg total) by mouth 2 (two) times a day for 7 days 14 tablet/capsu le 5 06/19/20 25 Active Active Problems Problem Noted Date Diagnosed Date Fluid level behind tympanic membrane of right ea r 10/14/2024 Tinnitus of right ear 10/14/2024 Dysfunction of right eustachian tube 10/14/2024 Hypertrophy of nasal turbinates 10/18/2022 Overview (10/18/2022): Added automatically from request for surgery [id number] Chronic pansinusitis 10/17/2022 Assessment & Plan (05/25/2023 [...] week. Assessment & Plan (10/17/2022 5:52 AM OUTBOARD SYSTEM OPERATOR): I reviewed her CT scan with her. [...] is a risk of orbital injury and COMPUTER ANALYST SUPERVISOR injury which could result in blindness or double vision or brain damage. These risks are quite low. Some risk of permanent anosmia. She indicated that she would like to go ahead and pursue this. She had no questions. Deviated nasal septum 10/17/2022 Assessment & Plan (10/17/2022 5:53 AM OUTBOARD SYSTEM OPERATOR): She also has a deviated nasal septum [...] of fluids. Acute non-recurrent maxillary sinusitis 12/23/19 22 Assessment & Plan (12/22/2021 11:33 AM CDT): Doxycycline 100 mg b.i.d. for 10 days. Sudafed 4 hour take as needed. Use saline nasal spray to keep moisture in the nose. Drink plenty of fluids. Follow-up with your provider if you do not improve. Common bile duct calculus 04/05/2016 Vertigo 07/14/2015 Overview (01/10/2017): Vertigo Abdominal pain 05/27/2015 Encounters Date Type Department Care Team Description 06/12/2025 5:00 PM CDT Office Visit [facility] Care at [address] [phone] Maximo Maynard NP Acute pansinusitis, recurrence not specified (Primary Dx); Elevated blood pressure reading in office without diagnosis of hypertension from Last 3 Months Immunizations Immunization Administration Dates Next Due Moderna SARS-CoV-2 Monovalent Vaccination (12+ Y RS) 11/09/2020 Pfizer SARS-CoV-2 Monovalent Vaccination (12+ Yrs) PURPLE 11/29/2020 Surgical History Surgery Date Site/Laterality Comments APPENDECTOMY CHOLECYSTECTOMY [id number] SECTION [id number] TONSILLECTOMY DILATION AND CURETTAGE OF UTERUS SINUS [...] days ago 03/06/23 Nosebleed Ear problems Tinnitus Migraines Family History Medical History Relation Name Comments Allergy (severe) Father Dad Celiac disease Father Dad Hypertension Father Dad Prostate cancer Father Dad Relation Name Status Comments Father Dad Alive Social History Tobacco Use Types Packs/Day Years Used Date Smoking Tobacco: Never Smokeless Tobacco: Never Tobacco Cessation:Counseling Given: Not Answered AUDIT-C Answer Date Recorded Q1: How often [...] on file Legal Sex Female 2:03 PM OUTBOARD SYSTEM OPERATOR Gender Identity Not on file Sexual Orientation Not on file Obstetrics History Para Term AB IAB SAB Ectopic Multiple Livin g Live Births 3 1 1 Date Outcome GA Total Labor Labor/3rd Weight Sex Type Anes PTL Shivani A1 A5 Name Clin Term Last Filed Vital Signs Vital Sign Reading Time Taken Comments Blood Pressure 141/88 06/12/2025 5:04 PM CDT Pulse 79 06/12/2025 5:04 PM CDT Temperature 36.6 C (97.9 F) 06/12/2025 5:04 PM CDT Respiratory Rate 20 06/12/2025 5:04 PM CDT Oxygen Saturation 99% 06/12/2025 5:04 PM CDT Inhaled Oxygen Concentration - - Weight 112.5 kg (248 lb) 06/12/2025 5:04 PM CDT Height 162.6 cm (5' 4) 10/14/2024 4:04 PM OUTBOARD SYSTEM OPERATOR Body Mass Index 42.57 10/14/2024 4:04 PM OUTBOARD SYSTEM OPERATOR Plan of Treatment Health Maintenance Due Date Last Done Comments Cervical Cancer Screening 1977 Colon Cancer Screening-Colonoscopy 1977 Depression Screening 1977 Hepatitis C Screening 1977 Hepatitis B Screening 1995 Regular Well Visit/Exam 18-64 1995 Breast Cancer Screening-Mammogram 05/09/2020 05/09/2019, 01/20/2018, 01/13/2018 DTaP/Tdap/Td Vaccine (2 - Td or Tdap) 12/12/2024 12/12/2014 Covid-19 Vaccine ( - season) 2025 11/29/2020, 11/09/2020 Influenza Vaccine (#1) 2025 , 06/20/2023, 07/11/2022, Additional history exists Pneumococcal vaccine <65 [...] Most Recently Relevant to Health Maintenance Insurance [facility] CHOICE PLUS [facility] CHOICE PLUS CHOICE PLUS Care Teams Sales Associate Key Holder Relationship Specialty Start Date End Date Robyn Mata NP [address] [place] [address] PCP - General Nurse Practitioner 09/21/24 Curtis Camacho MD [address] [place] [address] Consulting Physician Otolaryngology 04/08/23
--- OUTSIDE RECORDS SUMMARY | 2025-06-15 13:22 | XMS_ITS | Clinical Summary ---
Author Organization [facility] Address [address] [place] [address] Phone Care Team Providers Care Bicycle Fitter Name Role Phone Kunal Sims MD Primary Care Provider [phone] Allergies Active Allergy Reactions Criticality Noted Date [...] on file Legal Sex Female 1:32 PM CURTAIN CUTTER Gender Identity Not on file Sexual Orientation Not on file Last Filed Vital Signs Vital Sign Reading Time Taken Comments Blood Pressure 152/102 09/16/2021 3:11 PM CURTAIN CUTTER Pulse 113 09/16/2021 3:00 PM CURTAIN CUTTER Temperature 37.1 C (98.8 F) 09/16/2021 3:00 PM CURTAIN CUTTER Respiratory Rate 18 09/16/2021 3:00 PM CURTAIN CUTTER Oxygen Saturation 99% 09/16/2021 3:00 PM CURTAIN CUTTER Inhaled Oxygen Concentration - - Weight 117.9 kg (260 lb) 03/05/2019 2:17 PM CDT Height 162.6 cm (5' 4) 03/05/2019 2:17 PM CDT Body Mass Index 44.63 03/05/2019 2:17 PM CDT Plan of Treatment Health Maintenance Due Date Last Done Comments Hepatitis C Virus (HCV) Screening 1977 Hepatitis B Immunization (1 of 3 - 19+ 3-dose series) 1996 Pap Smear 1998 Cervical Cancer Screening (CCS) 2007 HPV/Cotest 2007 Cologuard 2022 Colonoscopy 2022 Colorectal Cancer Screening 2022 Immunochemical Fecal Occult Blood 2022 Influenza Immunization (#1) 05/31/202506/30, 07/23/2017, 07/02/2016, Additional history exists SARS-COV-2 Immunization ( season) 2025 09/12/2021, 12/17/2020, 11/29/2020, Additional history exists Respiratory Syncytial Virus (RSV) Immunization (Adult) (1 - 1-dose 75+ series) 2052 DTaP/Tdap/Td Immunization Discontinued 12/12/2014 TdaP Immunization Completed 12/12/2014 Human Papillomavirus (HPV) Immunization Aged Out No longer eligible based on patient's age to complete this topic Meningococcal Immunization (ACWY) Aged Out No longer eligible based on patient's age to complete this topic Pneumococcal Immunization Combined Aged Out No longer eligible based on patient's age to complete this topic Rotavirus Immunization Aged Out No lo nger eligible based on patient's age to complete this topic Care Teams Bicycle Fitter Relationship Specialty [place] [address] [address] [facility] [place] [address] PCP - General Internal Medicine 03/05/19
--- OUTSIDE RECORDS SUMMARY | 2025-06-15 13:22 | XMS_ITS | Clinical Summary ---
Author Organization [facility] Address [address] [place] [address] [place] [address] Care Team Providers Care Horticultural Specialty Grower Field Name Role Phone Kunal Sims MD Primary Care Provider [phone] Allergies Active Allergy Reactions Criticality Noted Date [...] 9:22 AM CDT Height 162.6 cm (5' 4) 04/18/2018 9:22 AM CDT Body Mass Index 48.71 04/18/2018 9:22 AM CDT Plan of Treatment Health Maintenance Due Date Last Done Comments DTAP/TDAP/TD VACCINES (1 - Tdap) 1996 HEPATITIS B VACCINES (1 of 3 - 19+ 3-dose series) 09/01 HPV/Cotest (21-29) 1998 CERVICAL CANCER SCREENING 2007 HPV/Cotest (30-65) 2007 PAP SMEAR 2007 BREAST CANCER SCREENING 01/20/2019 01/20/2018 COLORECTAL SCREENING 2022 Colorectal Cancer Screening 2022 FIT-DNA Q 3 years 2022 FIT/FOBT Q 1 year 2022 Flex Sig/CT Colonography Q 5 years 2022 INFLUENZA VACCINE (#1) 2025 Procedures Procedure Name Priority Date/Time Associated Diagnosis Comments MAMMO 3D EVE DIAGNOSTIC EMMANUELLE AT W OR WO CAD Routine 01/20/2018 from Last 3 Months or Most Recently Relevant to Health Maintenance Results * MAMMO DIAG BILAT 3D EVE W OR WO CAD (01/20/2018) Anatomical Region Laterality Modality Breast Bilateral Mammography us Abstract Provider MAMMO ORDERABLES Final Result from Last 3 Months or Most Recently Relevant to Health Maintenance Care Teams Horticultural Specialty Grower Field Relationship Specialty Start Date End Date Kunal Sims MD PCP - General Internal Medicine 04/18/18
== END 2025-06-15 11:20 | disposition home or self-care (01) ==
PROVIDERS: PCP Nurse Practitioner Adult Health; Visit Provider Nurse Practitioner Adult Health
DX: J32.9 Chronic sinusitis, unspecified (principal)
CPT/HCPCS: 70220

== ENCOUNTER 2025-07-19 14:10 | Outpatient (CLI) | payer OTHER, SELFPAY ==
--- NOTE | ~2025-07-19 | CT_ITS ---
EXAMINATION: CT brain wo con COMPARISON: None HISTORY: R51.9 - Headache, unspecified TECHNIQUE: Axial images were obtained through the brain without IV contrast. CT scan performed using dose optimization techniques including the following automated exposure control; adjustment of mA and/or kV; use of iterative reconstruction technique. Automatic exposure control was used to reduce radiation dose. Permanent radiation dose record is archived to PACS. FINDINGS: No acute infarct or parenchymal hemorrhage. No abnormal mass or mass effect. No midline shift. No extra-axial fluid collections. No hydrocephalus. . Mastoid air cells unremarkable. Sinuses and orbits unremarkable. No acute fracture. No significant facial or scalp soft tissue swelling evident. No radiopaque foreign body is seen. Impression: 1.No acute intracranial abnormality. Reviewed, dictated and finalized at location P. Impression: 1.No acute intracranial abnormality.
--- OUTSIDE RECORDS SUMMARY | 2025-07-19 16:21 | XMS_ITS | Data Portability ---
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 [email or web address] Not available 07/19/2023 09:16:01 08/17/2024 08/17/2024 Annual gynecological exam performed. Patient will come back in a year unless there are new symptoms. [email or web address] Not available 08/12/2024 10:52:46 Plan of Treatment Reminders Order Date Submit Date Provider Last Modified By Organization Details Last Modified Time Details Appointments None recorded. Lab pap, IG + HR HPV - HPV regardless but if HPV is positive need subtyping 16,18/[address]/GC/Trich 2023 024 [facility] (Lab), [address], [place], [address], 4 10:09:42 Referral None recorded. Procedures None recorded. Surgeries None recorded. Imaging MAMMO, screening, digital, bilateral 2023 024 [facility], [address], [place], [address], 5 05:01:06 MAMMO, screening, bilateral [address] [facility], [address], [place], [address], 4 16:16:26 MAMMO, diagnostic, digital, bilateral 2019 020 [facility], [facility], [place], [address], 0 19:38:38 US, breast, unilateral 2019 020 [facility], [facility], [place], [address], 1 05:02:42 Medication Orders None recorded. Patient TargetsNo targets recorded. Patient Instructions Encounter Date Encounter Id Patient Instructions Last Modified By Organization Details Last Modified Time 05/28/2020 [id number] [email or web address] Not available 12:29:04 Reason for Referral None Reported. Results Created Date Observation Date Name Description Value Unit Range Abnormal Flag Note LastModifiedBy Organization Detail LastModifiedTime 05/30/20 20 06/01/2020 pap, LB Pap test thin prep Negati ve for Intrae pithel ial Lesion or Malign lashay normal ACCES DARIO #: [id number] Sourc e: Cervi tony/E ndoce rvica l LMP: 72-2 020 Date Taken : 05/30 Speci men [...] and labor atory findi ngs. See https ://[employer]/s ites/ defau lt/fi les/2 018-0 3/AW- 28308 _002_ 01.pd f for furth er infor matio n. Test perfo rmed by [facility], d/b/a [facility] genevieve, [address], [place] [address] , Blanca Jackson ra, DO, Labor atory Direc tor. HPV High Risk *HPV NOT DETEC ARNU (TYPE S 16, 18, 31, 33, 35, 39, 45, 51, 52, 56, 58, 59, 66, 68) *HPV: The human papil lomav irus (HPV) High Risk Juan Alberto ding is an FDA-a pprov ed in-vi tro ampli fied nucle ic acid test for the quali tativ e detec tion of E6/E7 viral mRNA. [facility] ts shoul d be corre lated with patie nt prese ntati on, histo ry, cervi tony cytol ogy and other clini tony and labor atory findi ngs. See https ://[employer]/s ites/ defau lt/fi les/2 018-0 3AW- 33122 _002_ 01.pd f for julianalydia robertson infor cale ding. Test perfo rmed by [facility], d/b/a Path [employer], [address], [place] [address] , Blanca Jackson ra, DO, Labor atory Direc tor. End of t Techn ical servi al provi ded by [employer] [facility], d/b/a [facility], [address] [place] [address] ePña Carranza MD, Labor ator Dire tor. Case revie wed and diagn osis rende red at [facility], d/b/a Path [employer], [address] [place] [address] Peña Carranza MD, Labor atory Dire tor. CONFI DENTI AL Not Available [facility] ([facility]) [address], [place], [address], 06/01/2020 11:42:58 05/30/20 20 06/01/2020 CT + [...] ing error . Test perfo rmed by [employer] [facility], d/b/a [facility] rou, [address], [place] [address] , Blanca Jackson ra, DO, Labor atory Direc tor. Not Available [facility] ([facility]) [address] [place] [address] [address], [place], [address], 06/01/2020 11:42:59 05/30/20 20 06/01/2020 CT + [...] ing error . Test perfo rmed by [employer] [facility], d/b/a PathG roup, [address], [place] [address] , Blanca Jackson ra, , Labor atory Direc tor. Not Available [facility] ([facility]) [address] [place] [address], [place], [address], 06/01/2020 11:42:59 05/30/20 20 06/01/2020 CT + [...] ing error . Test perfo rmed by [facility] [facility] Patho logis [employer] [employer], d/b/a Keenan [facility]le[facility], [address] [facility] [address], [place] [address] , Blanca Jackson ra, DO, Labor atory Dire tor. Not Available [facility] [[email or web address]] -[facility] ([facility]) [address] [facility] [address], [place], [address], 06/01/2020 11:42:59 05/30/20 20 06/01/2020 HPV DNA, [...] and labor atory findi ngs. See https ://ww [employer]/s ites/ defmendoza lt/fi les/2 018-0 3/AW- 76364 _002_ 01.pd f for popeye robertson infor cale n. Test perfo rmed by [facility], d/b/a PathLalita carlosadilson, [address], [place] [address] , Blanca Jackson ra, DO, Labor [facility] tor. Not Available [facility] -[facility] ([facility]) [address], [place], [address], 06/01/2020 11:42:59 05/31/20 21 05/31/2021 IMAGE GUIDE D PAP AND HPV REGAR DLESS image guided Pap, HPV regardless of Pap result SEE RESULT S BELOW CASE REPOR T: Cytol ogy Gynec ologi tony Repor t Case: [id number] Autho jame celis Provi ajith: Anuel Lo Colle cted: 05/31 1110 PRODUCT AMBASSADOR Order ing Locat ion: [place] Patho logy [...] as clini teressa langford nted. Not Available [facility] (Lab) [address], [place], [address], 06/03/2021 17:22:34 05/31/20 21 05/31/2021 TRICH OMONA S VAGIN CLAU (RRNA ) trichomonas vaginalis ribosomal RNA (rrna) Negati ve negati ve Not Available [facility] (Lab) [address], [place], [address], 06/03/2021 17:22:35 05/31/20 21 05/31/2021 CT/GC (ROM) , THINP REP VIAL chlamydia trachomatis, PCR Negati ve negati ve Not Available [facility] (Lab) [address], [place], [address], 06/03/2021 17:22:35 05/31/20 21 05/31/2021 CT/GC (ROM) , THINP REP VIAL neisseria gonorrhoeae, PCR Negati ve negati ve Not Available [facility] (Lab) [address], [place], [address], 06/03/2021 17:22:35 06/06/20 22 06/06/2022 IMAGE GUIDE D PAP AND HPV REGAR DLESS image guided Pap, HPV regardless of Pap result SEE RESULT S BELOW CASE REPOR T: Cytol ogy Gynec ologi tony Repor t Case: [id number] Autho jame celis Provi ajith: Anuel Lo Colle cted: 06/06 1626 PRODUCT AMBASSADOR Order ing Locat ion: [place] Patho logy Recei hanna: 06/07 0717 First Scree n: Edgard Flynn am, CT Speci men: Juan Alberto tijerina Pap - Image d, Cervi x STATE [...] langford nted. Not Available [facility] [address] [place], [address], 06/12/2022 14:06:04 06/06/20 22 06/06/2022 TRICH OMONA S VAGIN CLAU (RRNA ) trichomonas vaginalis ribosomal RNA (rrna) NEGATI VE negati ve Not Available [facility] [address] [facility], [place], [address], 06/12/2022 14:06:05 06/06/20 22 06/06/2022 CT/GC (ROM) , THINP REP VIAL chlamydia trachomatis, PCR NEGATI VE negati ve Not Available [facility] [address], [place], [address], 06/12/2022 14:06:05 06/06/20 22 06/06/2022 CT/GC (ROM) , THINP REP VIAL neisseria gonorrhoeae, PCR NEGATI VE negati ve Not Available [facility] [address] [place], [address], 06/12/2022 14:06:05 07/19/20 23 07/19/2023 IMAGE GUIDE D PAP AND HPV REGAR DLESS image guided Pap, HPV regardless of Pap result SEE RESULT S BELOW CASE REPOR T: Cytol ogy Gynec ologi tony Repor t Case: [id number] Autho zarisilvia lalita Provi ajith: Anuel Lo Colle cted: 07/19 1451 PRODUCT AMBASSADOR Order ing Locat ion: [place] Patho logy Recei hanna: 07/22 0847 First Scree n: Leandro velásquez, Shawna Rescr een: Scot farah, Zachariah de la cruz, [...] as clini teressa langford nted. Not Available [facility] (Lab) [address], [place], [address], 07/24/2023 21:27:48 07/19/20 23 07/19/2023 TRICH OMONA S VAGIN CLAU (RRNA ) trichomonas vaginalis ribosomal RNA (rrna) Negati ve negati ve Not Available [facility] (Lab) [address], [place], [address], 07/24/2023 21:27:49 07/19/20 23 07/19/2023 CT/GC (ROM) , THINP REP VIAL chlamydia trachomatis, PCR Negati ve negati ve Not Available [facility] (Lab) [address] [facility], [place], [address], 07/24/2023 21:27:49 07/19/20 23 07/19/2023 CT/GC (ROM) , THINP REP VIAL neisseria gonorrhoeae, PCR Negati ve negati ve Not Available [facility] (Lab) [address] [facility], [place], [address], 07/24/2023 21:27:49 08/17/20 24 08/17/2024 IMAGE GUIDE D PAP AND HPV REGAR DLESS image guided Pap, HPV regardless of Pap result SEE RESULT S BELOW CASE REPOR T: Cytol ogy Gynec ologi tony Repor t Case: [id number] Autho jaem celis Provi ajith: Dermo dy, Kendall , ANP, REAL ESTATE OFFICE SUPERVISOR Colle cted: 08/17 1035 Order ing Locat ion: [place] Patho logy Recei hanna: 08/18 1244 First Scree n: Iliana Bruno, CT Speci men: Cesarjairo tijerina Pap - Image d, Cervi x STATE [...] of bacte rial vagin osis. Elect devonte ford by Iliana Bruno, CT on 08/26 at [...] is recom karen d, as clini teressa warra nted. Not Available [facility] (Lab) [address] [facility], [place], [address], 08/26/2024 10:09:42 08/17/20 24 08/17/2024 TRICH OMONA S VAGIN CLAU (RRNA ) trichomonas vaginalis ribosomal RNA (rrna) Negati ve negati ve Not Available [facility] (Lab) [address] [facility], [place], [address], 08/26/2024 10:09:43 08/17/20 24 08/17/2024 CT/GC (ROM) , THINP REP VIAL chlamydia trachomatis, PCR Negati ve negati ve Not Available [facility] (Lab) [address] [facility], [place], [address], 08/26/2024 10:09:43 08/17/20 24 08/17/2024 CT/GC (ROM) , THINP REP VIAL neisseria gonorrhoeae, PCR Negati ve negati ve Not Available [facility] (Lab) [address] [facility], [place], [address], 08/26/2024 10:09:43 05/31/20 20 05/31/2020 MAMMO , diagn ostic , digit al, bilat eral No observ ation record ed. [facility] (Imaging) [address] [facility] [address] [place] [address], [address], 06/09/2020 10:51:38 07/20/20 21 MAMMO juan alberto, bilat eral No observ ation record ed. [facility] [address] [facility] [address], [address], 07/27/2021 08:34:18 08/15/20 22 MAMMO juan alberto, bilat eral No observ ation record ed. [address] [facility] [address] [facility] [address], [address], 07/19/2023 09:29:31 1007/24/2023 imagi ng/di agnos tic resul t No observ ation record ed. [facility] [address], [place], [address], 08/06/2023 12:14:14 Result Notes None recorded. Problems Name Problem SNOMED Code Status Onset Date Resolution Date Notes Provider Name and Address Organization Details Recorded Time Ill-defi stephanie intestin al infectio n Completed 201105/30/2021 No Show Fee;Prac maxwell ID: 0001 Josselyn Anne [facility] 1 17:40:52 Screenin g for malignan t neoplasm of cervix Completed 201101/13/2013 Screenin g for malignan t neoplasm s of the cervix;R ecorded Elsewher e: No Locat ion: [facility] S ource: EHR Apiculturist ruth: N Practi ce ID: 0001 David lable Time: 02:00:00 PM Josselyn [facility] 1 17:41:22 Speciali zed medical examinat ion Completed 201101/13/2013 Gynecolo gical Examinat ion;Ramírez rded Elsewher e: No Locat ion: [facility] S ource: EHR Apiculturist ruth: N Practi ce ID: 0001 David lable Time: 02:00:00 PM Josselyn Anne [facility] 1 17:41:30 Removal of intraute rine device Completed 201101/13/2013 REMOVAL OF IUD;Ramírez rded Elsewher e: No Locat ion: [facility] S ource: EHR Apiculturist ruth: N Practi ce ID: 0001 David lable Time: 03:45:00 PM Josselyn Anne [facility] 1 17:41:16 Insertio n of intraute rine contrace ptive device Completed 201101/13/2013 INSERTIO N OF IUD;Ramírez rded Elsewher e: No [facility]at [facility] S ource: EHR Apiculturist ruth: N Practi ce ID: 0001 David lable Time: 03:15:00 PM Not Available [facility] 0 17:10:07 Pregnanc y test negative [id number] Completed 201101/13/2013 Pregnanc y examinat ion or test, negative result;R ecorded Elsewher e: No Locat ion: [facility] S ource: EHR Apiculturist ruth: N Practi ce ID: 0001 David lable Time: 03:15:00 PM Josselyngayla sanford [facility] 1 17:41:11 Neoplasm of uncertai n behavior of skin [id number] Completed 201101/13/2013 Neoplasm of uncertai n behavior of skin;Rec orded Elsewher e: No Locat ion: [facility] S ource: EHR Apiculturist ruth: N Practi ce ID: 0001 David lable Time: 03:30:00 PM Not Available [facility] 0 17:10:13 Family planning surveill ance Completed 201101/13/2013 Contrace ptive surveill ance, unspecif ied;Ramírez rded Elsewher e: No Locat ion: [facility] S ource: EHR Apiculturist ruth: N Practi ce ID: 0001 David lable Time: 03:30:00 PM Not Available [facility] 0 17:10:14 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 1 17:41:38 Pregnanc y test negative [id number] Completed 201105/30/2021 Negative Pregnanc y Test;Pra ctice ID: 0001 [facility] 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 17:40:34 Benign neoplasm of vulva 02245122 Completed 201105/30/2021 Benign neoplasm of vulva;Re corded Elsewher e: No Locat ion: [facility] S ource: EHR Apiculturist ruth: N Practi ce ID: 0001 David lable Time: 09:30:00 AM Josselyn Schulte [facility] 17:40:31 Speciali zed medical examinat ion Completed 201205/30/2021 Routine gynecolo gical examinat ion;Prac maxwell ID: 0001 Josselyn Schulte [facility] 17:41:30 Screenin g for malignan t neoplasm of cervix Completed 201205/30/2021 Pap Smear;Pr actice ID: 0001 Josselyn Schulte [facility], [facility] 17:41:22 Reproduc tive care manageme nt Completed 201205/30/2021 Unspecif ied procreat alessandro manageme nt;Pract ice ID: 0001 Josselyn Schulte [facility] 17:41:18 Removal of intraute rine device Completed 201205/30/2021 REMOVAL OF IUD;Prac maxwell ID: 0001 Josselyn Schulte [facility] 17:41:16 Female infertil ity associat ed with anovulat ion [id number] Completed 201205/30/2021 Infertil ity, female, associat ed with anovulat ion;Prac maxwell ID: 0001 Josselyn sanford, [facility] 17:40:42 Amenorrh ea [id number] Completed 201205/30/2021 AMENORRH EA;Pract ice ID: 0001 Josselyn sanford [facility] 17:40:26 Pregnanc y test positive 306896648 Completed 201205/30/2021 Positive Pregnanc y Test;Pra ctice ID: 0001 Josselyn sanford, [facility] 17:41:13 Threaten ed miscarri age 16785624 Completed 201205/30/2021 Threaten ed , antepart um;Pract ice ID: 0001 Josselyn sanford [facility] 17:41:31 Incomple te [id number] Completed 201205/30/2021 Spontane ous , incomple te, without mention of complica tion;Pra ctice ID: 0001 Josselyn sanford, [facility] 17:40:54 Missed miscarri age 79966487 Completed 201205/30/2021 Missed ;Practic e ID: 0001 Josselyn sanford, [facility] 17:41:01 Malaise and fatigue 114691655 Completed 201305/30/2021 Fatigue And Malaise; Practice ID: 0001 Josselyn sanford, [facility] 17:40:58 Depressi ve disorder 85002496 Completed 201305/30/2021 Depressi on;Recor ded Elsewher e: No Locat ion: Shaylee gill [facility] S ource: EHR Apiculturist ruth: N Practi ce ID: 0001 David lable Time: 05:00:00 PM Josselyn Schulte [facility] 17:40:41 Microsco pic hematuri a [id number] Completed 201305/30/2021 MICROSCO PIC HEMATURI A;Record ed Elsewher e: No Locat ion: Shaylee [facility] S ource: EHR Apiculturist ruth: N Practi ce ID: 0001 David lable Time: 04:00:00 PM Josselyn Schulte [facility] 17:40:59 Urinary tract infectio us disease 00220080 Completed 201305/30/2021 Urinary Tract Infectio n;Record ed Elsewher e: No Locat ion: [facility] S ource: EHR Apiculturist ruth: N Practi ce ID: 0001 David lable Time: 04:00:00 PM Josselyn Schulte [facility] 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 17:40:45 History of recurren t miscarri age - not delivere d 800043939 Completed 201305/30/2021 Habitual aborter, antepart um conditio n or complica tion;Pra ctice ID: 0001 Josselyn Schulte [facility] 17:40:47 Acute upper respirat ory infectio n [id number] Completed 201305/30/2021 URI;Ramírez rded Elsewher e: No [facility]: EHR Apiculturist ruth: N Practi ce ID: 0001 David lable Time: 12:15:00 PM Josselyn Schulte [facility] 17:40:25 Primigra mahad [id number] Completed 201305/30/2021 Supervis ion of normal first pregnanc y;Record ed Elsewher e: No Locat ion: [facility] S ource: EHR Apiculturist ruth: N Practi ce ID: 0001 David lable Time: 08:45:00 AM Josselyn Schulte [facility] 17:41:14 Acute sinusiti s 64449272 Completed 201305/30/2021 Acute infectio n of sinus;Re corded Elsewher e: No Locat ion: [facility] S ource: EHR Apiculturist ruth: N Practi ce ID: 0001 David lable Time: 09:15:00 AM Josselyn Schulte [facility] 17:40:22 anatomy study Completed 201405/30/2021 [facility] ANATMC SURVEY;R ecorded Elsewher e: No Locat ion: [facility] S ource: EHR Apiculturist ruth: N Practi ce ID: 0001 David lable Time: 08:15:00 AM Josselyn Schulte [facility] 17:40:44 Ultrason ography Completed 201405/30/2021 Antenata l screenin g for malforma tion using ultrason ics;Prac maxwell ID: 0001 Josselyn Schulte [facility] 17:41:35 Antenata l screenin g Completed 201405/30/2021 Antenata l screenin g for malforma tion using ultrason ics;Prac maxwell ID: 0001 Josselyn Schulte [facility] 17:40:28 Congenit al malforma tion [id number] Completed 201405/30/2021 Antenata l screenin g for malforma tion using ultrason ics;Prac maxwell ID: 0001 Josselyn Schulte [facility], [facility] 17:40:39 Antenata l ultrasou nd scan for slow growth 943470209 Completed 201405/30/2021 Antenata l screenin g for growth retardat ion using ultrason ics;Ramírez rded Elsewher e: No Locat ion: [facility] S ource: EHR Apiculturist ruth: N Practi ce ID: 0001 David lable Time: 11:00:00 AM [facility] 17:40:29 Morbid obesity 130942219 Completed 201405/30/2021 Morbid obesity; Practice ID: 0001 Josselyn Schulte [facility] 17:41:04 Poor growth affectin g manageme nt 098192473 Completed 201405/30/2021 GROWTH POOR SGA;Prac maxwell ID: 0001 Josselyn Schulte [facility] 17:41:06 Transien t hyperten dario of pregnanc y - not delivere d 212903624 Completed 201405/30/2021 Antepart um transien t hyperten dario;Pra ctice ID: 0001 Josselyn Schulte [facility] 17:41:33 Routine antenata l care Completed 201405/30/2021 Supervis ion of other normal pregnanc y;Practi ce ID: 0001 Josselyn Schulte [facility], [facility] 17:41:20 Breech presenta tion - delivere d [id number] Completed 201405/30/2021 Breech presenta tion without mention of version, delivere d;Practi ce ID: 0001 Josselyn Schulte [facility], [facility] 17:40:32 Single live from singleto n pregnanc y 578812666 Completed 201405/30/2021 Mother with single liveborn ;Practic e ID: 0001 Josselyn sanford [facility] 17:41:25 Cellulit is 261701470 Completed 201405/30/2021 Cellulit is and abscess of other specifie d sites;Pr actice ID: 0001 Josselyn sanford [facility] 17:40:35 Postoper ative follow-u p visit Completed 201405/30/2021 Follow Up Surgery; Practice ID: 0001 Josselyn Schulte [facility] 17:41:08 Hyperten dario complica ting pregnanc y, childbir th and the puerperi um [id number] Completed 201405/30/2021 HYPERTEN S POSTPART UM;Pract ice ID: 0001 Josselyn Schulte [facility] 17:40:50 Complica tion of obstetri tony surgical wound [id number] Completed 201405/30/2021 OB SURG COMP NEC-POST PAR;Prac maxwell ID: 0001 Josselyn Schulte [facility] 17:40:37 Postpart um care Completed 201405/30/2021 Postpart um follow-u p;Practi ce ID: 0001 Josselyn Schulte [facility] 17:41:[address] Concept Completed 201605/30/2021 Encntr for swager operator exam (general ) (routine ) w/o abn findings ;Recorde d Elsewher e: No Locat ion: Shaylee gill [facility] S ource: EHR Apiculturist ruth: N Practi ce ID: 0001 David lable Time: 03:00:00 PM Josselyn sanford [facility] 17:41:28 Low grade squamous intraepi thelial lesion on cervical Papanico laou smear [id number] 105 Completed 201605/30/2021 Low grade intrepit h lesion cyto smr crvx (LGSIL); Recorded Elsewher e: No Locat ion: [facility] S ource: EHR Apiculturist ruth: N Vamshi ce ID: 0001 David lable Time: 02:27:03 PM Josselyn sanford [facility] 17:40:55 Human papillom avirus deoxyrib onucleic acid detected , high risk on cervical specimen [id number] Completed 201705/30/2021 Cervical high risk HPV DNA test positive ;Practic e ID: 0001 Josselyn Schulte [facility] 17:40:[address] Concept Completed 201705/30/2021 Encntr for general adult medical exam w/o abnormal findings ;Recorde d Elsewher e: No Locat ion: [facility] S ource: EHR Apiculturist ruth: N Vamshi ce ID: [id number] David lable Time: 08:00:00 AM [facility] 17:41:26 Screenin g for malignan t neoplasm of rectum Completed 201705/30/2021 Encounte r for screenin g for malignan t neoplasm of rectum;P ractice ID: 0001 Josselyn Schulte [facility] 17:41:23 Problem Notes None recorded. Procedures Surgical History Date Name Laterality Status Provider Name and Address Organization Details Recorded Time 08/15/20 24 Date of Last Mammogram completed [facility] 08/17/2024 10:00:58 09/05/20 23 Date of Last Colonoscopy completed [facility] 08/17/2024 09:54:27 07/19/20 23 Date of Last Pap Smear completed [facility] 08/12/2024 10:52:04 09/30/19 23 perinasal sinusotomy completed Yasmine Xavier [facility] 07/19/2023 09:19:43 09/30/19 15 delivery completed [facility] 05/28/2020 22:45:00 09/30/19 13 Dilation and Curettage completed [facility] 05/28/2020 22:43:33 09/30/19 12 excision of vulval lesion completed [facility] 05/28/2020 22:43:16 07/31/19 93 appendectomy completed [facility] 05/28/2020 22:42:12 cholecystectomy completed [facility] 05/28/2020 22:42:21 tonsillectomy completed [facility] 05/28/2020 22:42:28 Imaging Results None recorded. Procedure Notes None recorded. Medical Equipment None Reported. Allergies Allergen ID Allergen Name Allergen Category Reaction Reaction Severity Criticality Documentation Date Start Date Code Code System Note Provider Name and Address Organization Details Recorded Time 64942 ciproflox acin medicatio n Not available Not available Not available 09/16/2020 2551 RxNorm Comme nt: [facility] Agent : Cipro ; Not Available [facility] 14:20:35 1868 Cipro medicatio n Not available Not available Not available 05/28/202061271 3 RxNorm Josselyn Schulte [facility] 1 10:20:01 1869 Product containin g penicilli n (product) medicatio n Not available Not available Not available 05/28/2020 41543 8001 SNOMED [facility] 0 12:14:05 Medications Name Sig Start Date Stop Date Status Note LastModified by Organization Details LastModified Time Prometriu m 200 mg capsule TAKE 1 CAPSULE BY ORAL ROUTE EVERY DAY 04/28 completed Prescrib ed Elsewher e: No [facility]at [facility] By: irving Gill ncounter DateTime : 08/09/20 14 11:19:35 AM Not Available Not Available Not Available Mirena 21 mcg/24 hr (up to 8 years) 52 mg intrauter ine device 03/11 completed Prescrib ed Elsewher e: No Locat ion: [facility]ify By: jeffery montesinos DateTime : 02/20/20 12 09:00:00 AM Not Available Not Available Not Available Augmentin 875 mg-125 mg tablet take 1 tablet by oral route every 12 hours 12/28 completed Prescrib ed Elsewher e: No Locat ion: [facility]ify By: amtrudy Gill ncounter DateTime : 09/20/20 14 08:55:22 AM Not [...] Prescrib ed Elsewher e: No Locat ion: [facility] By: arabella montesinos DateTime : 01/02/20 14 09:00:00 AM Not [...] Prescrib ed Elsewher e: Yes [facility] By: [email or web address] Gill ncomaddy DateTime : [...] Prescrib ed Elsewher e: Yes Loca tion: [facility]ify By: tgingric h Encoun ter DateTime : 07/19/20 14 10:00:00 AM [...] Prescrib ed Elsewher e: No Locat ion: [facility]ify By: tgingric h Encoun ter DateTime : 03/12/20 14 04:00:00 PM Not Available Not Available Not Available alprazola m 0.25 mg tablet TAKE 1 TABLET BY MOUTH DAILY NEEDED FOR ANXIETY active Not Available Not Available No t Available Methergin e 0.2 mg tablet take 1 tablet (0.2MG) by oral route every 6 hours 08/13 completed Prescrib ed Elsewher e: No [facility]at [facility] By: ismael mireles DateTime : [...] Prescrib ed Elsewher e: Yes Loca [facility]ion: [facility] By: jeffery montesinos DateTime : [...] Prescrib ed Elsewher e: Yes Loca tion: [facility] By: davey julien DateTime : 04/28/20 15 11:30:00 AM Not Available Not Available Not Available Zoloft 05/30 completed Not Available Not Available Not Available Vitamin D3 10 mcg (400 unit) capsule 05/30 completed Prescrib ed Elsewher e: Yes Loca tion: [facility] By: irving mireles DateTime : 04/28/20 15 11:30:00 AM Not Available Not Available Not Available Kylee-Delroy uo DHA 29 mg-1 mg-400 mg oral pack take 2 by Oral route every day for 30 days 09/01 completed Prescrib ed Elsewher e: No Locat ion: [facility]ify By: song mireles DateTime : 08/03/20 14 08:30:00 AM Not Available Not Available Not Available 24Hour Allergy 10 mg tablet active Not Available Not Available Not Available Nurtec ODT 75 mg disintegr ating tablet active [...] Body mass index (BMI) Body weight Systolic And Diastolic Provider Name and Address Organization Details Last Updated DateTime 05/28/2020 161.29 cm 50.7 kg/m2 165593.38 g 142/87 mm[Hg] Verónica Lovell [facility] 05/28/2020 12:09:10 Date Recorded Systolic And Diastolic Provider Name and Address Organization Details Last Updated DateTime 05/31/2021 142/80 mm[Hg] Alison Lee [facility]- [address], [place], [address], [facility] 05/31/2021 11:23:58 Date Recorded Body height Body mass index (BMI) Body weight Provider Name and Address Organization Details Last Updated DateTime 05/31/2021 158.75 cm 51.3 kg/m2 188675.83 g [facility] 05/31/2021 10:19:18 Date Recorded Body height Body mass index (BMI) Body weight Systolic And Diastolic Provider Name and Address Organization Details Last Updated DateTime 06/06/2022 158.75 cm 42.5 kg/m2 973510.8 g 112/76 mm[Hg] Josselyn [facility] 06/06/2022 09:49:43 Date Recorded Body height Body mass index (BMI) Body weight Systolic And Diastolic Provider Name and Address Organization Details Last Updated DateTime 07/19/2023 158.75 cm 40.9 kg/m2 081719.47 g 133/83 mm[Hg] Yasmine Xavier [facility] 07/19/2023 09:16:20 Date Recorded Body height Body mass index (BMI) Body weight Systolic And Diastolic Provider Name and Address Organization Details Last Updated DateTime 08/17/2024 158.75 cm 43.8 kg/m2 264177.1 g 143/83 mm[Hg] Latricia Kevin [facility] 08/17/2024 09:59:31 Social History Question Answer Notes LastModified by Organizat ion Details LastModified Time Tobacco Smoking Status Never Smoker Yasmine Xavier [facility], [facility] 07/19/2023 09:17:59 Do You Have An Advance Directive? No Information n ot available 05/31/2021 How Many Years Have You Consumed Alcohol? 20 Information not available 05/31/2021 Are You Blind Or Do You Have Difficulty Seeing? No Information n ot available 05/31/2021 What Is Your Level Of Caffeine Consumption? Moderate Information not available 06/06/2022 How Much Tobacco Do You Chew? None Information not available 05/31/2021 In The 14 Days Before Symptom Onset, Have You Had Close Contact With A Laboratory-confirm ed COVID-19 While That Case Was Ill? No Information n ot available 05/31/2021 In The 14 Days Before [...] Of Diet Are You Following? SPECIFIC Information n ot available 06/06/2022 What Is The Highest Grade Or Level Of School You Have Completed Or The Highest Degree You Have Received? [id number] Information not available 05/31/2021 Are There Any Guns Present In Your Home? Yes [email or web address] Information not available 07/19/2023 Do You Use [...] IV Drugs? No Information not available 05/31/2021 Do You Have Difficulty Walking Or Climbing Stairs? No [email or web address] Information not available 07/19/2023 Sex: Unknown Functional Status Question Answer Note LastModified by Organizat ion Details LastModified Time Do you use any illicit or recreational drugs? No Information not available 05/31/2021 What is your level of alcohol consumption? Occasional Information not available 05/31/2021 Are you able to walk independently without assistance or assistive devices? [email or web address] Information not available 05/31/2021 Are you able to care for yourself independently? 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 No [email or web address] Information not available 07/19/2023 What is your exercise level? Moderate Information not available 07/19/2023 Mental Status Question Answer Note LastModified by Organization D etails LastModified Time Do you feel stressed (tense, restless, nervous, or anxious, or unable to sleep at night)? [id number] [email or web address] Information not available 07/19/2023 Family History Relationship Description Onset Age of this Age Resolved Age Notes LastModified by Organization Details LastModified Time Father Hypertensive disorder [email or web address] Not available 2019 22:40:37 Father Chronic hepatitis Not available 2023 09:39:59 Father Hyperlipidem ia [email or web address] Not available 2023 09:39:59 Father Carcinoma of prostate [email or web address] Not available 2023 09:39:59 Medical History Condition [...] Diagnosis SNOMED-CT Code Diagnosis ICD10 Code Diagnosis IMO Codes Diagnosis Note [id number] Alison Lee [facility] [address],[facility] [address] 05/28/2020 11:55:22 05/28/2020 12:45:14 Gynecologic examination 81526857 Z01.419 Suggested Calcium with Vitamin D 1200-1500m g daily. Patient advised to get an annual flu shot in the fall and she could obtain at [facility] or [facility] clinic. Also to obtain TDap vaccinatio n [...] please call or respond to this email. Tenderness of breast 552 45309 N64.4 Right breast tenderness present no connected to menses. Screening mammography 24 525694 Z12.31 [id number] Alison Lee [facility] [address] [address] 05/31/2021 10:07:55 05/31/2021 15:53:11 Gynecologic examination 56280630 Z01.419 Suggested Calcium with Vitamin D 1200-1500m g daily. Patient advised to get an annual flu shot in the fall and she could obtain at [facility] or [facility] take care clinic. 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 [id number] Alison Lee , [facility] [address] [address] 06/06/2022 09:20:51 06/06/2022 10:15:33 Gynecologic examination 70836821 Z11.51 Z11.3 Z11.8 Suggested Calcium with Vitamin D 1200-1500m g daily. Patient advised to get an annual flu shot in the fall and she could obtain at [facility] or [facility] take care clinic. Also to obtain TDap vaccinatio [...] Dexa Screen na Routine Labs PCPMammo ordered [id number] Alison Lee , [facility] [address] [address] 07/19/2023 09:08:40 07/19/2023 09:31:18 Gynecologic examination 59348812 Z11.51 Z11.3 Z11.8 Suggested Calcium with Vitamin D 1200-1500m g daily. Patient advised to get an annual flu shot in the fall and she could obtain at [facility] or [facility] clinic. Also to obtain TDap vaccinatio n [...] Screen naRoutine Labs PCPMammo ordered Screening mammography 24 521422 Z12.31 Contracept ion care management [id number] Z30.9 Discussed all control options and pt [...] All questions answered to patient satisfacti on. [id number] Richard Garcia MD [facility] [address] [address] 08/17/2024 09:39:10 08/17/2024 13:59:28 Gynecologic examination 59029776 Z01.419 Annual gynecologi tony exam performed. Patient [...] STI testing - requested Screening mammography 24 022071 Z12.31 Venereal d isease screening 729604828 Z11.3 Pt requested STI testing.Di scussed the various types of STDs, related symptoms and the potential consequenc es (including effects on fertility) of STD infections . Reviewed ways to limit exposure and prevention techniques . Menorrhagia [id number] N9 2.0 Today we discussed multiple options [...] None Recorded Advance Directives Directive N: Payers Insurance Date Sequence Insurance Name Policy Number Policy Mtz Covered Member ID Mtz Member ID Guarantor Name 08/16/2024 1 [facility] [id number] Keely Jesuser [id number] Keely Jesuser Notes Date Note Type Note Provider Name and Address Organization Details Recorded Time 0 text/html Annual GYNReported by PatientHistoryFor history, patient reportsno gynecologic complaints.Genitourinary symptomsFor menstrual cycle, patient reportsnormal menses. For urinary symptoms, patient reportsno hematuriaandno incontinence. For vulva, patient reportsno genital lesion. For vagina, patient reportsnormal vaginal discharge.Breast symptomsFor breast, patient reportsbreast painbut reportsno breast lumpandno nipple discharge(right breast).ContraceptionFor current contraception, patient reportssatisfied with current contraceptionandcondoms.E ndocrine symptomsFor sexual complaints, patient reportsno sexual complaints,no pain during intercourse, andnormal libido. For menopausal symptoms, patient reportsno menopausal symptomsandnormal vaginal lubrication.Psychological symptomsFor psychological symptoms, patient reportsno depression,no anxiety, andno pmdd.Preventative measuresFor preventive measures, patient reportsencourage self breast examination,encourage regular exercise,encourage no tobacco use,encourage regular mammograms starting age 40,history of abnormal pap smear/cervical dysplasia, andneeds to schedule mammogram. Alison Lee, [facility]- [address], [place], [address], [facility] 05/28/2020 12:36:34 1 text/html Annual GYNReported by PatientHistoryFor history, patient reportsno gynecologic complaints.Genitourinary symptomsFor menstrual cycle, patient reportsnormal menses. For urinary symptoms, patient reportsno hematuriaandno incontinence. For vulva, patient reportsno genital lesion. For vagina, patient reportsnormal vaginal discharge.Breast symptomsFor breast, patient reportsno breast pain,no breast lump, andno nipple discharge.ContraceptionFo r current contraception, patient reportscondoms.Endocrine symptomsFor sexual complaints, patient reportsno sexual complaints,no pain during intercourse, andnormal libido. For menopausal symptoms, patient reportsno menopausal symptomsandnormal vaginal lubrication.Psychological symptomsFor psychological symptoms, patient reportsno depression,no anxiety, andno pmdd.Preventative measuresFor preventive measures, patient reportsencourage self breast examination,encourage regular exercise,encourage no tobacco use,encourage regular mammograms starting age 40,history of abnormal pap smear/cervical dysplasia (+hr hpv in 2017 but wnl since that time.), andneeds to schedule mammogram. Recently stung by a bee.Very allergicHad to get a prednisone injection & then has been on prednisone x 7 days.Feels this is why her BP is elevated as it is normally fine.She goes back to doctor in a couple of days for check up. Alison Lee, [facility] [address], [place], [address], [facility] 05/31/2021 11:24:18 2 text/html Annual GYNReported by PatientGenitourinary symptomsFor menstrual cycle, patient reportsnormal menses. For urinary symptoms, patient reportsno hematuriaandno incontinence. For vulva, patient reportsno genital lesion. For vagina, patient reportsnormal vaginal discharge.Breast symptomsFor breast, patient reportsno breast pain,no breast lump, andno nipple discharge.ContraceptionFo r current contraception, patient reportssatisfied with current contraceptionandcondoms.E ndocrine symptomsFor sexual complaints, patient reportsno sexual complaints,no pain during intercourse, andnormal libido. For menopausal symptoms, patient reportsno menopausal symptomsandnormal vaginal lubrication.Psychological symptomsFor psychological symptoms, patient reportsno depression,no anxiety, andno pmdd.Preventative measuresFor preventive measures, patient reportsencourage self breast examination,encourage regular exercise,encourage no tobacco use,encourage regular mammograms starting age 40,followed with yearly pap smears, andneeds to schedule mammogram. Alison Lee [facility] [address], [place], [address], [facility] 06/06/2022 09:57:59 3 text/html Annual GYNReported by PatientHistoryFor history, patient reportsno gynecologic complaints.Genitourinary symptomsFor menstrual cycle, patient reportsmenorrhagia. For urinary symptoms, patient reportsno hematuriaandno incontinence. For vulva, patient reportsno genital lesion. For vagina, patient reportsnormal vaginal discharge.Breast symptomsFor breast, patient reportsno breast pain,no breast lump, andno nipple discharge.ContraceptionFo r current contraception, patient reportscondoms.Endocrine symptomsFor sexual complaints, patient reportsno sexual complaints,no pain during intercourse, andnormal libido. For menopausal symptoms, patient reportsno menopausal symptomsandnormal vaginal lubrication.Psychological symptomsFor psychological symptoms, patient reportsno depression,no anxiety, andno pmdd.Preventative measuresFor preventive measures, patient reportsencourage self breast examination,encourage regular exercise,encourage no tobacco use,encourage regular mammograms starting age 40,followed with yearly pap smears,needs to schedule mammogram, andneeds to schedule colonoscopy. Alison Lee, [facility] [address], [place], [address], [facility] 07/19/2023 09:31:12 4 text/html Annual GYNReported by PatientHistoryFor history, patient reportsno gynecologic complaints.Genitourinary symptomsFor menstrual cycle, patient reportsnormal menses. For urinary symptoms, patient reportsno hematuriaandno incontinence. For vulva, patient reportsno genital lesion. For vagina, patient reportsnormal vaginal discharge.Breast symptomsFor breast, patient reportsno breast pain,no breast lump, andno nipple discharge.ContraceptionFo r current contraception, patient reportscondoms.Endocrine symptomsFor sexual complaints, patient reportsno sexual complaints,no pain during intercourse, andnormal libido. For menopausal symptoms, patient reportsno menopausal symptomsandnormal vaginal lubrication.Psychological symptomsFor psychological symptoms, patient reportsno depression,no anxiety, andno pmdd.Preventative measuresFor preventive measures, patient reportsencourage self breast examination,encourage regular exercise,encourage no tobacco use,encourage regular mammograms starting age 40,mammogram performed within the past year, andup to date on colonoscopy screening. Patient presents for annual well woman exam.Patient reports heavy periods that last 3-4 days with regular cycles.Patient not currently on BC, uses condoms. Patient considering getting IUD. KENDALL GODFREY NP [address], [place], [address], [facility] 08/17/2024 13:56:42 OBGyn Episode Ob Episode Information Episode Created Date Number of Fetuses Patient Bloodtype Patient rh Status Prepregnancy Weight lbs Domestic Partner Domestic Partner Phone Father Name Residential Child Care Counselor Status 05/28/20 20 1 CLOSED Fetus Data [...] Domestic Partner Domestic Partner Phone Father Name Residential Child Care Counselor Status 05/28/20 20 1 CLOSED Fetus Data [...] Domestic Partner Domestic Partner Phone Father Name Residential Child Care Counselor Status 05/28/20 20 1 CLOSED Fetus Data [...]
== END 2025-07-19 14:11 | disposition home or self-care (01) ==
PROVIDERS: PCP Nurse Practitioner Adult Health; Visit Provider Nurse Practitioner Adult Health
DX: R51.9 Headache, unspecified (principal); G89.29 Other chronic pain
CPT/HCPCS: 70450